=== PATIENT | male | born 1955 | race Caucasian/White ===

== ENCOUNTER 2018-11-19 12:19 | Outpatient (CLI) | payer MEDICARE, SELFPAY ==
--- NOTE | 2018-11-19 12:40 | PC.NURSE ---
pt sent to outpt infusion dept for therapeutic phlebotomy per lab. pt to have blood drawn to confirm results of h/h and iv start per nursing staff. lab staff at to obtain blood for labs.
[2018-11-19 13:20] VITALS: BP 125/68; PULSE 62; RESP 18; TEMP 36.6; O2SAT 97
[2018-11-19 13:46] LABS: Hematocrit 51.2 % (42.0-52.0); Hemoglobin 16.6 g/dL (14.1-18.0)
== END 2018-11-19 13:20 | disposition home or self-care (01) ==
PROVIDERS: PCP Family Medicine; Visit Provider Family Medicine
DX: D75.1 Secondary polycythemia (principal)
CPT/HCPCS: 85014; 85018; 99195

== ENCOUNTER 2020-12-21 09:55 | Outpatient (CLI) | payer MEDICARE, SELFPAY ==
--- NOTE | 2020-12-21 10:05 | PC.NURSE ---
1005: 20g Iv established to the right forearm. positive blood return, flushes with ease and no s/s of infiltration pt vitals assessed before therapeutic phlebotomy as 149/77 temp 98.1 pulse 65 O2 sat 97 RA phlebotomy performed by AMBROSE Dugan. 250ml removed during this session. pt tolerated well.
[2020-12-21 10:38] VITALS: BP 146/78; PULSE 65; RESP 17; TEMP 36.8; O2SAT 97
== END 2020-12-21 10:40 | disposition home or self-care (01) ==
LOC: LAB 09:57 → INF 10:01
PROVIDERS: Visit Provider Family Medicine
DX: D58.2 Other hemoglobinopathies (principal)
CPT/HCPCS: 99195

== ENCOUNTER 2022-11-27 09:31 | Outpatient (CLI) | payer MEDICARE, SELFPAY ==
[2022-11-27 09:46] VITALS: BMI 31.8
[2022-11-27 10:30] LABS: Hematocrit 56.7 % (42.0-52.0); Hemoglobin 18.4 g/dL (14.1-18.0)
[2022-11-27 10:45] VITALS: BP 141/89; PULSE 62; RESP 16; TEMP 36.8; O2SAT 99
[2022-11-27 11:05] VITALS: BP 134/79; PULSE 57; RESP 18; TEMP 36.8; O2SAT 99
== END 2022-11-27 11:10 | disposition home or self-care (01) ==
LOC: LAB 09:33 → INF 09:36
PROVIDERS: Visit Provider Family Medicine
DX: D45 Polycythemia vera (principal)
CPT/HCPCS: 36415; 85014; 85018; 99195

== ENCOUNTER → 2023-01-24 14:58 | Outpatient (CLI) | payer MEDICARE, SELFPAY ==
[2023-01-24 15:59] LABS: Basophils % 0.4 % (0.1-2.0); Eosinophils # 0.4 K/mm3 (0.0-0.4); Eosinophils % 7.4 % (0.1-12.0); Hematocrit 54.8 % (42.0-52.0); Hemoglobin 17.8 g/dL (14.1-18.0); Lymphocytes # 1.7 K/mm3 (0.7-4.5); Lymphocytes % 28.3 % (10-50); Mean Corpuscular HGB Conc 32.4 g/dL (31.8-35.4); Mean Corpuscular Hemoglobin 29.8 pg (27.0-31.2); Mean Corpuscular Volume 91.9 fl (80-94); Mean Platelet Volume 9.3 fl (7.4-10.4); Monocytes # 0.5 K/mm3 (0.1-1.0); Monocytes % 8.1 % (1.7-9.3); Neutrophils # 3.3 K/mm3 (1.8-7.8); Neutrophils % 55.7 % (37.0-80.0); Platelet Count 165 K/mm3 (142-424); Red Blood Count 5.96 M/mm3 (4.60-6.20); Red Cell Distribution Width 15.5 % (11.5-17.5); White Blood Count 5.8 K/mm3 (4.8-10.8)
[2023-01-24 16:18] LABS: Chloride 93 mmol/L (98-107); Potassium 4.8 mmoL/L (3.5-5.1); Sodium 134 mmol/L (136-145)
[2023-01-24 16:20] LABS: Alanine Aminotransferase 29 U/L (12-78); Albumin Level 4.4 g/dl (3.5-5.0); Albumin/Globulin Ratio 1.5 (1.1-1.8); Alkaline Phosphatase 60 U/L (38-126); Anion Gap 11.8 mEq/L (5-15); Aspartate Amino Transferase 31 U/L (17-59); Bilirubin,Total 0.7 mg/dl (0.2-1.3); Blood Urea Nitrogen 10 mg/dl (9-20); Carbon Dioxide 34 mmol/L (22.0-30.0); Estimated Glomerular Filt Rate 60 ml/min (>60); GFR (African American) 73 ML/MIN (>60); Total Protein,Serum 7.4 g/dl (6.3-8.2)
[2023-01-24 16:21] LABS: Calcium 8.8 mg/dl (8.4-10.2); Chol/HDL Ratio 6.9 (1-3.5); Cholesterol 180 mg/dl (140-200); Glucose 191 mg/dl (74-100); HDL Cholesterol 26 mg/dl (40-60); Triglycerides 190 mg/dl (30-150); VLDL Cholesterol 38 mg/dL (0-40)
[2023-01-24 16:37] LABS: Free T4 (Free Thyroxine) 1.15 ng/dl (0.78-2.19)
[2023-01-24 16:52] LABS: Thyroid Stimulating Hormone 2.23 uIU/mL (0.465-4.68)
[2023-01-30 08:18] LABS: Testosterone, Total, LC/MS 344 ng/dL (.)
== END ==
PROVIDERS: PCP Internal Medicine; Visit Provider Internal Medicine
DX: E10.9 Type 1 diabetes mellitus without complications (principal); Z13.220 Encounter for screening for lipoid disorders; Z00.00 Encounter for general adult medical examination without abnormal findings; E29.1 Testicular hypofunction; Z13.29 Encounter for screening for other suspected endocrine disorder; Z13.1 Encounter for screening for diabetes mellitus; Z79.4 Long term (current) use of insulin; Z79.899 Other long term (current) drug therapy
CPT/HCPCS: 80053; 80061; 83036; 84403; 84439; 84443; 85025

== ENCOUNTER → 2023-02-08 13:32 | Outpatient (CLI) | payer MEDICARE, SELFPAY ==
[2023-02-08 14:23] LABS: Microalbumin/Creatinine Ratio 19.3
[2023-02-08 14:58] LABS: Creatinine,Urine Random 230 mg/dL (Not Estab.)
== END ==
PROVIDERS: PCP Internal Medicine; Visit Provider Internal Medicine
DX: E11.9 Type 2 diabetes mellitus without complications (principal); Z79.4 Long term (current) use of insulin
CPT/HCPCS: 82043; 82570

== ENCOUNTER → 2023-02-12 08:17 | Outpatient (CLI) | payer MEDICARE, SELFPAY | PROVIDERS: PCP Student in an Organized Health Care Education/Training Program; Visit Provider Student in an Organized Health Care Education/Training Program | DX: R05.9 Cough, unspecified (principal) | CPT/HCPCS: 87635 ==

== ENCOUNTER 2023-04-20 08:55 | Outpatient (CLI) | payer MEDICARE, SELFPAY ==
--- NOTE | 2023-04-20 09:18 | CT_ITS ---
FINAL REPORT CLINICAL HISTORY: sinusitis FINDINGS: There is no acute fracture. There is a lobular mucoperiosteal thickening in both maxillary sinuses. There are no air-fluid levels. There is abnormal mucoperiosteal thickening in the right cell of the sphenoid sinuses. The right cell is nearly completely opacified. The ostiomeatal units are patent. IMPRESSION: Chronic maxillary and sphenoid sinusitis. Patent ostiomeatal units. Reviewed, Interpreted and Dictated by Jose Palma MD Transcribed by Kim De Leon Authenticated and [facility]
== END 2023-04-20 23:59 ==
LOC: RAD 08:56
PROVIDERS: PCP Internal Medicine; Visit Provider Nurse Practitioner
DX: J32.0 Chronic maxillary sinusitis (principal); J32.3 Chronic sphenoidal sinusitis; J34.89 Other specified disorders of nose and nasal sinuses
CPT/HCPCS: 70486

== ENCOUNTER 2023-07-11 14:44 | Outpatient (CLI) | payer MEDICARE, SELFPAY ==
[2023-07-11 15:18] LABS: Basophils # 0.1 K/mm3 (0-0.2); Basophils % 1.4 % (0.1-2.0); Eosinophils # 0.6 K/mm3 (0.0-0.4); Eosinophils % 8.6 % (0.1-12.0); Hematocrit 56.1 % (42.0-52.0); Hemoglobin 17.9 g/dL (14.1-18.0); Lymphocytes # 1.8 K/mm3 (0.7-4.5); Lymphocytes % 26.6 % (10-50); Mean Corpuscular HGB Conc 31.9 g/dL (31.8-35.4); Mean Corpuscular Hemoglobin 29.2 pg (27.0-31.2); Mean Corpuscular Volume 91.4 fl (80-94); Mean Platelet Volume 8.8 fl (7.4-10.4); Monocytes # 0.6 K/mm3 (0.1-1.0); Monocytes % 8.7 % (1.7-9.3); Neutrophils # 3.7 K/mm3 (1.8-7.8); Neutrophils % 54.8 % (37.0-80.0); Platelet Count 159 K/mm3 (142-424); Red Blood Count 6.14 M/mm3 (4.60-6.20); Red Cell Distribution Width 15.7 % (11.5-17.5); White Blood Count 6.8 K/mm3 (4.8-10.8)
[2023-07-11 15:40] LABS: Alanine Aminotransferase 23 U/L (12-78); Albumin Level 4.3 g/dl (3.5-5.0); Albumin/Globulin Ratio 1.3 (1.1-1.8); Alkaline Phosphatase 56 U/L (38-126); Anion Gap 14.9 mEq/L (5-15); Aspartate Amino Transferase 27 U/L (17-59); Bilirubin,Total 0.8 mg/dl (0.2-1.3); Blood Urea Nitrogen 13 mg/dl (9-20); Calcium 9.4 mg/dl (8.4-10.2); Carbon Dioxide 32 mmol/L (22.0-30.0); Chloride 94 mmol/L (98-107); Cholesterol 187 mg/dl (140-200); Estimated Glomerular Filt Rate 60 ml/min (>60); GFR (African American) 73 ML/MIN (>60); Globulin 3.2 g/dL (1.3-3.2); Glucose 161 mg/dl (74-100); HDL Cholesterol 31 mg/dl (40-60); Potassium 4.9 mmoL/L (3.5-5.1); Sodium 136 mmol/L (136-145); Total Protein,Serum 7.5 g/dl (6.3-8.2); Triglycerides 200 mg/dl (30-150); VLDL Cholesterol 40 mg/dL (0-40)
[2023-07-11 15:52] LABS: Direct LDL Cholesterol 102.29 mg/dL (100-129)
[2023-07-11 16:12] LABS: Prostate Specific Ag Screen 0.9 ng/ml (0.0-4.0); Thyroid Stimulating Hormone 2.02 uIU/mL (0.465-4.68)
[2023-07-11 17:30] LABS: Hemoglobin A1C 9.5 % (4.0-6.0)
[2023-07-13 13:04] LABS: DHEA-Sulfate 46.9 ug/dL (30.9-295.6); Testosterone,Total 909 ng/dL (264-916)
== END 2023-07-11 23:59 | disposition home or self-care (01) ==
LOC: LAB.DROPOF 14:44
PROVIDERS: PCP Nurse Practitioner Family; Visit Provider Nurse Practitioner Family
DX: E29.1 Testicular hypofunction (principal); E11.9 Type 2 diabetes mellitus without complications; Z79.4 Long term (current) use of insulin; Z12.5 Encounter for screening for malignant neoplasm of prostate; D49.7 Neoplasm of unspecified behavior of endocrine glands and other parts of nervous system; Z79.899 Other long term (current) drug therapy
CPT/HCPCS: 80053; 80061; 82626; 83036; 84403; 84443; 85025; G0103

== ENCOUNTER 2023-10-16 14:21 | Outpatient (CLI) | payer MEDICARE, SELFPAY ==
[2023-10-16 14:10] LABS: Basophils # 0.1 K/mm3 (0-0.2); Basophils % 0.7 % (0.1-2.0); Eosinophils # 0.9 K/mm3 (0.0-0.4); Eosinophils % 10.7 % (0.1-12.0); Lymphocytes # 2.6 K/mm3 (0.7-4.5); Lymphocytes % 31.6 % (10-50); Mean Corpuscular HGB Conc 30.5 g/dL (31.8-35.4); Mean Corpuscular Volume 91.9 fl (80-94); Mean Platelet Volume 8.8 fl (7.4-10.4); Monocytes # 0.6 K/mm3 (0.1-1.0); Monocytes % 7.1 % (1.7-9.3); Neutrophils # 4.1 K/mm3 (1.8-7.8); Neutrophils % 49.8 % (37.0-80.0); Platelet Count 177 K/mm3 (142-424); Red Blood Count 6.42 M/mm3 (4.60-6.20); Red Cell Distribution Width 14.8 % (11.5-17.5); White Blood Count 8.2 K/mm3 (4.8-10.8)
[2023-10-16 14:37] LABS: Alanine Aminotransferase 22 U/L (12-78); Albumin Level 4.1 g/dl (3.5-5.0); Albumin/Globulin Ratio 1.2 (1.1-1.8); Alkaline Phosphatase 60 U/L (38-126); Aspartate Amino Transferase 30 U/L (17-59); Bilirubin,Total 0.8 mg/dl (0.2-1.3); Blood Urea Nitrogen 10 mg/dl (9-20); Calcium 9.1 mg/dl (8.4-10.2); Carbon Dioxide 33 mmol/L (22.0-30.0); Chloride 97 mmol/L (98-107); Estimated Glomerular Filt Rate 60 ml/min (>60); GFR (African American) 73 ML/MIN (>60); Globulin 3.4 g/dL (1.3-3.2); Glucose 145 mg/dl (74-100); Sodium 136 mmol/L (136-145); Total Protein,Serum 7.5 g/dl (6.3-8.2)
[2023-10-16 16:07] LABS: Hemoglobin A1C 8.8 % (4.0-6.0)
[2023-10-18 14:14] LABS: DHEA-Sulfate 59.4 ug/dL (30.9-295.6)
[2023-10-24 15:12] LABS: Free Testosterone (Direct) 30.9 pg/mL (6.6-18.1); Testosterone, Total, LC/MS 2076.7 ng/dL (264.0-916.0)
== END 2023-10-16 23:59 | disposition home or self-care (01) ==
LOC: LAB.DROPOF 14:22
PROVIDERS: Internal Medicine; PCP Nurse Practitioner Family; Visit Provider Nurse Practitioner Family
DX: R79.89 Other specified abnormal findings of blood chemistry (principal); E11.9 Type 2 diabetes mellitus without complications; E23.2 Diabetes insipidus; E29.1 Testicular hypofunction; D49.7 Neoplasm of unspecified behavior of endocrine glands and other parts of nervous system; Z79.4 Long term (current) use of insulin; Z79.85 Long-term (current) use of injectable non-insulin antidiabetic drugs
CPT/HCPCS: 80053; 82626; 83036; 85025

== ENCOUNTER 2023-11-05 14:53 | Outpatient (CLI) | payer MEDICARE, SELFPAY ==
[2023-11-17 21:07] LABS: Testosterone, Total, LC/MS 60 ng/dL (.)
== END 2023-11-05 23:59 | disposition home or self-care (01) ==
LOC: LAB.DROPOF 14:54
PROVIDERS: PCP Nurse Practitioner Family; Visit Provider Nurse Practitioner Family
DX: R79.89 Other specified abnormal findings of blood chemistry (principal); E29.1 Testicular hypofunction; E11.9 Type 2 diabetes mellitus without complications; I10 Essential (primary) hypertension
CPT/HCPCS: 84403

== ENCOUNTER 2024-01-16 10:11 | Outpatient (CLI) | payer MEDICARE, SELFPAY ==
[2024-01-16 13:50] LABS: Microalbumin/Creatinine Ratio 18.3
[2024-01-16 13:54] LABS: Creatinine,Urine Random 181 mg/dL (Not Estab.)
[2024-01-16 14:01] LABS: Alanine Aminotransferase 21 U/L (12-78); Albumin Level 4.3 g/dl (3.5-5.0); Albumin/Globulin Ratio 1.5 (1.1-1.8); Alkaline Phosphatase 55 U/L (38-126); Anion Gap 14.4 mEq/L (5-15); Aspartate Amino Transferase 27 U/L (17-59); Bilirubin,Total 0.9 mg/dl (0.2-1.3); Blood Urea Nitrogen 9 mg/dl (9-20); Calcium 9.4 mg/dl (8.4-10.2); Carbon Dioxide 32 mmol/L (22.0-30.0); Chloride 95 mmol/L (98-107); Chol/HDL Ratio 5.6 (1-3.5); Cholesterol 169 mg/dl (140-200); Estimated Glomerular Filt Rate 74 ml/min (>60); GFR (African American) 90 ML/MIN (>60); Globulin 2.8 g/dL (1.3-3.2); Glucose 195 mg/dl (74-100); HDL Cholesterol 30 mg/dl (40-60); Magnesium 1.7 mg/dl (1.6-2.3); Potassium 4.4 mmoL/L (3.5-5.1); Sodium 137 mmol/L (136-145); Total Protein,Serum 7.1 g/dl (6.3-8.2); Triglycerides 172 mg/dl (30-150); VLDL Cholesterol 34 mg/dL (0-40)
[2024-01-16 14:13] LABS: Direct LDL Cholesterol 101.64 mg/dL (100-129)
[2024-01-16 14:33] LABS: Thyroid Stimulating Hormone 1.35 uIU/mL (0.465-4.68)
[2024-01-16 18:32] LABS: HIV (1&2) Antibody Rapid NONREACTIVE (NONREACTIVE)
[2024-01-17 07:33] LABS: HCV Ab Non Reactive (Non Reactive)
[2024-01-26 04:08] LABS: Free Testosterone (Direct) 10.2 pg/mL (6.6-18.1); Testosterone, Total, LC/MS 683.9 ng/dL (264.0-916.0)
== END 2024-01-16 23:59 | disposition home or self-care (01) ==
LOC: LAB.DROPOF 01-18 10:13
PROVIDERS: PCP Nurse Practitioner Family; Visit Provider Nurse Practitioner Family
DX: E11.9 Type 2 diabetes mellitus without complications (principal); R79.89 Other specified abnormal findings of blood chemistry; E78.5 Hyperlipidemia, unspecified; Z11.59 Encounter for screening for other viral diseases; Z79.4 Long term (current) use of insulin; Z11.4 Encounter for screening for human immunodeficiency virus [HIV]
CPT/HCPCS: 80053; 80061; 82043; 82570; 82626; 83735; 84443; 86803; 87389

== ENCOUNTER 2024-04-12 08:50 | Outpatient (CLI) | payer MEDICARE, SELFPAY ==
[2024-04-12 21:22] LABS: Coronavirus 19, PCR Not Detected (NotDetected); Human Rhinovirus Not Detected (NotDetected); Influenza B, PCR Not Detected (NotDetected); Respiratory Syncytial Virus Not Detected (NotDetected)
[2024-04-13 03:30] LABS: Influenza A, PCR Detected (NotDetected)
== END 2024-04-12 23:59 | disposition home or self-care (01) ==
LOC: LAB.DROPOF 04-13 03:57
PROVIDERS: PCP Nurse Practitioner; Visit Provider Nurse Practitioner
DX: R05.9 Cough, unspecified (principal); R50.9 Fever, unspecified
CPT/HCPCS: 87631

== ENCOUNTER 2024-05-06 15:58 | Outpatient (CLI) | payer MEDICARE, SELFPAY ==
[2024-05-06 13:46] LABS: Basophils % 0.6 % (0.1-2.0); Eosinophils # 0.5 K/mm3 (0.0-0.4); Eosinophils % 7.4 % (0.1-12.0); Hematocrit 55.7 % (42.0-52.0); Lymphocytes # 2.1 K/mm3 (0.7-4.5); Lymphocytes % 31.7 % (10-50); Mean Corpuscular HGB Conc 33.8 g/dL (31.8-35.4); Mean Corpuscular Hemoglobin 28.6 pg (27.0-31.2); Mean Corpuscular Volume 84.8 fl (80-94); Mean Platelet Volume 10.9 fl (7.4-10.4); Monocytes # 0.7 K/mm3 (0.1-1.0); Neutrophils # 3.2 K/mm3 (1.8-7.8); Neutrophils % 48.7 % (37.0-80.0); Platelet Count 186 K/mm3 (142-424); Red Blood Count 6.57 M/mm3 (4.60-6.20); Red Cell Distribution Width 13.7 % (11.5-17.5); White Blood Count 6.6 K/mm3 (4.8-10.8)
[2024-05-06 19:28] LABS: Albumin Level 4.7 g/dl (3.5-5.0); Chloride 97 mmol/L (98-107); Potassium 5.6 mmoL/L (3.5-5.1); Sodium 134 mmol/L (136-145)
[2024-05-06 19:30] LABS: Blood Urea Nitrogen 20 mg/dl (9-20); Estimated Glomerular Filt Rate 66 ml/min (>60); GFR (African American) 80 ML/MIN (>60)
[2024-05-06 19:31] LABS: Alanine Aminotransferase 25 U/L (12-78); Albumin/Globulin Ratio 1.6 (1.1-1.8); Alkaline Phosphatase 55 U/L (38-126); Anion Gap 13.6 mEq/L (5-15); Aspartate Amino Transferase 32 U/L (17-59); Bilirubin,Total 0.8 mg/dl (0.2-1.3); Calcium 9.4 mg/dl (8.4-10.2); Carbon Dioxide 29 mmol/L (22.0-30.0); Chol/HDL Ratio 6.6 (1-3.5); Cholesterol 178 mg/dl (140-200); Glucose 170 mg/dl (74-100); HDL Cholesterol 27 mg/dl (40-60); Total Protein,Serum 7.7 g/dl (6.3-8.2); Triglycerides 165 mg/dl (30-150); VLDL Cholesterol 33 mg/dL (0-40)
[2024-05-06 19:42] LABS: Direct LDL Cholesterol 107.92 mg/dL (100-129)
[2024-05-07 03:09] LABS: Hemoglobin A1C 10.3 % (4.0-6.0)
[2024-05-13 16:32] LABS: Testosterone, Total, LC/MS 793 ng/dL (.)
== END 2024-05-06 23:59 | disposition home or self-care (01) ==
LOC: LAB.DROPOF 15:58
PROVIDERS: PCP Internal Medicine; Visit Provider Internal Medicine
DX: Z13.220 Encounter for screening for lipoid disorders (principal); E11.9 Type 2 diabetes mellitus without complications; Z79.4 Long term (current) use of insulin; Z79.899 Other long term (current) drug therapy; E29.1 Testicular hypofunction
CPT/HCPCS: 80053; 80061; 83036; 84403; 85025

== ENCOUNTER 2024-07-17 09:00 | Day surgery (SDC) | payer MEDICARE, SELFPAY ==
[2024-07-15 11:32] VITALS: BMI 31.0
[2024-07-17] VITALS (7 sets, daily range): BP systolic 116–147; BP diastolic 72–86; PULSE 56–67; RESP 16–18; TEMP 36.2–36.4; O2SAT 2–99
[2024-07-17] MEDS: LACTATED RINGERS 1000ML 1,000 ML 50 ML IV (09:50)
--- NOTE | 2024-07-17 10:09 | EXP.ANES.CKL ---
[facility] Disclaimer: The information contained in this section may have been updated after the patient was seen, as this information can be updated by other users. Medical History Chronic maxillary sinusitis Deviated nasal septum Hypertension Hypertrophy of nasal turbinates Nasal septal spur Neoplasm of pituitary gland Pituitary cyst Skin cancer Sphenoid sinusitis Surgical History History of back surgery History of carpal tunnel release of both wrists once on the left, twice on the right Hx of rhinoplasty [place] teeth removed Family History Other No significant family history Social History Smoking Status: Former smoker alcohol intake: never substance use type: denies use current occupational status: unemployed Travel in the last 8 weeks?: None household members: spouse housing: house caffeine: No [facility] Anesthesia Checklist Patient Identification Patient Identification: Verbal (Name & ) Structural Data Admitted From: Home Planned Operative Procedure/s: colonoscopy Consent for Planned Operative Procedure(s) Verified: Yes NPO Status Verified Time NPO: 00:00 Additional verifications Anesthesia Reactions: No Hx Blood Transfusions: No Blood Transfusion Reaction: No Airway Assessment Mallampati Score:: Class II C-Spine Mobility Assessed: Yes TMJ Mobility Assessed: Yes Dentition: Good Dentition Neurological Assessment Level of Consciousness: Awake, Alert and Appropriate Anesthesia Plan Anesthesia Risk discussed: Yes Anesthesia Plan: Verified ASA Class: II Anesthesia Type: MAC
--- NOTE | 2024-07-17 10:29 | EXP.HP ---
History of Present Illness *Admission Date: 07/17/24 *Reason for visit:: Screening for colon cancer *History of present illness: Mr. Womack is a 69-year-old gentleman who is here for screening for colon cancer. His last colonoscopy was 10 years ago. He does have a strong family history of cancer and 5 of his siblings have had cancer (lung, breast, brain and gallbladder) but he has no family history of colon cancer. The examination is deemed medically necessary for screening colonoscopy. The patient has been seen, interviewed and examined prior to the procedure by both myself and the anesthesia provider. [facility] Disclaimer: The information contained in this section may have been updated after the patient was seen, as this information can be updated by other users. Medical History Chronic maxillary sinusitis Deviated nasal septum Hypertension Hypertrophy of nasal turbinates Nasal septal spur Neoplasm of pituitary gland Pituitary cyst Skin cancer Sphenoid sinusitis Surgical History History of back surgery History of carpal tunnel release of both wrists once on the left, twice on the right Hx of rhinoplasty [place] teeth removed Family History Other No significant family history Social History (Updated 07/17/24 @ 10:10 by Eugenio Oakes CRNA) Smoking Status: Former smoker alcohol intake: never substance use type: denies use current occupational status: unemployed Travel in the last 8 weeks?: None household members: spouse housing: house caffeine: No Have you lived/traveled outside US in past 30 days?: No Contact w/someone who lives/traveled outside US past 30 days?: No Exposure to someone with infectious disease in past 14 days?: No Do you have a fever (greater than 100.4 F or 38 C)?: No Have you tested positive for COVID-19?: No Exposed to someone with COVID-19 in past 14 days?: No Do you have a sore throat?: No Do you have a cough?: No Do you have any weakness?: No Do you have any diarrhea?: No Are you experiencing any unusual bleeding?: No Do you have any muscle aches/pain?: No Do you have any abdominal pain?: No Are you experiencing loss of taste or smell?: No Other Medical History Have you received the Pneumonia Vaccine: Yes Review of Systems Review of Systems Review of systems (narrative): Negative *Cardiovascular Comments: Negative *Gastrointestinal Comments: Negative *Genitourinary Comments: Negative *Musculoskeletal Comments: Negative *Neurologic Comments: Negative Meds Home Medications and Allergies Home Medications ?Medication ?Instructions ?Recorded ?Confirmed ?Type methadone 10 mg tablet 10 mg PO TID Pain 11/19/18 07/17/24 History desmopressin 0.1 mg tablet (DDAVP) 0.1 mg PO BID 90 days #180 tabs 07/11/23 07/17/24 Rx blood sugar diagnostic (Accu-Chek #100 ea 04/02/24 07/15/24 Rx Ailin Plus test strips) lisinopril 20 mg tablet See Rx Instructions .Route 05/02/24 07/17/24 Rx .COMPLEX #90 tabs insulin degludec 100 unit/mL (3 36 unit (0.36 mL) SQ DAILY #15 mL 05/20/24 07/17/24 Rx mL) subcutaneous pen (Tresiba FlexTouch U-100 insulin) New Prescriptions to Start Prescriptions: Allergies Allergy/AdvReac Type Severity Reaction Status Date / Time No Known Allergies Allergy Verified 07/17/24 09:35 Exam Data for Last 24 hours Vital signs and Labs for Last 24 Hours: Temp Pulse Resp BP Pulse Ox O2 Del Method 97.6 F 67 18 147/86 H 96 Room Air 07/17/24 09:51 07/17/24 09:51 07/17/24 09:51 07/17/24 09:51 07/17/24 09:51 07/17/24 09:51 I & O for Last 24 hours: Intake & Output 07/14/24 07/15/24 07/16/24 07/17/24 23:59 23:59 23:59 23:59 Weight 229 lb *Routine HEENT Exam Head: Present normocephalic Eye: Present EOMI and PERRL ENT: Present mucous membranes moist *Routine Neck Exam Neck: Present supple *Routine Respiratory Exam Respiratory: Present CTA bilaterally *Routine Cardiovascular Exam Cardiovascular: Present RRR *Routine Abdominal Exam Abdominal: Present soft and normoactive bowel sounds; Absent tenderness *Routine Rectal Exam Rectal:: deferred *Routine Genitalia Exam Genitalia:: deferred *Routine Extremities Exam Extremities: Absent cyanosis, clubbing or edema *Routine Skin Exam Skin: Present warm; Absent rash *Routine Neurological Exam Neurological: Present alert and oriented X3 Assessment and Plan *Assessment and plan (1) Screening for colorectal cancer: Status: Acute Category: Medical Code(s): Z12.11 - Encounter for screening for malignant neoplasm of colon; Z12.12 - Encounter for screening for malignant neoplasm of rectum Plan A/P: 1. Screening for colon cancer is the preprocedural diagnosis. The patient will be anesthetized/sedated using MAC sedation. The patient has been seen and examined. Cardiac and lung assessment prior to the examination is stable. Proceed with planned screening colonoscopy.
--- NOTE | 2024-07-17 11:11 | P.PCN_ITS ---
[facility] Procedure Note Date: 07/17/24 Time: 11:23 Procedure Note:: Colonoscopy Procedure Report: Colonoscopy Endoscopist: Mike Harrison II, MD Referring physician: Solo Lema DO Date of Procedure: July 17, 2024 Equipment: Olympus 190 variable stiffness pediatric colonoscope Sedation: MAC sedation Indication: Mr. Womack is a 69-year-old gentleman who is here for screening colonoscopy. His last colonoscopy was 10 years ago. He reports no family history of colon cancer but does have a strong family history of cancer. He has 5 siblings with cancer (breast, lung, brain and gallbladder). The patient himself has had several skin cancers removed. The patient reports no rectal bl eeding, abdominal pain, weight loss or change in bowel habits. He does have some opioid-induced constipation. Procedure: Prior to the procedure, a history and physical exam was performed, and patient's medications and allergies were reviewed. The risks, benefits and alternatives of the sedation and procedure were discussed with the patient. All questions were answered and informed consent was obtained. The patient was brought to the procedure room. Patient identification and proposed procedure were verified by the physician and the nurse. The patient was placed in a left lateral decubitus position and the scope was passed under direct vision. Throughout the procedure, the patient's blood pressure, pulse, and oxygen saturations were monitored continuously. The colonoscopy was accomplished without difficulty. The patient tolerated the procedure well. Findings: On digital rectal examination there was normal rectal tone. There were no external hemorrhoids. The prostate was 2+, smooth, soft, mildly asymmetric without nodules. The colonoscope was introduced through the anal canal to the rectum and advanced to the cecum. The ileocecal valve and appendiceal orifice were identified. The scope was advanced a short distance into the ileum which appeared grossly normal. The scope was then withdrawn into the colon. The cecum, ascending, transverse, descending, sigmoid and rectum were grossly normal. There were no mucosal abnormalities identified. Upon retroflexion within the rectum there were grade 1-2 internal hemorrhoids. The preparation was excellent throughout with [place] Preparation Score of 9. The cecal time was 10 minutes. Impression: 1. Normal colonoscopy with intubation of the terminal ileum Plan: The patient will not require surveillance colonoscopy again for 10 years by ACS guidelines. I would consider initiation of Relistor (methylnaltrexone). Relistor works differently from okwz-asa-euvsttc (OTC) laxatives and it is specifically designed to target the constipating effect opioids have in the gut by helping keep opioids from attaching to the mu-opioid receptors (in the colon), without impacting opioid pain relief in the central nervous system. These mu receptors in the colon when bound up by opioids cause significant constipation. In other words, Relistor works by precisely treating the source of the opioid-induced constipation without affecting the pain relief from the opioid treatment. The Relistor works fairly quickly and can work within 30 minutes but usually results within 4 hours.
[2024-07-17 13:39] LABS: POC Glucose,Bedside 164 (70-110)
== END 2024-07-17 12:07 | disposition home or self-care (01) ==
PROVIDERS: PCP Internal Medicine; Visit Provider Internal Medicine Gastroenterology
PROC: 0DJD8ZZ Inspection of Lower Intestinal Tract, Via Natural or Artificial Opening Endoscopic (ICD-10-PCS; CPT 45378; principal; 2024-07-17 10:00)
DX: Z12.11 Encounter for screening for malignant neoplasm of colon (principal); K59.03 Drug induced constipation; Z85.828 Personal history of other malignant neoplasm of skin; Z80.3 Family history of malignant neoplasm of breast; Z80.1 Family history of malignant neoplasm of trachea, bronchus and lung; Z80.0 Family history of malignant neoplasm of digestive organs; Z80.8 Family history of malignant neoplasm of other organs or systems; K64.8 Other hemorrhoids; E23.2 Diabetes insipidus; Z87.891 Personal history of nicotine dependence
CPT/HCPCS: G0121; 82962; J7120

== ENCOUNTER 2024-07-25 10:02 | Outpatient (CLI) | payer MEDICARE, SELFPAY ==
[2024-07-25 14:52] LABS: Basophils % 0.4 % (0.1-2.0); Eosinophils # 0.6 Kmm3 (0.0-0.4); Eosinophils % 11.2 % (0.1-12.0); Hematocrit 52.9 % (42.0-52.0); Hemoglobin 17.9 g/dL (14.1-18.0); Immature Granulocytes # 0.01 10^3uL; Immature Granulocytes % 0.2 %; Lymphocytes % 35.4 % (10-50); Mean Corpuscular HGB Conc 33.8 g/dL (31.8-35.4); Mean Corpuscular Hemoglobin 29.1 pg (27.0-31.2); Mean Corpuscular Volume 85.9 fl (80-94); Mean Platelet Volume 10.6 fl (7.4-10.4); Monocytes # 0.5 K/mm3 (0.1-1.0); Monocytes % 9.6 % (1.7-9.3); Neutrophils # 2.4 K/mm3 (1.8-7.8); Neutrophils % 43.2 % (37.0-80.0); Nucleated Red Blood Cells # 0 10^3/uL; Nucleated Red Blood Cells % 0 %; Platelet Count 175 K/mm3 (142-424); Red Blood Count 6.16 M/mm3 (4.60-6.20); Red Cell Distribution Width 13.8 % (11.5-17.5); Red Cell Distribution Width-SD 43.1 fL; White Blood Count 5.5 K/mm3 (4.8-10.8)
[2024-07-25 15:25] LABS: Hemoglobin A1C 10.3 % (4.0-6.0)
[2024-07-25 15:29] LABS: Alanine Aminotransferase 26 U/L (12-78); Albumin Level 4.5 g/dl (3.5-5.0); Albumin/Globulin Ratio 1.5 (1.1-1.8); Alkaline Phosphatase 62 U/L (38-126); Anion Gap 13.1 mEq/L (5-15); Aspartate Amino Transferase 29 U/L (17-59); Bilirubin,Total 0.8 mg/dl (0.2-1.3); Blood Urea Nitrogen 16 mg/dl (9-20); Calcium 9.8 mg/dl (8.4-10.2); Carbon Dioxide 32 mmol/L (22.0-30.0); Chloride 99 mmol/L (98-107); Estimated Glomerular Filt Rate 66 ml/min (>60); GFR (African American) 80 ML/MIN (>60); Glucose 224 mg/dl (74-100); Sodium 138 mmol/L (136-145); Total Protein,Serum 7.5 g/dl (6.3-8.2)
[2024-07-25 15:50] LABS: Potassium 6.1 mmoL/L (3.5-5.1)
[2024-07-31 22:16] LABS: Testosterone, Total, LC/MS 48 ng/dL (.)
== END 2024-07-25 23:59 | disposition home or self-care (01) ==
LOC: LAB.DROPOF 07-28 10:03
PROVIDERS: PCP Internal Medicine; Visit Provider Internal Medicine
DX: Z00.00 Encounter for general adult medical examination without abnormal findings (principal); E29.1 Testicular hypofunction; Z13.1 Encounter for screening for diabetes mellitus
CPT/HCPCS: 80053; 83036; 84403; 85025

== ENCOUNTER 2024-07-29 08:52 | Outpatient (CLI) | payer MEDICARE, SELFPAY ==
[2024-07-29 14:15] LABS: Alanine Aminotransferase 22 U/L (12-78); Albumin Level 4.4 g/dl (3.5-5.0); Albumin/Globulin Ratio 1.4 (1.1-1.8); Alkaline Phosphatase 60 U/L (38-126); Anion Gap 15.4 mEq/L (5-15); Aspartate Amino Transferase 27 U/L (17-59); Bilirubin,Total 0.8 mg/dl (0.2-1.3); Blood Urea Nitrogen 19 mg/dl (9-20); Calcium 9.3 mg/dl (8.4-10.2); Carbon Dioxide 28 mmol/L (22.0-30.0); Chloride 100 mmol/L (98-107); Estimated Glomerular Filt Rate 60 ml/min (>60); GFR (African American) 72 ML/MIN (>60); Globulin 3.1 g/dL (1.3-3.2); Glucose 154 mg/dl (74-100); Potassium 5.4 mmoL/L (3.5-5.1); Sodium 138 mmol/L (136-145); Total Protein,Serum 7.5 g/dl (6.3-8.2)
== END 2024-07-29 23:59 | disposition home or self-care (01) ==
LOC: LAB.DROPOF 07-30 11:10
PROVIDERS: PCP Internal Medicine; Visit Provider Internal Medicine
DX: E87.5 Hyperkalemia (principal)
CPT/HCPCS: 80053

== ENCOUNTER 2024-08-01 07:46 | Outpatient (CLI) | payer MEDICARE, SELFPAY ==
--- NOTE | 2024-08-01 08:15 | PC.NURSE ---
0815-PT D/C HOME AND DID NOT WANT TO DO THERAPEUTIC PHLEBOTOMY FOR HGB 17.2
== END 2024-08-01 08:15 | disposition home or self-care (01) ==
LOC: INF 07:48
PROVIDERS: PCP Internal Medicine; Visit Provider Family Medicine
DX: D45 Polycythemia vera (principal)

== ENCOUNTER 2024-09-26 07:26 | Emergency (ER) | payer MEDICARE, SELFPAY ==
--- OUTSIDE RECORDS SUMMARY | 2024-08-27 11:45 | XMS_ITS | Encounter Summary ---
Author Organization [facility] Address [address] [place] [address] Care Team Providers Care Signalman Name Role Phone ToreySolo zurita Ernie Primary Care Provider + Reason for Visit * Reason Comments Diabetes Type 2 diabetes amaury itus with hyperglycemia, with long-term current use of insulin Hypertension Hyperlipidemia Encounter Details Date Type Department Care Team (Late st Contact Info) Description 08/27/2024 11:45 AM EDT Office Visit [facility] ENDOCR[facility]OLOGY [address] [phone] Ellis Chang MD [address] [id number] Type 2 diabetes mellitus with hyperglycemia, with long-term current use of insulin (Primary Dx); Essential hypertension; Mixed hyperlipidemia Social History Tobacco Use Types Packs/Day Years Used Date Smoking Tobacco: Former Cigarettes 1 25 1 967 - 1981 Smokeless Tobacco: Never Tobacco Cessation:Counseling Given: Not Answered Alcohol Use Standard Drinks/Week Comments Not Currently 0 (1 standard drink = 0.6 oz pur e alcohol) PHQ-2 Answer Date Recorded Retired PHQ-9: Brief Depression Severity Measure Score 0 08/21/2022 PHQ-2 Answer Date Recorded Retired PHQ-9: Brief Depression Severity Measure Score 0 08/21/2022 Sex and Gender Information Value Date Recorded Sex Assigned at Not on file Legal Sex Male 1:27 PM EDT Gender Identity Not on file Sexual Orientation Not on file documented as of this encounter Last Filed Vital Signs Vital Sign Reading Time Taken Comments Blood Pressure 170/98 08/27/2024 11:37 AM EDT Pulse 65 08/27/2024 11:37 AM EDT Temperature - - Respiratory Rate - - Oxygen Saturation 99% 08/27/2024 11:37 AM EDT Inhaled Oxygen Concentration - - Weight 101 kg (222 lb) 08/27/2024 11:37 AM EDT Height 182.9 cm (6') 08/27/2024 11:37 AM EDT Body Mass Index 30.11 08/27/2024 11:37 AM EDT documented in this encounter Progress Notes * Ellis Chang MD - 08/27/2024 12:08 PM EDTAssociated Problem(s): Essential hypertension BP elevated today. He reports having some lower BP at home and stopped the lisinopril. We discussed taking 1/2 tablet of lisinopril. * Ellis Chang MD - 08/27/2024 12:07 PM EDTAssociated Problem(s): Mixed hyperlipidemia Trying to get recent labs from his PCP. * Ellis Chang MD - 08/27/2024 12:07 PM EDTAssociated Problem(s): Type 2 diabetes mellitus with hyperglycemia, with long-term current use of insulin Diabetes is improving with treatment. He has been getting ozempic samples and doing well - tolerating it okay, losing weight and better glucose levels. We discussed treatment options. He is doing okay on ozempic. Will see if we can get this through PAP. Diabetes will be reassessed in 6 months. [employer] G7 CGM was downloaded today. Data was reviewed from 08/14/24 to 08/27/24. This showed fairly good glucose control with mild postprandial spikes. Time in range was 79%. Encouraged him to continueozempic treatment. * Ellis Chang MD - 08/27/2024 11:45 AM EDT Images from the original note were not included. Office Note Date: 08/27/2024 Patient Name: Amandeep Womack : 1955 Chief Complaint Patient presents with Diabetes Type 2 diabetes mellitus with hyperglycemia, with long-term current use of insulin Hypertension Hyperlipidemia History of Present Illness: Amandeep Womack is a 69 y.o. male who presents for Diabetes type 2. Diagnosed in: 1999. Treated in past with oral agents. He has had tolerability issues with several DM meds. GI issues with metformin, ozempic and jardiance. He claimed dyspnea with glimepiride. Current treatments: ozempic samples. Number of insulin shots per day: none. Checks blood sugar 288 times a day - on DexCom G7. Has low blood sugar: no. Aspirin use: No. Statin use: No. ALPHONSE-I/ARB use: Yes. Change in health since last visit: none. Last eye exam: 11/2020. He reports h/o surgery for pituitary cyst. He developed DI. He has been treated with ddAVP which controls the DI. It has been 2 years since his last visit with us. Subjective Diabetic Complications: Eyes: No Kidneys: No Feet: Yes - numbness Heart: No Diet and Exercise: Meals per day: 4 Minutes of exercise per week: 0 mins. Review of Systems: Review of Systems Constitutional: Negative. Cardiovascular: Negative. Gastrointestinal: Negative. Endocrine: Negative. The following portions of the patient's history were reviewed and updated as appropriate: allergies, current medications, past family history, past medical history, past social history, past surgicalhistory, and problem list. Objective Visit Vitals BP 170/98 (BP Location: Right arm, Patient Position: Sitting, Cuff Size: Adult) Pulse 65 Ht 182.9 cm (72 ) Wt 101 kg (222 lb) SpO2 99% BMI 30.11 kg/m?? Physical Exam: Physical Exam Constitutional: Appearance: Normal appearance. Cardiovascular: Pulses: Dorsalis pedis pulses are 2+ on the right side and 2+ on the left side. Posterior tibial pulses are 2+ on the right side and 2+ on the left side. Musculoskeletal: Right foot: Deformity present. Feet: Right foot: Protective Sensation: 5 sites tested. 5 sites sensed. Skin integrity: Skin integrity normal. Toenail Condition: Right toenails are normal. Left foot: Protective Sensation: 5 sites tested. 5 sites sensed. Skin integrity: Skin integrity normal. Toenail Condition: Left toenails are normal. Comments: Right 2nd hammer toe Neurological: Mental Status: He is alert. Labs: HbA1c Lab Results Component Value Date HGBA1C 9.6 09/12/2022 CMP Lab Results Component Value Date GLUCOSE 278 (H) 06/07/2022 BUN 16 06/07/2022 CREATININE 1.09 06/07/2022 EGFRIFNONA 55 (L) 12/02/2020 EGFRIFAFRI 67 12/02/2020 BCR 15 06/07/2022 K 4.8 06/07/2022 CO2 25 06/07/2022 CALCIUM 9.9 06/07/2022 AST 17 06/07/2022 ALT 22 06/07/2022 Lipid Panel Lab Results Component Value Date HDL Cholesterol 34 (L) 02/21/2022 LDL Chol Calc (NIH) 108 (H) 02/21/2022 Triglycerides 197 (H) 02/21/2022 TSH Lab Results Component Value Date TSH 2.640 06/07/2022 FREET4 1.04 02/14/2018 Hemoglobin A1C No components found for: HGBA1C Microalbumin/Creatinine Lab Results Component Value Date MALBCRERATIO 13 06/07/2022 CREATINIURIN 79.2 06/07/2022 MICROALBUR 10.6 06/07/2022 Assessment / Plan Assessment & Plan: Diagnoses and all orders for this visit: 1. Type 2 diabetes mellitus with hyperglycemia, with long-term current use of insulin (Primary) Assessment & Plan: Diabetes is improving with treatment. He has been getting ozempic samples and doing well - tolerating it okay, losing weight and better glucose levels. We discussed treatment options. He is doing okay on ozempic. Will see if we can get this through PAP. Diabetes will be reassessed in 6 months. DexCom G7 CGM was downloaded today. Data was reviewed from 08/14/24 to 08/27/24. This showed fairly good glucose control with mild postprandial spikes. Time in range was 79%. Encouraged him to continue ozempic treatment. Orders: - POC Glucose, Blood - Cancel: POC Glycosylated Hemoglobin (Hb A1C) - Microalbumin / Creatinine Urine Ratio - Urine, Clean Catch; Future - Microalbumin / Creatinine Urine Ratio - Urine, Clean Catch 2. Essential hypertension Assessment & Plan: BP elevated today. He reports having some lower BP at home and stopped the lisinopril. We discussed taking 1/2 tablet of lisinopril. 3. Mixed hyperlipidemia Assessment & Plan: Trying to get recent labs from his PCP. Current Outpatient Medications Medication Instructions Blood Glucose Monitoring Suppl (TRUE METRIX METER) w/Device kit No dose, route, or frequency recorded. Continuous Glucose Sensor (Dexcom G7 Sensor) misc 1 each, Every 10 Days desmopressin (DDAVP) 0.1 MG tablet Oral, 2 Times Daily glucose blood test strip Check sugars daily and as needed. hydrocortisone 2.5 % ointment 1 Application, As Needed Insulin Pen Needle (Pen [place]) 32G X 4 MM misc 1 each, Not Applicable, Daily ketoconazole (NIZORAL) 2 % shampoo Weekly methadone (DOLOPHINE) 10 MG tablet 2 tablets, Every 8 Hours Testosterone Cypionate (DEPOTESTOTERONE CYPIONATE) 200 MG/ML injection INJECT 1 ML INTRAMUSCULARLY EVERY 10 DAYS DIRECTED *BRING VIAL TO OFFICE FOR ADMINISTRATION Return in about 6 months (around 02/27/2025) for Recheck with A1c. Electronically signed by: Ellis Chang MD 08/27/2024 documented in this encounter Plan of Treatment Upcoming Encounters Date Type Department Care Team (Late st Contact Info) Description 04/29/2025 9:30 AM EST Office Visit [facility] ENDOCR[facility]OLOG[facility] [address] [phone] Ellis Chang MD [address] [phone] documented as of this encounter Procedures Procedure Name Priority Date/Time Associated Diagnosis Comments MICROALBUMIN / CREATININE URINE RATIO Routine 08/27/2024 12:16 PM EDT Type 2 diabetes mellitus with hyperglycemia, with long-term current use of insulin POCT GLUCOSE, BLD (NON STRIP) Routine 08/27/2024 11:50 AM EDT Type 2 diabetes mellitus with hyperglycemia, with long-term current use of insulin documented in this encounter Results * Microalbumin / Creatinine Urine Ratio - Urine, Clean Catch (08/27/2024 12:16 PM EDT) Microalbumin/C reatinine Ratio 12.4 0.0 - 29.0 mg/g 08/28/2024 12:30 AM EDT [facility] Creatinine, Urine 137.3 mg/dL 08/28/2024 12:30 AM EDT [facility] Microalbumin, Urine 1.7 mg/dL 08/28/2024 12:30 AM EDT [facility] Urine Urine specimen obtained by clean catch procedure / Unknown Collection / Unknown 08/27/2024 12:16 PM EDT 08/27/2024 12:16 PM EDT Ellis Chang MD URINE ORDERABLES Final Re sult [facility]
[address] [place] [address], * (ABNORMAL) POC Glucose, Blood (08/27/2024 11:50 AM EDT) Glucose 150(A) 70 - 130 mg/dL Lot Number [id number] Expiration Date 02/08/25 Blood 08/27/2024 11:5 0 AM EDT Ellis Chang MD POINT OF CARE TEST ORDERA BLES Final Result documented in this encounter Visit Diagnoses Diagnosis Type 2 diabetes mellitus with hyperglycemia, with long-term current use of insulin- Primary Essential hypertension Unspecified essential hypertension Mixed hyperlipidemia documented in this encounter Care Teams Signalman Relationship Specialty Start Date End Date Solo Lema DO [address] [place] [address] [place] [id number] PCP - General Internal Medicine 08/27/24 documented as of this encounter
[2024-09-26 07:30] VITALS: BP 194/88; PULSE 83; RESP 12; O2SAT 98
--- NOTE | 2024-09-26 07:30 | PC.NURSE ---
XR AT BEDSIDE
[2024-09-26 07:36] VITALS: BP 190/85; BP 194/88; PULSE 84; RESP 19; TEMP 36.6; O2SAT 100; O2SAT 98; BMI 29.8
--- OUTSIDE RECORDS SUMMARY | 2024-09-26 07:39 | XMS_ITS | Encounter Summary ---
[facility] Organization [facility] Address [address] [place] [address] Care Team Providers Care Rotary Adjuster Name Role Phone Solo Lema Primary Care Provider + Encounter Details Date Type Department Care Team (Latest Contact Info) Description 08/27/2024 Travel Social History Tobacco Use Types Packs/Day Years Used Date Smoking Tobacco: Former Cigarettes 1 25 1 967 - 1982 Smokeless Tobacco: Never Alcohol Use Standard Drinks/Week Comments Not Currently [...] on file documented as of this encounter Plan of Treatment Upcoming Encounters Date Type Department Care Team (Late st Contact Info) Description 04/29/2025 9:30 AM EST Office Visit [facility] [address] [id number] Ellis Chang MD [address] [facility] [address] [place] [address] documented as of this encounter Visit Diagnoses Not on filedocumented in this encounter Care Teams Rotary Adjuster Relationship Specialty Start Date End Date Solo Lema DO [address] [place] [address] [place] [id number] PCP - General Internal Medicine 08/27/24 documented as of this encounter
--- OUTSIDE RECORDS SUMMARY | 2024-09-26 07:39 | XMS_ITS | Clinical Summary ---
Author Organization [employer] ([place], [place], [place], [place]) Address [address] [place] [address] Care Team Providers Care Satellite Communications Engineer Name Role Phone Elgin Logan MD Primary Care Provider [phone] Allergies No known active allergies Medications desmopressin (DDAVP) 0.1 MG tablet Take 1 tablet by mouth 2 (two) times daily. 12/10/19 22 Active glimepiride (AMARYL) 2 MG tablet Take 1 tablet by mouth every morning before breakfast. 02/25/20 22 Active lisinopriL (PRINIVIL,ZEST RIL) 20 MG tablet Take 10 mg by mouth. 11/15/19 22 Active methadone (DOLOPHINE) 10 MG tablet Take 10 mg by mouth every 6 (six) hours. 03/10/19 23 Active naloxone (NARCAN) 4 mg/actuation [place] SMARTSIG:Both Nares 01/11/20 22 Active semaglutide (Ozempic) 0.25 mg or 0.5 mg(2 mg/1.5 mL) PnIj Inject 0.5 mg subcutaneously. 11/18/19 22 Active testosterone cypionate (DEPOTESTOTERO NE CYPIONATE) 200 mg/mL injection INJECT 1 ML INTRAMUSCULARLY EVERY 10 DAYS DIRECTED *BRING VIAL TO OFFICE FOR ADIMINISTRATION 12/27/19 22 Active Active Problems Problem Noted Date Diagnosed Date Secondary polycythemia 03/16/2022 Family History Medical History Relation Name Comments Heart failure Father Heart failure Mother Relation Name Status Comments Father Mother Social History Tobacco Use Types Packs/Day Years Used Date Smoking Tobacco: Former Smokeless Tobacco: Never Alcohol Use Standard Drinks/Week Comments Yes 0 (1 standard drink = 0.6 oz pur e alcohol) Food Insecurity Answer Date Recorded Food run out past 12 months Not on file 02/26 Food did not last past 12 months Not on file 03/11/2023 Employment Answer Date Recorded Help finding and keeping a job Not on file 0 03/11/2023 Family and Community Support Answer Tom e Recorded Help with Day to Day Activities Not on file 03/11/2023 Feeling Lonely or Isolated Not on file 03/11 Educational Attainment Answer Date Vlad rded Speak language other than Yi at home Not on file 03/11/2023 Want help with school or training Not on file 03/11/2023 Substance Use Answer Date Recorded Used prescription meds for non-medical reasons N ot on file 03/11/2023 Used illegal drugs past 12 months Not on file 03/11/2023 Sex and Gender Information Value Date Recorded Sex Assigned at Not on file Legal Sex Male 3:24 PM CDT Gender Identity Not on file Sexual Orientation Not on file Last Filed Vital Signs Vital Sign Reading Time Taken Comments Blood Pressure 150/75 03/16/2022 11:23 AM EST Pulse 65 03/16/2022 11:23 AM EST Temperature 36.8 C (98.2 F) 03/16/2022 11:23 AM EST Respiratory Rate 18 03/16/2022 11:2 3 AM EST Oxygen Saturation 98% 03/16/2022 11: 23 AM EST Inhaled Oxygen Concentration - - Weight 101.6 kg (223 lb 15.8 oz) 2022 10:55 AM EST Height 180.3 cm (5' 11 ) 03/16/2022 10: 55 AM EST Body Mass Index 31.24 03/16/2022 10:55 AM EST Plan of Treatment Health Maintenance Due Date Last Done Comments Medicare Initial AWV [id number] CT Colonography 1955 Colonoscopy 1955 Colorectal Cancer Screening 1955 FOBT/FIT 1955 Fit-DNA (Cologuard) 1955 Sigmoidoscopy 1955 Depression Screening (12+) 1966 Hepatitis C Screening 1972 DTAP/TDAP/TD VACCINES (1 - Tdap) 1973 Shingles Vaccine (Zoster) (1 of 2) 2004 Pneumococcal 50+ years (2 of 2 - PCV) 01/19/2021 01/20/2020 Tobacco Cessation Counseling and Screening (12+) 03/16/2023 03/16/2022 COVID-19 VACCINE (6 - 2023-2 5 season) 2023 01/08/2022, 06/10/2021, 12/02/2020, Additional history exists Falls Risk Screening 02/27/2024 Influenza Vaccine (#1) 2024 Respiratory Syncytial Virus (RSV) Adult or (1 - 1-dose 75+ series) 2029 Insurance [facility] [employer] MEDICARE PPO Care Teams Satellite Communications Engineer Relationship Specialty Start Date End Date Elgin Logan MD [address] [facility] [address] PCP - General Family Medicine 03/16/22
--- OUTSIDE RECORDS SUMMARY | 2024-09-26 07:39 | XMS_ITS | Encounter Summary ---
Author Organization [employer] ([place], [place], [place], [place]) Address [address] [place] [address] Care Team Providers Care Oracle Fusion Middleware Developer Name Role Phone Elgin Logan MD Primary Care Provider Encounter Details Date Type Department Care Team (Late st Contact Info) Description 04/28/2019 Transcribed Document [facility] Family Medicine [facility] [place] [address] ProviderMarilynn MD [address] [place], [place] [id number] Social History Tobacco Use Types Packs/Day Years Used Date Smoking Tobacco: Never Assessed Sex and Gender Information Value Date Recorded Sex Assigned at Not on file Legal Sex Male 3:24 PM CDT Gender Identity Not on file Sexual Orientation Not on file documented as of this encounter Miscellaneous Notes * Cerner Conversion Note - Marilynn ProviderMD - 04/28/2019 1:30 PM MERCHANDISE FLOW MANAGER Patient: ISIDRO WOMACK Age: 63 Years Sex: Male : 1955 FOLLOWUP DATE OF SERVICE: 04/24/2019 CHIEF COMPLAINT: Low back pain. HISTORY OF PRESENT ILLNESS: The patient is a 62-year-old male who returns to the clinic for followup on his low back pain that radiates to his lower extremities, greater on the left. He states he needs to discuss [employer] about visits every two months instead of three months. He rates his pain as 5/10 on the pain scale. Quality is aching, burning, radiating, numbness/tingling, dull and sharp. He takes [id number] medications but did not specify. He has had his pain for 14 years. He has increased pain with activity. He gets 60% relief with his current medication. Fall risk information sheet provided. He got his back brace we ordered at his last visit and it is helping. HISTORY: Allergies: No known drug allergies. SOCIAL HISTORY: Marital status: . Current work status: Not answered. Current tobacco use: Denies. Illicit drug use: Denies. Alcohol use: Denies. Caffeine use: Not answered. Past Medical History: Arthritis. Diabetes. High blood pressure. Past Surgical History: Shoulder. Sinus. Spinal surgery of the back. Past Family History: Lung disease. Heart disease. REVIEW OF SYSTEMS: The patient's ten system Review of Systems was reviewed. General: Negative. Respiratory: Negative. Neurological: Numbness/tingling. Gastrointestinal: Negative. Musculoskeletal: Joint pain/stiffness, neck pain, back pain, muscle aches and pains. Cardiovascular: Leg swelling, leg pain with walking. Psychiatric: Negative. HEENT: Negative. Endocrine: Negative. Hematology: Negative. Skin: Negative. Genitourinary: Negative. VITAL SIGNS: Vital signs are reviewed. BP 168/90, heart rate 63, respiratory rate 16, O2 SATs 97%, height 6'0 , weight 250 lb. PHYSICAL EXAMINATION: Constitutional: Freely conversant and in no acute distress. Integumentary: Deferred. HEENT: Deferred. Neck: Deferred. Chest and Lung: Deferred. Cardiovascular: Deferred. Abdomen: Deferred. Peripheral Vascular: Deferred Neurologic: Deferred. Neuropsychiatric: Alert and oriented x3. Normal mood and affect. He scored a 0 on his depression questionnaire. Musculoskeletal: Negative. MEDICAL DECISION MAKING: TANA is reviewed and is appropriate. Patient???s medications are reviewed. See list in patient???s file. PROCEDURE/TEST ORDERED: Not present. ASSESSMENT: Stable. 1. Chronic pain syndrome. 2. 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 3. Lumbar radiculitis to the bilateral lower extremities, left greater than right. 4. Lumbar spondylosis. 5. Lumbar degenerative disc disease. CURRENT PLAN: I have received a letter from [employer] that they were no longer going to cover his Methadone. They wanted us to wean to off and they would only see him every three months, however, until we get his Methadone weaned off we have to see him every two months as it is not our clinic rule but it is a drug enforcement agency rule that we can only give two months of a controlled substance at a time so I am going to decrease his Methadone today to 10 mg one p.o. in the morning and two at night so that is down from 4 to 3 and at his next visit we will decrease him to 2 and then to 1 and then off. He stated [employer] was still covering his Methadone but the letter we got stated it was not so I have told him to journeyman tool [employer] die [employer]'s [employer] as it was their order. If he could provide documentation that they would still cover it we would change it. He has an understanding of the plan. I am going to have him see Dr. Gonsalves at his next visit because he wanted to discuss this further. Tania Veras M.D. YANICK/quin Electronically signed by Natty [facility] Conversion [place] Dispatch Supervisor Cerner at 06/13/2022 9:12 AM CDT documented in this encounter Plan of Treatment Not on file documented as of this encounter Visit Diagnoses Not on filedocumented in this encounter Care Teams Oracle Fusion Middleware Developer Relationship Specialty Start Date End Date Elgin Logan MD [address] [place] [id number] PCP - General Family Medicine 03/16/22 documented as of this encounter
--- OUTSIDE RECORDS SUMMARY | 2024-09-26 07:39 | XMS_ITS | Encounter Summary ---
Author Organization [employer] ([place], [place], [place], [place]) Address [address] [place] [address] Care Team Providers Care Plating Tank Operator Apprentice Name Role Phone Elgin Logan MD Primary Care Provider Encounter Details Date Type Department Care Team (Late st Contact Info) Description 03/04/2019 Transcribed Document [facility] Family Medicine [facility] [place] [address] ProviderMarilynn MD [address] [place], [place] [address] Social History Tobacco Use Types Packs/Day Years Used Date Smoking Tobacco: Never Assessed Sex and Gender Information Value Date Recorded Sex Assigned at Not on file Legal Sex Male 3:24 PM CDT Gender Identity Not on file Sexual Orientation Not on file documented as of this encounter Miscellaneous Notes * Cerner Conversion Note - Historical ProviderMD - 03/04/2019 2:48 PM CARE SUPPORT REPRESENTATIVE Patient: ISIDRO WOMACK Age: 63 Years Sex: Male : 1955 FOLLOWUP DATE OF SERVICE: 02/27/2019 CHIEF COMPLAINT: Low back pain. HISTORY OF PRESENT ILLNESS: The patient is a 63-year-old male who returns to the clinic for followup on his low back pain that radiates into the lower extremities, left side is worse. He states Work[employer] will only pay for four visits per year. Two weeks ago he picked up something he should not have and he strained his back but it is gradually improving. He rates his pain as 6/10 on the pain scale. Quality is aching, radiating, numbness/tingling, dull and sharp. His pain is constant. He has had his pain for 14 years. He has increased pain with activity. He gets numbness/tingling. He has decreased pain with rest. He gets 70% relief with his current medication. Fall risk information sheet provided. HISTORY: Allergies: No known drug allergies. SOCIAL HISTORY: Marital status: . Current work status: Not answered. Current tobacco use: Denies. Illicit drug use: Denies. Alcohol use: Denies. Caffeine use: Not answered. Past Medical History: Diabetes. High blood pressure. Past Surgical History: Shoulder. Sinus. Spinal surgery of the back. Past Family History: Lung disease. Heart disease. REVIEW OF SYSTEMS: The patient's ten system Review of Systems was reviewed. General: Negative. Respiratory: Negative. Neurological: Numbness/tingling. Gastrointestinal: Negative. Musculoskeletal: Joint pain/stiffness, back pain, muscle aches and pains. Cardiovascular: Leg pain with walking. Psychiatric: Negative. HEENT: Negative. Endocrine: Negative. Hematology: Negative. Skin: Negative. Genitourinary: Negative. VITAL SIGNS: Vital signs are reviewed. BP 165/101, heart rate 70, respiratory rate 20, O2 SATs 97%, height 6'0 , weight 250 lb. PHYSICAL EXAMINATION: Constitutional: Freely conversant and in no acute distress. Integumentary: Deferred. HEENT: Deferred. Neck: Deferred. Chest and Lung: Deferred. Cardiovascular: Deferred. Abdomen: Deferred. Peripheral Vascular: Deferred Neurologic: Deferred. Neuropsychiatric: Alert and oriented x3. Normal mood and affect. He scored a 0 on his depression questionnaire that was completed today. Musculoskeletal: Negative. MEDICAL DECISION MAKING: TANA is reviewed and is appropriate. Patient???s medications are reviewed. See list in patient???s file. PROCEDURE/TEST ORDERED: The patient received a urine tox screen today. ASSESSMENT: Stable. 1. Chronic pain syndrome. 2. 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 3. Lumbar radiculitis to the bilateral lower extremities, left greater than right. 4. Lumbar spondylosis. 5. Lumbar degenerative disc disease. CURRENT PLAN: I am going to continue Mr. Womack on his current medication of Methadone 10 mg one p.o. in the morning, one p.o. at noon and two p.o. q.h.s. He denies any side-effects. As far as [employer] only agreeing to let him be seen every three months, this will not work because we can only write pain medication for two months at a time. We are going to write a letter to them explaining this to them. I though a letter had been written in the past but it may have been another [employer] patient so we will make sure they understand we can only give him two months of a controlled substance at a time so he has to be seen every two months for this. He is also interested in a back brace. He had one at one time. I am going to refer him to [facility] for a lumbar brace for pain and instability. He knows he is only to wear it when he is doing strenuous activity, otherwise, his back muscles will weaken. He is in agreement with the above plan. We will see him back in followup in two months. Tania Veras M.D. YANICK/quin documented in this encounter Plan of Treatment Not on file documented as of this encounter Visit Diagnoses Not on filedocumented in this encounter Care Teams Plating Tank Operator Apprentice Relationship Specialty Start Date End Date Elgin Logan MD [address] [facility] [place] [address] PCP - General Family Medicine 03/16/22 documented as of this encounter
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
--- OUTSIDE RECORDS SUMMARY | 2024-09-26 07:40 | XMS_ITS | Encounter Summary ---
Author Organization [employer] ([place], [place], [place], [place]) Address [address] [place] [address] Care Team Providers Care Bankman Name Role Phone Elgin Logan MD Primary Care Provider [phone] Encounter Details Date Type Department Care Team (Late st Contact Info) Description 10/29/2019 Transcribed Document [facility] Family Medicine [facility] [place] [address] ProviderMarilynn MD [address] [place], [place] [id number] Social History Tobacco Use Types Packs/Day Years Used Date Smoking Tobacco: Never Assessed Sex and Gender Information Value Date Recorded Sex Assigned at Not on file Legal Sex Male 3:24 PM CDT Gender Identity Not on file Sexual Orientation Not on file documented as of this encounter Miscellaneous Notes * Cerner Conversion Note - Marilynn ProviderMD - 10/29/2019 2:30 PM CDT Patient: ISIDRO WOMACK Age: 64 Years Sex: Male : 1955 FOLLOW-UP DATE OF SERVICE: 10/17/2019. CHIEF COMPLAINT: Low back pain and leg pain. HISTORY OF PRESENT ILLNESS: The patient is a 64-year-old male who returns to the clinic today with a 15-year history significant for low back pain and bilateral leg pain being equal in severity. The patient states that his pain is a 5/10 on the numerical pain scale rating. He has been reporting that the pain is getting worse with standing and walking for long durations of time; also when he is working aggravates his pain. He does get some relief with resting as well as medication use from our facility. The patient describes getting 60% pain relief at this time with the use of Methadone 10 mg that the patient takes one pill four times daily dosing. Nursing intake was reviewed on today's visit. HISTORY: Allergies: No known drug allergies. Social History: Marital status: . Current work status: Not listed. Current tobacco use: Denies. Illicit drug use: Denies. Alcohol use: Denies. Caffeine use: Not reported. Past Medical History: Osteoarthritis. Type 2 diabetes. Hypertension. Past Surgical History: Arthroscopic shoulder surgery. Sinus surgery. Spinal surgery of the lumbar spine. Past Family History: Lung disease. Heart disease. REVIEW OF SYSTEMS: The patient's ten system Review of Systems was reviewed and at today's visit this individual has complaints of the following: General: Negative. Respiratory: Negative. Neurological: Numbness/tingling. Gastrointestinal: Constipation. Musculoskeletal: Joint pain/stiffness, back pain, muscle weakness, muscle aches and pains. Cardiovascular: Leg pain with walking. Psychiatric: Negative. HEENT: Negative. Endocrine: Increased urination. Hematology: Negative. Skin: Negative. Genitourinary: Negative. PHYSICAL EXAMINATION: Constitutional: Conversant and well-nourished. Vital signs reviewed today. Integumentary: Deferred. HEENT: Deferred. Neck: Deferred. Chest and Lung: Deferred. Cardiovascular: Deferred. Abdomen: Deferred. Peripheral Vascular: Deferred. Neurologic: Deferred. Psychiatric: The patient is alert and oriented to self, time, and place today. The patient has a normal mood and affect at today's visit and there is no evidence of depression on the depression questionnaire that was completed today. Musculoskeletal: Deferred. ASSESSMENT: 1. Chronic pain syndrome. 2. Lumbar degenerative disc disease. 3. Lumbar spondylosis. 4. Lumbar radiculitis involving the bilateral lower extremities with the left being worse than the right. CURRENT PLAN: I am going to continue this individual on his current medication regimen from our facility at this time. TANA report was appropriate upon review today. We did review the patient's EKG that was done on October 16, 2019. His QT corrected interval appears to be in an appropriate range. We will see the patient back in clinic in two months for a follow-up appointment. He is undergoing a urine tox screen today to confirm compliance with medication management from our facility. GRANT Ratliff/cristino Electronically signed by Natty [facility] Conversion Die Maker Cerner at 06/13/2022 8:50 AM CDT documented in this encounter Plan of Treatment Not on file documented as of this encounter Visit Diagnoses Not on filedocumented in this encounter Care Teams Bankman Relationship Specialty Start Date End Date Elgin Logan MD [address] [place] [id number] PCP - General Family Medicine 03/16/22 documented as of this encounter
--- OUTSIDE RECORDS SUMMARY | 2024-09-26 07:40 | XMS_ITS | Encounter Summary ---
Author Organization [employer] ([place], [place], [place], [place]) Address [address] [place] [address] Care Team Providers Care Director Sales Support Name Role Phone Elgin Logan MD Primary Care Provider Encounter Details Date Type Department Care Team (Late st Contact Info) Description 11/05/2018 Transcribed Document [facility] [place] Family Medicine [facility] [place] [address] ProviderMarilynn MD [address] [place], [place] [id number] Social History Tobacco Use Types Packs/Day Years Used Date Smoking Tobacco: Never Assessed Sex and Gender Information Value Date Recorded Sex Assigned at Not on file Legal Sex Male 3:24 PM CDT Gender Identity Not on file Sexual Orientation Not on file documented as of this encounter Miscellaneous Notes * Cerner Conversion Note - Marilynn ProviderMD - 11/05/2018 3:35 PM CDT Patient: ISIDRO WOMACK Age: 63 Years Sex: Male : 1955 FOLLOWUP DATE OF SERVICE: 11/01/2018 CHIEF COMPLAINT: Low back pain. HISTORY OF PRESENT ILLNESS: The patient is a 63-year-old male who returns to the clinic for followup on his low back pain. He rates his pain as 5/10 on the pain scale. Quality is aching, burning, numbness/tingling and dull. His pain is constant. He has had his pain since 2004. He has increased pain with any activity and bending and decreased pain with medication, lying down in his chair. He gets 70% relief with his current medication. Fall risk information sheet has been provided. HISTORY: Allergies: No known drug allergies. SOCIAL HISTORY: Marital status: . Current work status: Not answered. Current tobacco use: Denies. Illicit drug use: Denies. Alcohol use: Denies. Caffeine use: He drinks caffeine. Past Medical History: Arthritis. Diabetes. High blood pressure. Past Surgical History: Shoulder. Sinus. Spinal surgery of the back. Past Family History: Lung disease. Heart disease. REVIEW OF SYSTEMS: The patient's ten system Review of Systems was reviewed. General: Negative. Respiratory: Negative. Neurological: Numbness/tingling. Gastrointestinal: Negative. Musculoskeletal: Joint pain/stiffness, back pain, muscle weakness, muscle aches and pain. Cardiovascular: Leg pain with walking. Psychiatric: Negative. HEENT: Negative. Endocrine: Negative. Hematology: Negative. Skin: Negative. Genitourinary: Negative. VITAL SIGNS: Vital signs are reviewed. BP 183/100, heart rate 56, respiratory rate 20, O2 SATs 99%, height 6'0 , weight 235 lb. PHYSICAL EXAMINATION: Constitutional: Freely conversant and in no acute distress. Integumentary: Deferred. HEENT: Deferred. Neck: Deferred. Chest and Lung: Deferred. Cardiovascular: Deferred. Abdomen: Deferred. Peripheral Vascular: Deferred Neurologic: Deferred. Neuropsychiatric: Alert and oriented x3. Normal mood and affect. Musculoskeletal: Negative. DIAGNOSTIC STUDIES: Not present. MEDICAL DECISION MAKING: TANA is reviewed and is appropriate. Patient???s medications are reviewed. See list in patient???s file. ASSESSMENT: Stable. 1. Chronic pain secondary to lumbar spondylosis. 2. Lumbar radiculitis, L5-S1 distribution, bilateral lower extremities, right greater than left. 3. Postlaminectomy pain syndrome of lumbar spine. 4. Lumbar degenerative disc disease. PROCEDURE/TEST ORDERED: Not present. CURRENT PLAN: We will continue Mr. Womack on his current medication of Methadone 10 mg one p.o. in the morning, one p.o. at noon, two p.o. q.h.s. He is in agreement with the above plan. We will see him back in followup in two months. Tania Veras M.D. YANICK/quin Electronically signed by Natty, [facility] Conversion Glove Turner Cerner at 06/13/2022 8:50 AM CDT documented in this encounter Plan of Treatment Not on file documented as of this encounter Visit Diagnoses Not on filedocumented in this encounter Care Teams Director Sales Support Relationship Specialty Start Date End Date Elgin Logan MD [address] [address] PCP - General Family Medicine 03/16/22 documented as of this encounter
--- OUTSIDE RECORDS SUMMARY | 2024-09-26 07:40 | XMS_ITS | Encounter Summary ---
Author Organization [employer] ([place], [place], [place], [place]) Address [address] [place] [address] Care Team Providers Care Rolls Baker Name Role Phone Elgin Logan MD Primary Care Provider Encounter Details Date Type Department Care Team (Late st Contact Info) Description 03/05/2020 Transcribed Document [facility] [place] Family Medicine [facility] [place] [address] ProviderMarilynn MD [address] [place], [place] [id number] Social History Tobacco Use Types Packs/Day Years Used Date Smoking Tobacco: Never Assessed Sex and Gender Information Value Date Recorded Sex Assigned at Not on file Legal Sex Male 3:24 PM CDT Gender Identity Not on file Sexual Orientation Not on file documented as of this encounter Miscellaneous Notes * Cerner Conversion Note - Historical ProviderMD - 03/05/2020 3:30 PM ABALONE DIVER Patient: ISIDRO WOMACK Age: 64 Years Sex: Male : 1955 FOLLOWUP DATE OF SERVICE: 02/12/2020 CHIEF COMPLAINT: Low back pain, bilateral leg pain. HISTORY OF PRESENT ILLNESS: The patient is a 64-year-old male who returns to the clinic today with a history significant for back pain as well as bilateral leg pain, the left leg being worse than the right leg. He reports having this pain since 2004, secondary to a work-related injury. He continues to be under the umbrella of Workers Compensation. He had recently seen an administrative low environmental department manager who had decided to discontinue his Voltaren Gel as well as having the patient return to the clinic every three months. He tried to explain to the environmental department manager about our current requirements to come back to the clinic every two months for medication refills and reevaluation. He is now having to pay out of pocket for the other visits. He describes his pain level today as 4/10 on the numerical pain scale rating. His pain is worse in the left leg than the right leg. Bending at the waist, walking long distances, lifting and twisting at the waist aggravate his pain. He does get relief with recumbency as well as medication use from our facility. He is reporting 75% pain relief at this time with the use of Methadone 10 mg four times daily dosing. Nursing intake is reviewed and noted on today's visit this individual has a BP 190/92 (repeat was 184/92), heart rate 66, respiratory rate 16, O2 SATs 97% on room air, height 6'0 , weight 235 lb. HISTORY: Allergies: None reported. Social History: Marital status: . Current work status: He does not have an occupation listed at this time. Current tobacco use: Denies. Illicit drug use: Denies. Alcohol use: Denies. Caffeine use: Not reported. Past Medical History: Osteoarthritis. Type 2 diabetes. Hypertension. Past Surgical History: Arthroscopic shoulder surgery. Sinus surgery. Spinal surgery of the lumbar spine. Past Family History: Lung disease. Heart disease. REVIEW OF SYSTEMS: The patient's ten system Review of Systems was reviewed and on today's visit this individual has complaints of the following: General: Negative. Respiratory: Negative. Neurological: Negative. Gastrointestinal: Negative. Musculoskeletal: Joint pain/stiffness, back pain, muscle aches and pains. Cardiovascular: Leg pain with walking. Psychiatric: Negative. HEENT: Negative. Endocrine: Negative. Hematology: Negative. Skin: Negative. Genitourinary: Negative. PHYSICAL EXAMINATION: Constitutional: Conversant and well-nourished. Vital signs were reviewed today. Integumentary: Deferred. HEENT: Deferred. Neck: Deferred. Chest and Lung: Deferred. Cardiovascular: Deferred. Abdomen: Deferred. Peripheral Vascular: Deferred. Neurologic: Deferred. Psychiatric: The patient is alert and oriented to self, time and place today. The patient has a normal mood and affect at today's visit and there is no evidence of depression on the depression questionnaire that was completed today. Musculoskeletal: Deferred. ASSESSMENT: 1. Chronic pain syndrome. 2. Lumbar degenerative disc disease. 3. Lumbar spondylosis. 4. Lumbar radiculitis involving the bilateral lower extremities, the left worse than the right. CURRENT PLAN: I am going to continue Mr. Womack on his current medication regimen from our facility at this time. His TANA report was appropriate upon review today. The patient's Morphine Sulfate equivalency remains at 120 mg per day. We will see the patient back in the clinic in two months for a followup appointment. GRANT Ratliff/quin Electronically signed by Manuel Luz Conversion Food [employer] Drug Research Scientist Cerner at 06/13/2022 9:09 AM CDT documented in this encounter Plan of Treatment Not on file documented as of this encounter Visit Diagnoses Not on filedocumented in this encounter Care Teams Rolls Baker Relationship Specialty Start Date End Date Elgin Logan MD [address] [place] [id number] PCP - General Family Medicine 03/16/22 documented as of this encounter
--- OUTSIDE RECORDS SUMMARY | 2024-09-26 07:40 | XMS_ITS | Encounter Summary ---
[facility] Address [address] [place] [address] Care Team Providers Care Case Technician Name Role Phone Wyatt Lemaew Ernie BENTLEY Primary Care Provider + Encounter Details Date Type Department Care Team (Late st Contact Info) Description 09/01/2024 Telephone [facility] ENDOCR[facility]OLOGY [address] [phone] Ellis Chang MD [address] [address] Social History Tobacco Use Types Packs/Day Years Used Date Smoking Tobacco: Former Cigarettes 1 25 1 967 - 1981 Smokeless Tobacco: Never Alcohol Use Standard Drinks/Week [...] as of this encounter Miscellaneous Notes * Telephone Encounter - Lyndsay Sinclair RegSched Rep - 09/01/2024 12:54 PM EDT The [facility] received a fax that requires your attention. The document has been indexed to the patient???s chart for your review. Reason for sending: MEDICAL RECORDS REQUESTED Documents Description: LABS 07-25-2024 AND 07-29-2024 Name of Sender: ROVERTO HUTCHINSON [facility] [address] [facility] [place] [address] PHONE [phone] FAX [phone] Date Indexed: 09-01-2024 Notes (if needed): INDEXED UNDER LABS. documented in this encounter Plan of Treatment Upcoming Encounters Date Type Department Care Team (Late st Contact Info) Description 04/29/2025 9:30 AM EST Office Visit [facility] ENDOCR[facility]OLOGY [address] [phone] Ellis Chang MD [address] [id number] documented as of this encounter Visit Diagnoses Not on filedocumented in this encounter Care Teams Case Technician Relationship Specialty Start Date End Date Solo Lema DO [address] [place] [address] [facility] [id number] PCP - General Internal Medicine 08/27/24 documented as of this encounter
--- OUTSIDE RECORDS SUMMARY | 2024-09-26 07:40 | XMS_ITS | Referral Summary ---
Author Organization [employer] ([place], [place], [place], [place]) Address [address] [place] [address] Care Team Providers Care Machining Manager Name Role Phone Elgin Logan MD Primary Care Provider [phone] Allergies No known active allergies Medications desmopressin [...] 03/10/19 23 Active naloxone (NARCAN) 4 mg/actuation [place]ona SMARTSIG:Both Nares 01/11/20 22 Active semaglutide (Ozempic) 0.25 mg or 0.5 mg(2 mg/1.5 mL) PnIj Inject 0.5 mg subcutaneously. 11/18/19 22 Active testosterone cypionate (DEPOTESTOTERO NE CYPIONATE) 200 mg/mL injection INJECT 1 ML INTRAMUSCULARLY EVERY 10 DAYS DIRECTED *BRING VIAL TO OFFICE FOR ADIMINISTRATION 12/27/19 22 Active Active Problems Problem Noted Date Diagnosed Date Secondary polycythemia 03/16/2022 Social History Tobacco Use Types Packs/Day Years [...] Date Vlad rded Speak language other than Moldovan at home Not on file 03/11/2023 Want [...] 03/16/2022 10:55 AM EST Plan of Treatment Not on file Insurance [employer] P[employer] Care Teams Machining Manager Relationship Specialty Start Date End Date Elgin Logan MD [address] [place] [id number] PCP - General Family Medicine 03/16/22
--- OUTSIDE RECORDS SUMMARY | 2024-09-26 07:40 | XMS_ITS | Encounter Summary ---
Author Organization [employer] ([place], [place], [place], [place]) Address [address] [place] [address] Care Team Providers Care Drum Plater Name Role Phone Elgin Logan MD Primary Care Provider Encounter Details Date Type Department Care Team (Late st Contact Info) Description 09/03/2019 Transcribed Document [facility] [place] Family Medicine [facility] [place] [address] ProviderMarilynn MD [address] [place], [place] [address] Social History Tobacco Use Types Packs/Day Years Used Date Smoking Tobacco: Never Assessed Sex and Gender Information Value Date Recorded Sex Assigned at Not on file Legal Sex Male 3:24 PM CDT Gender Identity Not on file Sexual Orientation Not on file documented as of this encounter Miscellaneous Notes * [employer]ner Conversion Note - Marilynn ProviderMD - 09/03/2019 9:40 AM CDT Patient: ISIDRO WOMACK Age: 64 Years Sex: Male : 1955 FOLLOW-UP DATE OF SERVICE: 08/15/2019. CHIEF COMPLAINT: Low back pain, bilateral leg pain, left leg worse than the right leg. HISTORY OF PRESENT ILLNESS: The patient is a 64-year-old male who returns to the clinic today with a 14-year history significant for both low back pain and bilateral leg pain. Patient states that the pain is worse with bending at the waist and lifting. The patient does get relief with relaxation, sitting for long durations of time, or even laying for short duration of time will improve this individual's overall pain. He describes having some mild opioid-induced constipation. At this time he has been utilizing primarily dietary changes to improve his constipation. He describes his pain level today as 5/10 on the numerical pain scale rating. He is reporting 70% reduction of the pain with the use of Methadone 10 mg four times daily dosing. Nursing intake was reviewed and on today's visit this individual has a blood pressure 160/81, heart rate 58, respiratory rate 16, O2 SATs 98% on room air, height 6'1 , weight 235 lbs. HISTORY: Allergies: Penicillin. Social History: Marital status: . Current work status: Disabled. Current tobacco use: Denies. Illicit drug use: Denies. Alcohol use: Denies. Caffeine use: Daily. Past Medical History: Osteoarthritis. Type 2 diabetes. Hypertension. Past Surgical History: Arthroscopic shoulder surgery. Sinus surgery. Spinal surgery of the lumbar spine. Past Family History: Lung disease. Heart disease. REVIEW OF SYSTEMS: The patient's ten system Review of Systems was reviewed and at today's visit this individual has complaints of the following: General: Negative. Respiratory: Negative. Neurological: Numbness/tingling. Gastrointestinal: Negative. Musculoskeletal: Back pain, muscle aches and pains. Cardiovascular: Leg [...] affect at today's visit and there is mild depression on the depression questionnaire that was completed today. Musculoskeletal: Deferred. ASSESSMENT: 1. Chronic pain syndrome. 2. Lumbar degenerative disc disease. 3. Lumbar spondylosis. 4. Lumbar radiculitis involving the bilateral lower extremities with the left worse than the right. CURRENT PLAN: I am going to maintain Mr. Womack on his current medication regiment from our facility at this time. He is still contemplating the spinal cord stimulator that was discussed at his last visit with Dr. Gonsalves. He is also going to receive orders for an EKG to monitor QT prolongation with chronic methadone use. We are going to see the patient back in clinic in two months for a follow-up appointment. GRANT Ratliff/cristino Electronically signed by [facility] Conversion Legal Project Manager Cerner at 06/13/2022 9:02 AM CDT documented in this encounter Plan of Treatment Not on file documented as of this encounter Visit Diagnoses Not on filedocumented in this encounter Care Teams Drum Plater Relationship Specialty Start Date End Date Elgin Logan MD [address] [place] [address] PCP - General Family Medicine 03/16/22 documented as of this encounter
--- OUTSIDE RECORDS SUMMARY | 2024-09-26 07:40 | XMS_ITS | Encounter Summary ---
Author Organization [employer] ([place], [place], [place], [place]) Address [address] [place] [address] Care Team Providers Care Category Development Analyst Name Role Phone Elgin Logan MD Primary Care Provider Encounter Details Date Type Department Care Team (Late st Contact Info) Description 12/26/2018 Transcribed Document [facility] [place] Family Medicine [facility] [place] [address] ProviderMarilynn MD [address] [place], [place] [address] Social History Tobacco Use Types Packs/Day Years Used Date Smoking Tobacco: Never Assessed Sex and Gender Information Value Date Recorded Sex Assigned at Not on file Legal Sex Male 3:24 PM CDT Gender Identity Not on file Sexual Orientation Not on file documented as of this encounter Miscellaneous Notes * Cerner Conversion Note - Marilynn Tapia MD - 12/26/2018 10:09 AM CDT Patient: ISIDRO WOMACK Age: 63 Years Sex: Male : 1955 FOLLOWUP DATE OF SERVICE: 12/25/2018 CHIEF COMPLAINT: Left-sided low back pain. HISTORY OF PRESENT ILLNESS: The patient is a 63-year-old male who returns to the clinic today with a 14-year history significant for a work-related injury under Worker's Compensation. He has had low back pain with radiation into the left lower extremity. He is also complaining of pain in the anterior thigh involving the left leg. His pain is worse with activities around the home. He does get some relief with medication use and recumbency. His worse pain provoker at this time is lifting his leg to get in and out of the car. He describes his pain level today as 6/10 on the numerical pain scale rating. He is reporting 60% pain relief with Methadone 10 mg twice daily dosing and two at bedtime. Nursing intake is reviewed and on today's visit this individual has a BP 139/81, heart rate 61, respiratory rate 16, O2 SATs 97% on room air, height 6'0 , weight 275 lb. HISTORY: Allergies: Penicillin. SOCIAL HISTORY: Marital status: . Current work status: The patient does not list occupation at this time. Current tobacco use: Denies. [...] Deferred. Peripheral Vascular: Deferred Neurologic: Deferred. Neuropsychiatric: The patient is alert and oriented to self, time and place today. The patient has a normal mood and affect at today's visit and there is no evidence of depression on the depression questionnaire that was completed today. Musculoskeletal: Deferred. DIAGNOSTIC STUDIES: Not present. ASSESSMENT: 1. Chronic pain syndrome. 2. 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 3. Lumbar radiculitis involving the bilateral lower extremities with the left being worse than the right side. 4. Lumbar spondylosis. 5. Lumbar degenerative disc disease. PROCEDURE/TEST ORDERED: Not present. CURRENT PLAN: I am going to continue Mr. Womack on his current medication regiment from our facility at this time. His TANA report was appropriate upon review today. I did review the EKG done 08/26/2018 which indicated his QTc interval was at 344 microseconds. We will see him back in the clinic in two months for a followup appointment. GRANT Ratliff/quin Electronically signed by [facility] Conversion Commission Broker Cerner at 06/13/2022 8:54 AM CDT documented in this encounter Plan of Treatment Not on file documented as of this encounter Visit Diagnoses Not on filedocumented in this encounter Care Teams Category Development Analyst Relationship Specialty Start Date End Date Elgin Logan MD [address] [place] [id number] PCP - General Family Medicine 03/16/22 documented as of this encounter
--- OUTSIDE RECORDS SUMMARY | 2024-09-26 07:40 | XMS_ITS | Encounter Summary ---
Author Organization [employer] ([place], [place], [place], [place]) Address [address] [place] [address] Care Team Providers Care Oil Rig Driller Name Role Phone Elgin Logan MD Primary Care Provider Encounter Details Date Type Department Care Team (Late st Contact Info) Description 01/04/2020 Transcribed Document [facility] [place] [facility] [place] [address] ProviderMarilynn MD [address] [place], [place] [address] Social History Tobacco Use Types Packs/Day Years Used Date Smoking Tobacco: Never Assessed Sex and Gender Information Value Date Recorded Sex Assigned at Not on file Legal Sex Male 3:24 PM CDT Gender Identity Not on file Sexual Orientation Not on file documented as of this encounter Miscellaneous Notes * [employer]ner Conversion Note - Marilynn ProviderMD - 01/04/2020 11:27 AM HEART SPECIALIST Patient: ISIDRO WOMACK Age: 64 Years Sex: Male : 1955 FOLLOW-UP DATE OF SERVICE: 12/17/2019. CHIEF COMPLAINT: Low back pain. HISTORY OF PRESENT ILLNESS: The patient is a 64-year-old male who returns to the clinic for follow-up on his low back pain that goes to his bilateral hips and bilateral lower extremities with numbness and tingling that he has had since 2004. He rates his pain as 5/10 on the pain scale. Quality is aching, burning, radiating, numbness, tingling, dull, and sharp. The pain is occasional. He gets 60-70% relief with his current medication. Pain is increased with all activity; decreased with rest. Fall risk information sheet provided. HISTORY: Allergies: No known drug allergies. Social History: Marital status: . Current work status: Not answered. Current tobacco use: Denies. Illicit drug use: Denies. Alcohol use: Denies. Caffeine use: Not answered. Past Medical History: Arthritis. Diabetes. High blood pressure. Past Surgical History: Shoulder. Sinus. Spinal surgery of the back. Past Family History: Lung disease. Diabetes. Heart disease. REVIEW OF SYSTEMS: The patient's ten system Review of Systems was performed. General: Negative. Respiratory: Negative. Neurological: Negative. Gastrointestinal: Negative. Musculoskeletal: Joint pain/stiffness, back pain, muscle aches and pain. Cardiovascular: Leg swelling, leg pain with walking. Psychiatric: Negative. HEENT: Negative. Endocrine: Negative. Hematology: Negative. Skin: Negative. Genitourinary: Negative. VITAL SIGNS: Vital signs are reviewed. Blood pressure 155/88, heart rate 62, respiratory rate 16, O2 SATs 97%, height 6'0 , weight 235 lbs. PHYSICAL EXAMINATION: Constitutional: Freely conversant and in no acute distress. Integumentary: Deferred. HEENT: Deferred. Neck: Deferred. Chest and Lung: Deferred. Cardiovascular: Deferred. Abdomen: Deferred. Peripheral Vascular: Deferred Neurologic: Deferred. Neuropsychiatric: Alert and oriented x 3. Normal mood and affect. The patient scored a 0 on the depression questionnaire. Musculoskeletal: Negative. Established patient exam is deferred. MEDICAL DECISION MAKING: Patient's TANA is reviewed and patient's tox screen from 10/16 is reviewed and both are appropriate. Patient???s medications are reviewed, see list in patient???s file. ASSESSMENT: Stable. 1. Chronic pain syndrome. 2. Lumbar degenerative disc disease. 3. Lumbar spondylosis. 4. Lumbar radiculitis bilateral lower extremity, left greater than right. CURRENT PLAN: We will continue Mr. Womack on his current medication of Methadone 10 mg every 6 hours. He denies any side effects. He is in agreement with the above plan. We will see him back in follow-up in two months. Tania Veras M.D. YANICK/ac Electronically signed by [facility], [facility] Conversion Vehicle Upholsterer Cerner at 06/13/2022 8:46 AM CDT documented in this encounter Plan of Treatment Not on file documented as of this encounter Visit Diagnoses Not on filedocumented in this encounter Care Teams Oil Rig Driller Relationship Specialty Start Date End Date Elgin Logan MD [address] [address] PCP - General Family Medicine 03/16/22 documented as of this encounter
--- OUTSIDE RECORDS SUMMARY | 2024-09-26 07:40 | XMS_ITS | Encounter Summary ---
Author Organization [employer] ([place], [place], [place], [place]) Address [address] [place] [address] Care Team Providers Care Soil Conservation Aide Name Role Phone Elgin Logan MD Primary Care Provider Encounter Details Date Type Department Care Team (Late st Contact Info) Description 05/17/2020 Transcribed Document [facility] [place] Family Medicine [facility] [place] [address] ProviderMarilynn MD [address] [place], [place] [address] Social History Tobacco Use Types Packs/Day Years Used Date Smoking Tobacco: Never Assessed Sex and Gender Information Value Date Recorded Sex Assigned at Not on file Legal Sex Male 3:24 PM CDT Gender Identity Not on file Sexual Orientation Not on file documented as of this encounter Miscellaneous Notes * Cerner Conversion Note - Historical ProviderMD - 05/17/2020 1:38 PM CDT Patient: ISIDRO WOMACK Age: 64 Years Sex: Male : 1955 FOLLOW-UP DATE OF SERVICE: 04/26/2020 CHIEF COMPLAINT: Low back pain and leg pain. HISTORY OF PRESENT ILLNESS: The patient is a 64 y/o male who returns to the clinic for follow-up on his back pain which radiates to his bilateral hips and down his legs to his knees that he has had since 2004. He rates the pain as 5/10 on the pain scale. Quality is aching, radiating, numbness, tingling, dull, sharp and constant. He has increased pain with any activity and decreased pain with medication, sitting or lying. He gets 60-70% relief with his current medication of Methadone 10 mg q 6 h. He denies any side effects. Fall risk info sheet has been provided. SOCIAL HISTORY: Allergies: No known drug allergies. Marital status: The patient is Current work status: Not answered. Illicit drug use: Denies. Alcohol use: Denies. Current tobacco use: Denies Caffeine use: Not answered. Past Medical History: Arthritis Diabetes Past Surgical History: Sinus Spinal surgery of back Past Family History: Lung disease Diabetes Heart disease REVIEW OF SYSTEMS: Complete ten system review was performed and noted to be positive for the following: General: Negative Respiratory: Negative Neurological: Numbness and tingling Gastrointestinal: Negative Musculoskeletal: Joint pain, stiffness, back pain, muscle weakness, muscle aches and pains. Cardiovascular: Negative Psychiatric: Negative HEENT: Negative Endocrine: Negative Hematology: Negative VITAL SIGNS: Vital signs are reviewed. BP 164/77, heart rate 74, respiratory rate 16, O2 SATs 98%, height 6???0?? , weight 235 lbs PHYSICAL EXAMINATION: Constitutional: The patient is freely conversant, no acute distress. Integumentary: Deferred. HEENT: Deferred. Neck: Deferred. Chest and Lung: Deferred. Cardiovascular: Deferred. Abdomen: Deferred. Peripheral Vascular: Deferred Neurologic: Deferred. Psychiatric: Alert and oriented x 3 with normal mood and affect. He scored a 0 on the depression questionnaire. Musculoskeletal: Deferred. Established patient exam is deferred. DIAGNOSTIC STUDIES: Not present MEDICAL DECISION MAKING: The patient's TANA has been reviewed and is appropriate. Patient's medications are reviewed and are listed in the patient's file. The patient received a urine tox screen today. ASSESSMENT: Stable. 1. Chronic pain syndrome. 2. Lumbar degenerative disc disease. 3. Lumbar spondylosis. 4. Lumbar radiculitis bilateral lower extremities left greater than right. PROCEDURE/TEST ORDERED: Not present. CURRENT PLAN: I am going to continue Mr. Womack in his current medications. He is in agreement with the above plan. We will see him back in follow-up in two months. Tania Veras M.D. EDI/merari documented in this encounter Plan of Treatment Not on file documented as of this encounter Visit Diagnoses Not on filedocumented in this encounter Care Teams Soil Conservation Aide Relationship Specialty Start Date End Date Elgin Logan MD [address] [place] [address] PCP - General Family Medicine 03/16/22 documented as of this encounter
--- OUTSIDE RECORDS SUMMARY | 2024-09-26 07:40 | XMS_ITS | Clinical Summary ---
Author Organization [facility] Address [address] [place] [address] Care Team Providers Care Four Roll Calender Operator Name Role Phone Solo Lema Ernie Primary Care Provider + Allergies Active Allergy Reactions Criticality Noted Date Comments Azithromycin Rash Low 05/24/2015 02/02/2014 Glimepiride Shortness Of Breath High 05/23/2022 Empagliflozin GI Intolerance 08/20/2017 Metformin GI Intolerance 05/23/2022 Semaglutide(0.25 Or 0.5mg-Dos) GI Intolerance 0 05/23/2022 Penicillins 05/24/2015 Sitagliptin Shortness Of Breath High 05/24/2015 Medications methadone (DOLOPHINE) 10 MG tablet Take 2 tablets by mouth Every 8 (Eight) Hours, 07/19/19 13 Active glucose blood test strip Check sugars daily and as needed. 50 each 5 11/17/19 17 Active Blood Glucose Monitoring Suppl (TRUE METRIX METER) w/Device kit 11/23/19 17 Active Testosterone Cypionate (DEPOTESTOTERO NE CYPIONATE) 200 MG/ML injectionIndic ations:Hypogon adism in male INJECT 1 ML INTRAMUSCULARLY EVERY 10 DAYS DIRECTED *BRING VIAL TO OFFICE FOR ADMINISTRATION 3 mL 2 09/12/19 23 Active Insulin Pen Needle (Pen [place]) 32G X 4 MM misc 1 each Daily. 100 each 3 09/13/19 23 Active desmopressin (DDAVP) 0.1 MG tabletIndicati ons:Diabetes insipidus TAKE 1 TABLET BY MOUTH TWICE A DAY 180 tablet 1 08/24/19 24 Active Continuous Glucose Sensor (Dexcom G7 Sensor) [facility] Use 1 each Every 10 (Ten) Days. Dexcom G7 shares with clinic Active ketoconazole (NIZORAL) 2 % shampoo Apply topically to the appropriate area as directed 1 (One) Time Per Week. 08/14/19 25 Active hydrocortisone 2.5 % ointment Apply 1 Application topically to the appropriate area as directed As Needed. 08/14/19 25 Active Active Problems Problem Noted Date Diagnosed Date BPH with urinary obstruction 06/24/2021 Tubular adenoma of colon 02/24/2016 Overview (02/24/2016): Colonoscopy 02/07/2016. Repeat 2020. Arthralgia of multiple joints 10/07/2015 Diabetes insipidus 10/07/2015 Assessment & Plan (09/12/2022 12:17 PM EDT): Continue ddAVP. Plan to check CMP next visit. Assessment & Plan (01/09/2017 9:23 AM EST): Stable. Continue desmopressin. Check labs. Assessment & Plan (03/27/2016 9:13 AM EST): Continue does not present. Definite can tell the difference with this medication. Check labs today including sodium and glucose. Impotence of organic origin 10/07/2015 Mixed hyperlipidemia 10/07/2015 Assessment & Plan (08/27/2024 12:07 PM EDT): Trying to get recent labs from his PCP. Assessment & Plan (09/12/2022 12:19 PM EDT): Last lipids were not too bad. Assessment & Plan (06/07/2022 8:28 AM EDT): Recent LDL and trigs above goal. This should improve with better DM control, Assessment & Plan (01/09/2017 9:23 AM EST): Continue diet changes. Check labs. Further plan after labs reviewed. Assessment & Plan (03/27/2016 9:13 AM EST): Last triglyceride level was good. We will recheck lipid panel today. Essential hypertension 10/07/2015 Assessment & Plan (08/27/2024 12:08 PM EDT): BP elevated today. He reports having some lower BP at home and stopped the lisinopril. We discussed taking 1/2 tablet of lisinopril. Assessment & Plan (09/12/2022 12:15 PM EDT): Hypertension is improving with treatment. Continue current treatment regimen. Blood pressure will be reassessed at the next regular appointment. Assessment & Plan (06/07/2022 8:29 AM EDT): Hypertension is fluctuating.. Continue current treatment regimen. Monitor BP at home. Blood pressure will be reassessed at the next regular appointment. Assessment & Plan (01/09/2017 9:24 AM EST): Hypertension is improving with treatment. Continue current treatment regimen. Continue current medications. Blood pressure will be reassessed at the next regular appointment. Assessment & Plan (03/27/2016 9:14 AM EST): Hypertension is improving with treatment. Continue current treatment regimen. Continue current medications. Blood pressure will be reassessed at the next regular appointment. Hypogonadism in male 10/07/2015 Assessment & Plan (09/12/2022 12:19 PM EDT): He reports his PCP has been monitoring the testo and monitoring his levels. Assessment & Plan (06/07/2022 8:41 AM EDT): He is getting IM T injections at home. Taking 200mg q 10 days. Last injection was 2 days ago. Has had issues with polycythemia though. Assessment & Plan (01/09/2017 9:24 AM EST): Continue injections. Recheck level today. Assessment & Plan (03/27/2016 9:13 AM EST): Recheck level today. Last PSA 5 months ago was good. Tolerating well. Feels better with the injection although not completely well. Difficult because of history of increased red blood cell count and difficult to increase dose of testosterone because of that. Continue to follow. Type 2 diabetes mellitus wit h hyperglycemia, with long-term current use of insulin 10/07/2015 Assessment & Plan (08/27/2024 12:12 PM EDT): Diabetes is improving with treatment. He has been getting ozempic samples and doing well - tolerating it okay, losing weight and better glucose levels. We discussed treatment options. He is doing okay on ozempic. Will see if we can get this through PAP. Diabetes will be reassessed in 6 months. DexBrand [place] G7 CGM was downloaded today. Data was reviewed from 08/14/24 to 08/27/24. This showed fairly good glucose control with mild postprandial spikes. Time in range was 79%. Encouraged him to continue ozempic treatment. Assessment & Plan (09/12/2022 12:21 PM EDT): Diabetes is improving with lifestyle modifications. He hasn't tolerated DM meds. He is trying to work on low carb diet more. Continue current treatment regimen. Diabetes will be reassessed in 3 months. Assessment & Plan (06/07/2022 8:34 AM EDT): Diabetes is worsening. He wasn't well controlled on basal insulin. He just got ozempic filled last night and took one dose already. We discussed treatment options. Continue low dose ozempic. Trial of low dose farxiga also. Diabetes will be reassessed in 3 months. Assessment & Plan (01/09/2017 9:25 AM EST): Unable to tolerate metformin. Restart Amaryl. Check labs. Further plan once labs back. Assessment & Plan (03/27/2016 9:12 AM EST): Check A1c. Continue medication. Recommend eye exam. He is due this year. He agrees to do so. Chronic pain syndrome 10/07/2015 Overview (10/07/2015): Sees Dr Major Sosa. On methadone. Has failed injection. Rhizotomy no help. Lumbar Disc Disease. bds First degree AV block Encounters Date Type Department Care Team Description 09/01/2024 Telephone [facility] [address] [place] [address] Ellis Chang MD 08/28/2024 Results Follow-Up [facility] [address] [place] [address] Ellis Chang MD 08/27/2024 11:45 AM EDT Office Visit [facility] [address] [place] [address] Ellis Chang MD Type 2 diabetes mellitus with hyperglycemia, with long-term current use of insulin (Primary Dx); Essential hypertension; Mixed hyperlipidemia 08/27/2024 Travel 07/07/2024 Refill [facility] [address] [place] [address] Elgin Logan MD Diabetes insipidus from Last 3 Months Immunizations Immunization Administration Dates Next Due COVID-19 (MODERNA) 1st,2nd,3rd Dose Monovalent 0 06/10/2021 COVID-19 (MODERNA) BIVALENT 12+YRS 01/08/2022 COVID-19 (PFIZER) Purple Cap Monovalent 06/03/19 21,05/07/2020 Pneumococcal Polysaccharide (PPSV23) 01/20/2020 Family History Medical History Relation Name Comments Cancer Brother x2 COPD Father Heart attack Father Heart disease Mother Cancer Other 1 Sibling gallbladder Lung cancer Other 1 Sibling 3 siblings with lung cancer Heart attack Other 2 Family Breast cancer Sister x3 Cancer Sister x3 Brain Relation Name Status Comments Brother x2 Father Mother Other 1 Sibling Other 2 Family Sister x3 Social History Tobacco Use Types Packs/Day Years [...] Pulse 65 08/27/2024 11:37 AM EDT Temperature 36.2 C (97.1 F) 08/21/2022 8:09 AM EDT Respiratory Rate 18 08/21/2022 8:09 AM EDT Oxygen Saturation 99% 08/27/2024 11:37 AM EDT Inhaled Oxygen Concentration - - Weight 101 kg (222 lb) 08/27/2024 11:37 AM EDT Height 182.9 cm (6') 08/27/2024 11:37 AM EDT Body Mass Index 30.11 08/27/2024 11:37 AM EDT Plan of Treatment Upcoming Encounters Date Type Department Care Team (Late st Contact Info) Description 04/29/2025 9:30 AM EST Office Visit [facility] [address] [facility] [address] [place] [address] Ellis Chang MD [address] [facility] [address] [place] [address] Health Maintenance Due Date Last Done Comments TDAP/TD VACCINES (1 - Tdap) 1973 COLOGUARD 06/30/1999 COLON CANCER SCREENING 5 YEA R SIGMOIDOSCOPY 06/30/1999 CT COLONOGRAPHY 06/30/1999 FECAL OCCULT BLOOD TEST 06/30/1999 FIT Testing (1 year) 06/30/1999 ZOSTER VACCINE (1 of 2) 2004 DIABETIC EYE EXAM 02/27/2016 02/26/2015 ANNUAL WELLNESS VISIT 01/19/2021 01/20/2020, 016 Pneumococcal Vaccine 50+ (2 of 2 - PCV) 01/19/2021 01/20/2020 COLONOSCOPY 02/21/2021 02/22/2016, 02/07/2016 COLORECTAL CANCER SCREENING 02/21/2021 DIABETIC FOOT EXAM 11/14/2022 11/14/2021, 0 11/14/2021, 06/28/2017, Additional history exists HEMOGLOBIN A1C 05/16/2023 11/15/2022, 08/26, 06/07/2022, Additional history exists COVID-19 Vaccine (2023-2 5 season) 2023 01/08/2022, 06/10/2021, 12/02/2020, Additional history exists LIPID PANEL 11/16/2023 11/15/2022, 01/27, 11/14/2021, Additional history exists INFLUENZA VACCINE 11/26/2024 12/14/2017 (Declined) URINE MICROALBUMIN-CREATININ E RATIO (uACR) 08/27/2025 08/27/2024, 06/07/2022 HEPATITIS C SCREENING Completed 12/14/2017 AAA SCREEN ONCE Completed 02/06/2020 Procedures Procedure Name Priority Date/Time Associated Diagnosis Comments MICROALBUMIN / CREATININE URINE RATIO Routine 08/27/2024 12:16 PM EDT Type 2 diabetes mellitus with hyperglycemia, with long-term current use of insulin POCT GLUCOSE, BLD (NON STRIP) Routine 08/27/2024 11:50 AM EDT Type 2 diabetes mellitus with hyperglycemia, with long-term current use of insulin SCANNED - LABS 07/25/2024 POCT GLYCOSYLATED HEMOGLOBIN (HGB A1C) Routine 09/12/2022 12:16 PM EDT Type 2 diabetes mellitus with hyperglycemia, with long-term current use of insulin LIPID PANEL W/ CHOL/HDL RATIO Routine 02/21/2022 9:07 AM EST Type 2 diabetes mellitus with hyperglycemia, without long-term current use of insulin Essential hypertension HEPATITIS C ANTIBODY Routine 12/14/2017 10:15 AM EDT Need for hepatitis C screening test SCANNED - COLONOSCOPY 02/22/2016 from Last 3 Months or Most Recently Relevant to Health Maintenance Results * Microalbumin / Creatinine Urine Ratio - Urine, Clean Catch (08/27/2024 12:16 PM EDT) [facility] Microalbumin/C reatinine Ratio 12.4 0.0 - 29.0 mg/g 08/28/2024 12:30 AM EDT [facility] Creatinine, Urine 137.3 mg/dL 08/28/2024 12:30 AM EDT [facility] Microalbumin, Urine 1.7 mg/dL 08/28/2024 12:30 AM EDT [facility] Urine Urine specimen obtained by clean catch procedure / Unknown Collection / Unknown 08/27/2024 12:16 PM EDT 08/27/2024 12:16 PM EDT Ellis Chang MD URINE ORDERABLES Final Re sult [facility]
[address] [place] [address], * (ABNORMAL) POC Glucose, Blood (08/27/2024 11:50 AM EDT) [facility] Glucose 150(A) 70 - 130 mg/dL Lot Number [id number] Expiration Date 02/08/25 Blood 08/27/2024 11:5 0 AM EDT Ellis Chang MD POINT OF CARE TEST ORDERA BLES Final Result * LABS SCANNED (07/25/2024) [facility] LAB BLOOD ORDERABLES Final Re sult * POC Glycosylated Hemoglobin (Hb A1C) (09/12/2022 12:16 PM EDT) [facility] Hemoglobin A1C 9.6 % [facility] Lot Number [id number] [facility] Expiration Date 05/07/24 [facility] Blood 09/12/2022 12:1 6 PM EDT Ellis Chang MD POINT OF CARE TEST ORDERA BLES Final Result [facility]
[address] [place] [address], * (ABNORMAL) Lipid Panel With / Chol / HDL Ratio (02/21/2022 9:07 AM EST) [facility] Total Cholesterol 176 0 - 200 mg/dL [facility] Comment: Cholesterol Reference Ranges (U.S. Department of Health and Human Services ATP III Classifications) Desirable <200 mg/dL Borderline High 200-239 mg/dL High Risk >240 mg/dL Triglyceride Reference Ranges (U.S. Department of Health and Human Services ATP III Classifications) Normal <150 mg/dL Borderline High 150-199 mg/dL High 200-499 mg/dL Very High >500 mg/dL HDL Reference Ranges (U.S. Department of Health and Human Services ATP III Classifications) Low <40 mg/dl (major risk factor for CHD) High >60 mg/dl ('negative' risk factor for CHD) LDL Reference Ranges (U.S. Department of Health and Human Services ATP III Classifications) Optimal <100 mg/dL Near Optimal 100-129 mg/dL Borderline High 130-159 mg/dL High 160-189 mg/dL Very High >189 mg/dL Triglycerides 197(H) 0 - 150 mg/dL [facility] HDL Cholesterol 34(L) 40 - 60 mg/dL [facility] VLDL Cholesterol Kailash 34 5 - 40 mg/dL [facility] LDL Chol Calc (NIH) 108(H) 0 - 100 mg/dL [facility] Chol/HDL Ratio 5.18 [facility] Blood 02/21/2022 9:07 AM EST 02/21/2022 Narrative [facility] ([facility]) - 02/23/2022 3:07 AM EST Performed at: [address] [id number] Powder Blender: Stew Greenberg MD, Phone: [phone] Patient Fasting: Y us Elgin Logan MD LAB BLOOD ORDERABLES Final Resu lt Performing Organization Address City/[facility]/ZIP Co de Phone Number [facility] (AMBULATORY) [address] [place] [address], [facility] [address] [place] [address], * Hepatitis C Antibody (12/14/2017 10:15 AM EDT) [facility] Hep C Virus Ab <0.1 0.0 - 0.9 s/co ratio [facility] Comment: Negative: < 0.8 Indeterminate: 0.8 - 0.9 Positive: > 0.9 The CDC recommends that a positive HCV antibody result be followed up with a HCV Nucleic Acid Amplification test (551053). Blood 12/14/2017 10:1 5 AM EDT 12/14/2017 Narrative [facility] (AMBULATORY) - 12/15/2017 7:11 AM EDT Performed at: 02 - [facility] [address] [place] [id number] Powder Blender: Scooby Cevallos PhD, Phone: [phone] Patient Fasting: Y us Elgin Logan MD LAB BLOOD ORDERABLES Final Resu lt Performing Organization Address [facility] Co de Phone Number [facility] [address] [place] [address], [facility] [address] [place] [address], * SCANNED - COLONOSCOPY (02/22/2016) us Elgin Logan MD CHART REVIEW TABS Final Resu lt from Last 3 Months or Most Recently Relevant to Health Maintenance Insurance [employer] MED[employer]ARE [employer]VANTAGE PPO Care Teams Four Roll Calender Operator Relationship Specialty Start Date End Date Solo Lema DO [address] [place] [address] PCP - General Internal Medicine 08/27/24
--- OUTSIDE RECORDS SUMMARY | 2024-09-26 07:40 | XMS_ITS | Encounter Summary ---
Author Organization [employer] ([place], [place], [place], [place]) Address [address] [place] [address] Care Team Providers Care Mass Spectroscopist Name Role Phone Elgin Logan MD Primary Care Provider Encounter Details Date Type Department Care Team (Late st Contact Info) Description 07/10/2019 Transcribed Document [facility] [place] [facility] [place] [address] ProviderMarilynn MD [address] [place], [place] [address] Social History Tobacco Use Types Packs/Day Years Used Date Smoking Tobacco: Never Assessed Sex and Gender Information Value Date Recorded Sex Assigned at Not on file Legal Sex Male 3:24 PM CDT Gender Identity Not on file Sexual Orientation Not on file documented as of this encounter Miscellaneous Notes * Cerner Conversion Note - Marilynn ProviderMD - 07/10/2019 9:25 AM CDT Patient: ISIDRO WOMACK Age: 64 Years Sex: Male : 1955 FOLLOW-UP Date of Service: 06/19/2019 CHIEF COMPLAINT: Low back pain. HISTORY OF PRESENT ILLNESS: Mr. Womack is a 63 y/o gentleman who has been with us since 2013. A brief recap of his history in reviewing all of our notes, this is a gentleman with a work-related injury from 2004. He underwent a lumbar discectomy at L3-[address] Giovanni Gay. The patient continued to have pain though through the lower extremities. He was under the care of Dr. Nieto and then Dr. Swenson and they had him on Methadone 60 mg a day with supplemental Hydrocodone. At the time we took over his care the patient was on Methadone 60 mg a day in divided dosages. Over the last 6 years we have involved a multimodal approach of injective therapy and medication management and have actually been able to wean the patient down lower on the Methadone to a daily dose of 40 mg per day. Again we have involved injective therapy and otherwise medication management and the patient has tolerated this weaning of his medications. He has been on Methadone 40 mg per day, but was still reporting about 70-80% relief with this treatment regimen, again involving injective therapy if an when indicated. The patient was utilizing PRN anti-inflammatories from time to time. In 2018 there was a decision from [employer] to not pay for his medications any more. This went before a [employer]s Supervisor and the ruling was in favor of what we were offering Mr. Womack as his treating physician. I had noted that we were involving a multimodal approach, I had noted that we had actually been able to reduce his medications from what he had been on previously and reported that he was reporting 70-80% relief, was functional and I had also reported that him being cognisant that [employer] was footing the bill for this individual we had not looked to involve advanced treatment options. The [employer]ber [employer]s Supervisor ruled in our favor and as such we have continued to take care of Mr. Womack in that regard. However, recently another issue arose with [employer] where they again stated they would not pay for his medications. It was my position that the previous ruling from 2018 still stood as nothing really had changed since that time. Unfortunately it has come to pass that [employer] is now wanting us to wean him off his medication. At his last visit Dr. Veras saw this individual and started to reduce his medication. Dr. Veras reduced his Methadone down to 30 mg per day. The patient has reported an increasing amount of pain and reported decreased functionality. He is here today to discuss this whole mess with me yet again. 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 HISTORY: Allergies: None recorded. Past Medical History: Past medical history and Nurses intake have been reviewed with the patient and is consistent with what has been previously noted. In reviewing the Nurses intake it is noted that the patient reports no side effects to the medication. I have also reviewed our notes on this individual and he has been compliant in everything we have asked. Previous drug screens have been appropriate. KASPERs have also been appropriate and have been reviewed at every visit. VITAL SIGNS: Vital signs are reviewed. BP 137/85, heart rate 76. PHYSICAL EXAMINATION: Constitutional: The patient is conversant and in no acute distress. Integumentary: Deferred. HEENT: Normocephalic. Neck: Deferred. Chest and Lung: Deferred. Cardiovascular: Deferred. Abdomen: Deferred. Peripheral Vascular: Deferred Neurologic: Deferred. Psychiatric: He is alert and oriented. Normal mood and affect are noted. Musculoskeletal: The remainder of the examination at this time is mostly nonfocal. The patient does not manifest any changes in his motor examination on today's visit. He does have moderate axial back tenderness. DIAGNOSTIC STUDIES: Not present MEDICAL DECISION MAKING: Stable. IMPRESSION: 1. Lumbar degenerative disc disease 2. Lumbar spondylosis. 3. Lumbar radiculitis of the bilateral lower extremities, left greater than right. DISCUSSION: Yet again I am not sure what [employer] is up to on this. There was a ruling previously in 2018 where it was noted that as the treating physician we had been able to reduce this patient's medications to a reasonable level. I had noted at that time that I had chosen to involve a multimodal approach of injective therapy and medication management but was not looking to increase medical expenditures by involving advanced treatment options. I am of the opinion that Methadone is a good treatment option for this patient as it is a unique and atypical opioid in the sense that it has activity at the NMDA receptor which makes it effective frequently not only for pain but also for the neuropathic component of the pain with its activity at the NMDA receptor. We have previously talked about adding Gabapentin and we had previously talked about involving advanced treatment options and I think this patient does have a neuropathic component to his pain that would be beneficial to involve a dorsal column stimulator. Again, however, being mindful of the patient's pain, his treatment and the fact that the patient was reporting 70-80% relief with the current treatment option we did not explore further treatment modalities at the added expenditure to [facility] , however, I am certain that any pain management physician in this area would deem given Mr. Womack's history that he would be an excellent candidate, at the very least a dorsal column stimulator trial, and if [facility] continues to play games with [facility]. [facility] care then I would recommend we get an appointment and second opinion from a reputable Board Certified pain Physician and ask them specifically to render an opinion as to whether Mr. Womack is a good candidate to undergo a spinal cord stimulator trial and subsequent implantation. I also would ask them to review my notes and to comment on the fact that we have reduced this patient's medications with good effect and have involved injective therapy if and when necessary, also with good effect. If [facility]ona cannot see fit to take care of Mr. Womack then I recommend that he seek treatment through another Physician as I cannot in good conscience take care of Mr. Womack under the restrictions that [facility] is trying to implement. For now I am going to increase his Methadone to 10 mg q 6. He will continue with PRN anti-inflammatories. I am giving him information about a spinal cord stimulator and an intrathecal drug delivery system. We will see the patient back in an 8 week follow-up. At this time I want to comment on the fact that [facility] said that they only wanted to pay for four of his visits a year and right now controlled substance prescriptions are honored for 60 days. As a matter of routine and per the standard of care, we write the patient two prescriptions that he is responsible for; one for the first month and one for the second month. Again this is a common practice in pain management facilities in this region. In that way we are able to put him out for 8 weeks at a time. Of course in the calendar year that would involve six visits. Again the limiting aspect is that the opioid prescriptions are not valid after 60 days, therefore it is necessary for us to see this patient if we are going to write him a controlled substance every 60 days which comes out to six times per year. Again [facility] would have it that they only pay for four of those visits which makes no sense and the fact that any [employer] Supervisor who would not understand this indicates he needs help with basic math. Ian Gonsalves II, M.D. GUNNER/merari Electronically signed by Nat[facility] Conversion Configuration Management Architect Cerner at 06/13/2022 9:07 AM CDT documented in this encounter Plan of Treatment Not on file documented as of this encounter Visit Diagnoses Not on filedocumented in this encounter Care Teams Mass Spectroscopist Relationship Specialty Start Date End Date Elgin Logan MD [address] [place] [id number] PCP - General Family Medicine 03/16/22 documented as of this encounter
--- OUTSIDE RECORDS SUMMARY | 2024-09-26 07:40 | XMS_ITS | Encounter Summary ---
Author Organization [facility] Address [address] [place] [address] Care Team Providers Care Vault Cashier Name Role Phone Solo Lema Primary Care Provider + Encounter Details Date Type Department Care Team (Late st Contact Info) Description 08/28/2024 Results Follow-Up [facility] [address] [id number] Ellis Chang MD [address] [address] Social History Tobacco Use Types Packs/Day Years [...] Description 04/29/2025 9:30 AM EST Office Visit [facility] [address] [phone] Ellis Chang MD [address] [id number] documented as of this encounter Visit Diagnoses Not on filedocumented in this encounter Care Teams Vault Cashier Relationship Specialty Start Date End Date Solo Lema DO [address] [facility] [address] [place] [address] PCP - General Internal Medicine 08/27/24 documented as of this encounter
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
--- NOTE | 2024-09-26 07:44 | PC.NURSE ---
PT TO CT
[2024-09-26 07:48] LABS: Hematocrit 50.8 % (42.0-52.0); Hemoglobin 16.9 g/dL (14.1-18.0); Immature Granulocytes % 0.4 %; Mean Corpuscular HGB Conc 33.3 g/dL (31.8-35.4); Mean Corpuscular Hemoglobin 28.7 pg (27.0-31.2); Mean Corpuscular Volume 86.4 fl (80-94); Nucleated Red Blood Cells % 0 %; Platelet Count 185 K/mm3 (142-424); Red Blood Count 5.88 M/mm3 (4.60-6.20); Red Cell Distribution Width-SD 43.0 fL; White Blood Count 8.3 K/mm3 (4.8-10.8)
[2024-09-26 07:53] LABS: Albumin Level 3.9 g/dl (3.5-5.0); Chloride 96 mmol/L (98-107); Potassium 4.0 mmoL/L (3.5-5.1); Sodium 133 mmol/L (136-145)
[2024-09-26 07:56] LABS: Activated Partial Thrombo Time 24.8 seconds (22.8-30.6); Alanine Aminotransferase 27 U/L (12-78); Albumin/Globulin Ratio 1.0 (1.1-1.8); Alkaline Phosphatase 71 U/L (38-126); Anion Gap 13.0 mEq/L (5-15); Aspartate Amino Transferase 40 U/L (17-59); Bilirubin,Total 0.8 mg/dl (0.2-1.3); Blood Urea Nitrogen 13 mg/dl (9-20); Calcium 9.3 mg/dl (8.4-10.2); Carbon Dioxide 28 mmol/L (22.0-30.0); Creatinine,Serum 0.90 mg/dl (0.66-1.25); Estimated Glomerular Filt Rate 83 ml/min (>60); GFR (African American) 101 ML/MIN (>60); Globulin 4.1 g/dL (1.3-3.2); Glucose 277 mg/dl (74-100); INR 1.06 (0.9-1.1); Lipase 75 U/L (23-300); Prothrombin Time 11.7 seconds (10.1-12.5); Total Protein,Serum 8.0 g/dl (6.3-8.2)
[2024-09-26] MEDS: 0.9 % SODIUM CHLORIDE 50 ML VIAL IV (08:02)
[2024-09-26] MEDS: IOPAMIDOL-370 (76%);100ML BOTTLE 80 ML IV ×2 (08:02)
[2024-09-26] MEDS: SODIUM CHLORIDE 0.9% 10ML SYR (RAD ONLY) 10 ML IV ×2 (08:02)
--- NOTE | 2024-09-26 08:20 | PC.NURSE ---
PT ON PHONE, URINAL PROVIDED. CALL LIGHT WITHIN REACH
[2024-09-26 08:31] VITALS: BP 164/87; PULSE 82; RESP 13; O2SAT 98
[2024-09-26 08:31] LABS: Microscopic, Urine URINE MICROSCOPIC (MICROSCOPIC)
[2024-09-26 08:36] LABS: Bilirubin,Urine Negative (Negative); Color,Urine YELLOW (Yellow); Glucose,Urine (UA) 3+ (Negative); Ketones,Urine Negative (Negative); Leukocyte Esterase,Urine Negative (Negative); PH,Urine 7.0 (5.0-8.5); Protein,Urine Negative (Negative); Specific Gravity, Urine 1.010 (1.005-1.030); Urobilinogen,Urine 0.2 EU/dl (0.2)
--- NOTE | 2024-09-26 08:36 | PC.NURSE ---
C-Spine clear by Dr. Hobbs, C-Collar removed. Pt updated on POC.
[2024-09-26] MEDS: ACETAMINOPHEN 1,000MG/100ML VIAL 1000 MG IV (08:39)
--- NOTE | 2024-09-26 08:39 | PC.NURSE ---
PT MEDICATED PER JOE HEREDIA PROVIDED. FAMILY AT BEDSIDE. CALL LIGHT WITHIN REACH
[2024-09-26 09:00] VITALS: BP 174/94; PULSE 80; RESP 10; O2SAT 97
[2024-09-26 09:16] LABS: Bacteria,Urine Trace /lpf; Squamous Epithelial Cell,Urine Occasional #/hpf (0-5)
--- NOTE | 2024-09-26 09:23 | PC.NURSE ---
DR MULU BROOKS
[2024-09-26 09:30] VITALS: BP 148/84; PULSE 79; RESP 13; O2SAT 96
--- NOTE | 2024-09-26 09:53 | PC.NURSE ---
Called [facility] for an Ortho consult about a scapula fx. images were power shared and [facility] would call us back
--- NOTE | 2024-09-26 10:16 | PC.NURSE ---
PT UPDATED ON POC, FAMILY AT BEDSIDE. CALL LIGHT WITHIN REACH
[2024-09-26 10:48] VITALS: BP 174/83; PULSE 79; RESP 16; TEMP 36.6; O2SAT 100
== END 2024-09-26 10:50 | disposition home or self-care (01) ==
PROVIDERS: Emergency Provider Student in an Organized Health Care Education/Training Program
DX: S42.101A Fracture of unspecified part of scapula, right shoulder, initial encounter for closed fracture (principal); M25.511 Pain in right shoulder; V20.49XA Other motorcycle driver injured in collision with pedestrian or animal in traffic accident, initial encounter
CPT/HCPCS: 70450; 70496; 70498; 71045; 71275; 72125; 72128; 72131; 72170; 74174; 80053; 81001; 83605; 83690; 85025; 85610; 85730; 96374; 99285; 99291; G0390; J0131; Q9967

== ENCOUNTER 2024-09-30 14:14 | Outpatient (CLI) | payer MEDICARE, SELFPAY ==
--- OUTSIDE RECORDS SUMMARY | 2024-08-27 11:45 | XMS_ITS | Encounter Summary ---
Author Organization [facility] Address [address] [place] [address] Care Team Providers Care Tow Truck Dispatcher Name Role Phone ToreySolo zurita Ernie Primary Care Provider + Reason for Visit * Reason Comments Diabetes Type 2 diabetes amaury itus with hyperglycemia, with long-term current use of insulin Hypertension Hyperlipidemia Encounter Details Date Type Department Care Team (Late st Contact Info) Description 08/27/2024 11:45 AM EDT Office Visit [facility] [address] [phone] Ellis Chang MD [address] [phone] Type 2 diabetes mellitus with hyperglycemia, with [...] Diabetes will be reassessed in 6 months. [employer] G7 CGM was downloaded today. Data was [...] Application, As Needed Insulin Pen Needle (Pen [place]) 32G X 4 MM misc 1 each, [...] Description 04/29/2025 9:30 AM EST Office Visit [facility] END[facility]CR[facility] [address] [phone] Ellis Chang MD [address] [phone] documented as of this encounter Procedures Procedure [...] - 29.0 mg/g 08/28/2024 12:30 AM EDT [facility] Creatinine, Urine 137.3 mg/dL 08/28/2024 12:30 AM EDT [facility] Microalbumin, Urine 1.7 mg/dL 08/28/2024 12:30 AM EDT [facility] Urine Urine specimen obtained by clean catch procedure / Unknown Collection / Unknown 08/27/2024 12:16 PM EDT 08/27/2024 12:16 PM EDT Ellis Chang MD URINE ORDERABLES Final Re sult [facility]
[address] [place] [address], * (ABNORMAL) POC Glucose, Blood (08/27/2024 11:50 [...] hyperlipidemia documented in this encounter Care Teams Tow Truck Dispatcher Relationship Specialty Start Date End Date Solo Lema DO [address] [place] [address] [place] [address] PCP - General Internal Medicine 08/27/24 documented as of this encounter
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
--- OUTSIDE RECORDS SUMMARY | 2024-09-30 14:18 | XMS_ITS | Encounter Summary ---
Author Organization [employer] ([place], [place], [place], [place]) Address [address] [place] [address] Care Team Providers Care Medical Billing Associate Name Role Phone Elgin Logan MD Primary Care Provider Encounter Details Date Type Department Care Team (Late st Contact Info) Description 09/03/2019 Transcribed Document [facility] [place] [facility] [place] [address] ProviderMarilynn MD [address] [place], [place] [id number] Social History Tobacco Use Types Packs/Day Years [...] follow-up appointment. GRANT Ratliff/cristino Electronically signed by [facility], [facility] Conversion Physics Technician Cerner at 06/13/2022 9:02 AM CDT documented in this encounter Plan of Treatment Not on file documented as of this encounter Visit Diagnoses Not on filedocumented in this encounter Care Teams Medical Billing Associate Relationship Specialty Start Date End Date Elgin oLgan MD [address] [place] [address] PCP - General Family Medicine 03/16/22 documented as of this encounter
--- OUTSIDE RECORDS SUMMARY | 2024-09-30 14:18 | XMS_ITS | Encounter Summary ---
Author Organization [employer] ([place], [place], [place], [place]) Address [address] [place] [address] Care Team Providers Care Paving Block Cutter Name Role Phone Elgin Logan MD Primary Care Provider Encounter Details Date Type Department Care Team (Late st Contact Info) Description 01/04/2020 Transcribed Document [facility] [place] [address] ProviderMarilynn MD [address] [place], [place] [id number] Social History Tobacco Use Types Packs/Day Years Used Date Smoking Tobacco: Never Assessed Sex and Gender Information Value Date Recorded Sex Assigned at Not on file Legal Sex Male 3:24 PM CDT Gender Identity Not on file Sexual Orientation Not on file documented as of this encounter Miscellaneous Notes * [employer]ner Conversion Note - Marilynn ProviderMD - 01/04/2020 11:27 AM DATA REVIEWER Patient: ISIDRO WOMACK Age: 64 Years Sex: [...] Tania Veras M.D. YANICK/ac Electronically signed by Natty, [facility] Conversion School Bus Driver Cerner at 06/13/2022 8:46 AM CDT documented in this encounter Plan of Treatment Not on file documented as of this encounter Visit Diagnoses Not on filedocumented in this encounter Care Teams Paving Block Cutter Relationship Specialty Start Date End Date Elgin Logan MD [address] [place] [address] PCP - General Family Medicine 03/16/22 documented as of this encounter
--- OUTSIDE RECORDS SUMMARY | 2024-09-30 14:18 | XMS_ITS | Encounter Summary ---
Author Organization Healthcare Address [address] [place] [address] Care Team Providers Care Chip Mucker Name Role Phone Harvey Milan MD Primary Care Provider [phone] Encounter Details Date Type Department Care Team (Late st Contact Info) Description 09/26/2024 Orders Only External Location [address] [place] [address] Provider, External Social History Tobacco Use Types Packs/Day Years Used Date Smoking Tobacco: Never Assessed Sex and Gender Information Value Date Recorded Sex Assigned at Not on file Legal Sex Male 8:14 PM EDT Gender Identity Not on file Sexual Orientation Not on file documented as of this encounter Plan of Treatment Not on file documented as of this encounter Procedures Procedure Name Priority Date/Time Associated Diagnosis Comments CT OUTSIDE IMAGES 09/26/2024 7:59 AM EDT documented in this encounter Results * CT OUTSIDE IMAGES (09/26/2024 7:59 AM EDT) Anatomical Region Laterality Modality Computed Tomogra phy 09/26/2024 7:59 AM EDT us External Provider IMG CT PROCEDURES Final Result documented in this encounter Visit Diagnoses Not on filedocumented in this encounter Care Teams Chip Mucker Relationship Specialty Start Date End Date Harvey Milan MD [address] [place] [address] [address] [place] [address] PCP - General 07/09/20 documented as of this encounter
--- OUTSIDE RECORDS SUMMARY | 2024-09-30 14:18 | XMS_ITS | Encounter Summary ---
Author Organization Healthcare Address [address] [place] [address] Care Team Providers Care Fiber Optics Engineer Name Role Phone Harvey Milan MD Primary Care Provider [phone] Encounter Details Date Type Department Care Team (Late st Contact Info) Description 09/26/2024 Orders Only External Location [address] [place] [address] Provider, External Social History Tobacco Use Types [...] Associated Diagnosis Comments CT OUTSIDE IMAGES 09/26/2024 8:03 AM EDT documented in this encounter Results * CT OUTSIDE IMAGES (09/26/2024 8:03 AM EDT) Anatomical Region Laterality Modality Computed Tomogra phy 09/26/2024 8:03 AM EDT us External Provider IMG CT PROCEDURES Final Result documented in this encounter Visit Diagnoses Not on filedocumented in this encounter Care Teams Fiber Optics Engineer Relationship Specialty Start Date End Date Harvey Milan MD [address] [place] [address] [address] [place] [address] PCP - General 07/09/20 documented as of this encounter
--- OUTSIDE RECORDS SUMMARY | 2024-09-30 14:18 | XMS_ITS | Encounter Summary ---
[facility] Address [address] [place] [address] Care Team Providers Care Bench Machine Operator Name Role Phone Solo Lema Primary Care [...] Description 04/29/2025 9:30 AM EST Office Visit [facility] [address] [address] Ellis Chang MD [address] [facility] [address] [place] [address] documented as of this encounter Visit Diagnoses Not on filedocumented in this encounter Care Teams Bench Machine Operator Relationship Specialty Start Date End Date Solo Lema DO [address] [place] [address] PCP - General Internal Medicine 08/27/24 documented as of this encounter
--- OUTSIDE RECORDS SUMMARY | 2024-09-30 14:18 | XMS_ITS | Clinical Summary ---
Author Organization [facility] Address [address] [place] [address] Care Team Providers Care Electrical & Instrumentation Supervisor Name Role Phone Harvey Milan MD Primary Care Provider Encounters Date Type Department Care Team Description 09/26/2024 Orders Only External Location [address] [place] [address] Provider, External 09/26/2024 Orders Only External Location [address] [place] [address] Provider, External 09/26/2024 Orders Only External Location [address] [place] [address] Provider, External 09/26/2024 Orders Only External Location [address] [place] [address] Provider, External 09/26/2024 Orders Only External Location [address] [place] [address] Provider, External 09/26/2024 Orders Only External Location [address] [place] [address] Provider, External 09/26/2024 Orders Only External Location [address] [place] [address] Provider, External 09/26/2024 Orders Only External Location [address] [place] [address] Provider, External 09/26/2024 Orders Only External Location [address] [place] [address] Provider, External 09/26/2024 Orders Only External Location [address] [place] [address] Provider, External from Last 3 Months Social History Tobacco Use Types Packs/Day Years Used Date Smoking Tobacco: Never Assessed Sex and Gender Information Value Date Recorded Sex Assigned at Not on file Legal Sex Male 8:14 PM EDT Gender Identity Not on file Sexual Orientation Not on file Plan of Treatment Not on file Procedures Procedure Name Priority Date/Time Associated Diagnosis Comments CT OUTSIDE IMAGES 09/26/2024 8:[address] OUTSIDE IMAGES 09/26/2024 8:[address] OUTSIDE IMAGES 09/26/2024 7:[address] OUTSIDE IMAGES 09/26/2024 7:[address] OUTSIDE IMAGES 09/26/2024 7:[address] OUTSIDE IMAGES 09/26/2024 7:[address] OUTSIDE IMAGES 09/26/2024 7:[address] OUTSIDE IMAGES 09/26/2024 7:49 AM EDT XR OUTSIDE IMAGES 09/26/2024 7:36 AM EDT XR OUTSIDE IMAGES 09/26/2024 7:24 AM EDT from Last 3 Months Results * CT OUTSIDE IMAGES (09/26/2024 8:03 AM EDT) Only the most recent of8 resultswithin the time period is included. Anatomical Region Laterality Modality Computed Tomogra phy 09/26/2024 8:03 AM EDT us External Provider IMG CT PROCEDURES Final Result * XR OUTSIDE IMAGES (09/26/2024 7:36 AM EDT) Only the most recent of2 resultswithin the time period is included. Anatomical Region Laterality Modality Radiographic Peggy ging 09/26/2024 7:36 AM EDT us External Provider IMG XR PROCEDURES Final Result from Last 3 Months Care Teams Electrical & Instrumentation Supervisor Relationship Specialty Start Date End Date Harvey Milan MD [address] [place] [address] [address] [place] [address] PCP - General 07/09/20
--- OUTSIDE RECORDS SUMMARY | 2024-09-30 14:18 | XMS_ITS | Encounter Summary ---
Author Organization [employer] ([place], [place], [place], [place]) Address [address] [place] [address] Care Team Providers Care Automatic Beading Lathe Operator Name Role Phone Elgin Logan MD Primary Care Provider [phone] Encounter Details Date Type Department Care Team (Late st Contact Info) Description 03/05/2020 Transcribed Document [facility] Family Medicine [facility] [place] [address] ProviderMarilynn MD [address] [place], [place] [address] Social History Tobacco Use Types Packs/Day Years Used Date Smoking Tobacco: Never Assessed Sex and Gender Information Value Date Recorded Sex Assigned at Not on file Legal Sex Male 3:24 PM CDT Gender Identity Not on file Sexual Orientation Not on file documented as of this encounter Miscellaneous Notes * Cerner Conversion Note - Historical ProviderMD - 03/05/2020 3:30 PM DOLLY OPERATOR Patient: ISIDRO WOMACK Age: 64 Years Sex: [...] He had recently seen an administrative low brokerage clerk who had decided to discontinue his Voltaren Gel as well as having the patient return to the clinic every three months. He tried to explain to the brokerage clerk about our current requirements to come back [...] months for a followup appointment. GRANT Ratliff/quin documented in this encounter Plan of Treatment Not on file documented as of this encounter Visit Diagnoses Not on filedocumented in this encounter Care Teams Automatic Beading Lathe Operator Relationship Specialty Start Date End Date Elgin Logan MD [address] [place] [address] PCP - General Family Medicine 03/16/22 documented as of this encounter
--- OUTSIDE RECORDS SUMMARY | 2024-09-30 14:18 | XMS_ITS | Clinical Summary ---
Author Organization [employer] ([place], [place], [place], [place]) Address [address] [place] [address] Care Team Providers Care Food Selector Name Role Phone Elgin Logan MD Primary Care Provider [phone] Allergies No known active allergies Medications desmopressin [...] 03/10/19 23 Active naloxone (NARCAN) 4 mg/actuation [place] SMARTSIG:Both Nares 01/11/20 22 Active semaglutide (Ozempic) [...] Date Vlad rded Speak language other than Italian at home Not on file 03/11/2023 Want [...] (1 - 1-dose 75+ series) 2029 Insurance [facility] COMM[employer]CIAL [facility] MEDICARE PPO Care Teams Food Selector Relationship Specialty Start Date End Date Elgin Logan MD [address] [facility] [place] [place] [address] PCP - General Family Medicine 03/16/22
--- OUTSIDE RECORDS SUMMARY | 2024-09-30 14:18 | XMS_ITS | Encounter Summary ---
Author Organization [employer] [facility] ([place], [place], [place], [place]) Address [address] [place] [address] Care Team Providers Care Analytical Chemistry Teacher Name Role Phone Elgin Logan MD Primary Care Provider Encounter Details Date Type Department Care Team (Late st Contact Info) Description 07/10/2019 Transcribed Document [facility] Family Medicine [facility] [place] [address] ProviderMarilynn MD [address] [place], [place] [address] Social History Tobacco Use Types Packs/Day Years [...] In 2018 there was a decision from [employer] to not pay for his medications any more. This went before a Cook [employer] and the ruling was in favor of [...] also reported that him being cognisant that [employer] was footing the bill for this individual we had not looked to involve advanced treatment options. The [employer] ruled in our favor and as such we have continued to take care of Mr. Womack in that regard. However, recently another issue arose with [employer] where they again stated they would not pay for his medications. It was my position that the previous ruling from 2018 still stood as nothing really had changed since that time. Unfortunately it has come to pass that [employer] is now wanting us to wean him [...] continues to play games with Mr. Womack's [facility] care then I would recommend we get [...] no sense and the fact that any Cook Helper Fruit who would not understand this indicates he needs help with basic math. Ian Gonsalves II, M.D. GUNNER/merari Electronically signed by Natty [facility] Conversion Wheat Washer Cerner at 06/13/2022 9:07 AM CDT documented in this encounter Plan of Treatment Not on file documented as of this encounter Visit Diagnoses Not on filedocumented in this encounter Care Teams Analytical Chemistry Teacher Relationship Specialty Start Date End Date Elgin Logan MD [address] [place] [address] PCP - General Family Medicine 03/16/22 documented as of this encounter
--- OUTSIDE RECORDS SUMMARY | 2024-09-30 14:18 | XMS_ITS | Encounter Summary ---
Author Organization Healthcare Address [address] [place] [address] Care Team Providers Care Water Fitness Instructor Name Role Phone Harvey Milan MD Primary Care Provider [phone] Encounter Details Date Type Department Care Team (Late st Contact Info) Description 09/26/2024 Orders Only External Location [address] [place] [address] Provider, External Social History Tobacco Use Types [...] Associated Diagnosis Comments CT OUTSIDE IMAGES 09/26/2024 7:52 AM EDT documented in this encounter Results * CT OUTSIDE IMAGES (09/26/2024 7:52 AM EDT) Anatomical Region Laterality Modality Computed Tomogra phy 09/26/2024 7:52 AM EDT us External Provider IMG CT PROCEDURES Final Result documented in this encounter Visit Diagnoses Not on filedocumented in this encounter Care Teams Water Fitness Instructor Relationship Specialty Start Date End Date Harvey Milan MD [address] [place] [address] [address] [place] [address] PCP - General 07/09/20 documented as of this encounter
--- OUTSIDE RECORDS SUMMARY | 2024-09-30 14:18 | XMS_ITS | Encounter Summary ---
Author Organization Healthcare Address [address] [place] [address] Care Team Providers Care Lead Generator Name Role Phone Harvey Milan MD Primary Care Provider [phone] Encounter Details Date Type Department Care Team (Late st Contact Info) Description 09/26/2024 Orders Only External Location [address] [place] [address] Provider, External Social History Tobacco Use Types [...] Associated Diagnosis Comments CT OUTSIDE IMAGES 09/26/2024 7:54 AM EDT documented in this encounter Results * CT OUTSIDE IMAGES (09/26/2024 7:54 AM EDT) Anatomical Region Laterality Modality Computed Tomogra phy 09/26/2024 7:54 AM EDT us External Provider IMG CT PROCEDURES Final Result documented in this encounter Visit Diagnoses Not on filedocumented in this encounter Care Teams Lead Generator Relationship Specialty Start Date End Date Harvey Milan MD [address] [place] [address] [address] [place] [address] PCP - General 07/09/20 documented as of this encounter
--- OUTSIDE RECORDS SUMMARY | 2024-09-30 14:18 | XMS_ITS | Encounter Summary ---
Author Organization Healthcare Address [address] [place] [address] Care Team Providers Care Water Reclamation Systems Operator Name Role Phone Harvey Milan MD Primary Care Provider [phone] Encounter Details Date Type Department Care Team (Late st Contact Info) Description 09/26/2024 Orders Only External Location [address] [place] [address] Provider, External Social History Tobacco Use Types [...] Associated Diagnosis Comments CT OUTSIDE IMAGES 09/26/2024 7:49 AM EDT documented in this encounter Results * CT OUTSIDE IMAGES (09/26/2024 7:49 AM EDT) Anatomical Region Laterality Modality Computed Tomogra phy 09/26/2024 7:49 AM EDT us External Provider IMG CT PROCEDURES Final Result documented in this encounter Visit Diagnoses Not on filedocumented in this encounter Care Teams Water Reclamation Systems Operator Relationship Specialty Start Date End Date Harvey Milan MD [address] [place] [address] [address] [place] [address] PCP - General 07/09/20 documented as of this encounter
--- OUTSIDE RECORDS SUMMARY | 2024-09-30 14:18 | XMS_ITS | Encounter Summary ---
Author Organization [employer] ([place], [place], [place], [place]) Address [address] [place] [address] Care Team Providers Care Escrow Manager Name Role Phone Elgin Logan MD Primary Care Provider Encounter Details Date Type Department Care Team (Late st Contact Info) Description 04/28/2019 Transcribed Document [facility] [place] [facility] [place] [address] ProviderMarilynn MD [address] [place], [place] [address] Social History Tobacco Use Types Packs/Day Years Used Date Smoking Tobacco: Never Assessed Sex and Gender Information Value Date Recorded Sex Assigned at Not on file Legal Sex Male 3:24 PM CDT Gender Identity Not on file Sexual Orientation Not on file documented as of this encounter Miscellaneous Notes * Cerner Conversion Note - Marilynn ProviderMD - 04/28/2019 1:30 PM SHOE SHANKER Patient: ISIDRO WOMACK Age: 63 Years Sex: [...] radiating, numbness/tingling, dull and sharp. He takes [id number] medications but did not specify. He has [...] PLAN: I have received a letter from [employer] that they were no longer going [...] not so I have told him to on call pharmacy [employer]'s [employer] as it was their order. If he could provide documentation that they would still cover it we would change it. He has an understanding of the plan. I am going to have him see Dr. Gonsalves at his next visit because he wanted to discuss this further. Tania Veras M.D. YANICK/quin Electronically signed by Natty [facility] Conversion Instructional Technology Coach Cerner at 06/13/2022 9:12 AM CDT documented in this encounter Plan of Treatment Not on file documented as of this encounter Visit Diagnoses Not on filedocumented in this encounter Care Teams Escrow Manager Relationship Specialty Start Date End Date Elgin Logan MD [address] [place] [address] PCP - General Family Medicine 03/16/22 documented as of this encounter
--- OUTSIDE RECORDS SUMMARY | 2024-09-30 14:18 | XMS_ITS | Encounter Summary ---
Author Organization Healthcare Address [address] [place] [address] Care Team Providers Care Solar Sales Ambassador Name Role Phone Harvey Milan MD Primary Care Provider [phone] Encounter Details Date Type Department Care Team (Late st Contact Info) Description 09/26/2024 Orders Only External Location [address] [place] [address] Provider, External Social History Tobacco Use Types [...] on filedocumented in this encounter Care Teams Solar Sales Ambassador Relationship Specialty Start Date End Date Harvey Milan MD [address] [place] [address] [address] [place] [address] PCP - General 07/09/20 documented as of this encounter
--- OUTSIDE RECORDS SUMMARY | 2024-09-30 14:18 | XMS_ITS | Encounter Summary ---
[facility] [address] [place] [address] Care Team Providers Care Plasterer Foreman Name Role Phone Solo Lema Primary Care Provider + Encounter Details Date Type Department Care Team (Late st Contact Info) Description 08/28/2024 Results Follow-Up [facility] [address] [address] Ellis Chang MD [address] [address] Social History Tobacco Use Types Packs/Day Years [...] Description 04/29/2025 9:30 AM EST Office Visit [facility] [address] [address] Ellis Chang MD [address] [id number] documented as of this encounter Visit Diagnoses Not on filedocumented in this encounter Care Teams Plasterer Foreman Relationship Specialty Start Date End Date Solo Lema DO [address] [facility] [address] [place] [address] PCP - General Internal Medicine 08/27/24 documented as of this encounter
--- OUTSIDE RECORDS SUMMARY | 2024-09-30 14:18 | XMS_ITS | Encounter Summary ---
Author Organization [employer] ([place], [place], [place], [place]) Address [address] [place] [address] Care Team Providers Care Scientist Engineer Name Role Phone Elgin Logan MD Primary Care Provider Encounter Details Date Type Department Care Team (Late st Contact Info) Description 05/17/2020 Transcribed Document [facility] [place] [facility] [place] [address] ProviderMarilynn MD [address] [place], [place] [address] Social History Tobacco Use Types Packs/Day Years [...] on filedocumented in this encounter Care Teams Scientist Engineer Relationship Specialty Start Date End Date Elgin Logan MD [address] [place] [address] PCP - General Family Medicine 03/16/22 documented as of this encounter
--- OUTSIDE RECORDS SUMMARY | 2024-09-30 14:18 | XMS_ITS | Encounter Summary ---
[facility] [address] [place] [address] Care Team Providers Care Supermarket Manager Name Role Phone Torey Solo Ernie BENTLEY Primary Care Provider + Encounter Details Date Type Department Care Team (Late st Contact Info) Description 09/01/2024 Telephone [facility] [address] [address] Ellis Chang MD [address] [address] Social History Tobacco Use Types [...] Rep - 09/01/2024 12:54 PM EDT The [facility] received a fax that requires your attention. The document has been indexed to the patient???s chart for your review. Reason for sending: MEDICAL RECORDS REQUESTED Documents Description: LABS 07-25-2024 AND 07-29-2024 Name of Sender: ROVERTO HUTCHINSON [facility] [address] [place] [address] PHONE [phone] FAX [phone] Date Indexed: 09-01-2024 Notes (if needed): INDEXED UNDER LABS. documented in this encounter Plan of Treatment Upcoming Encounters Date Type Department Care Team (Late st Contact Info) Description 04/29/2025 9:30 AM EST Office Visit [facility] [address] [address] Ellis Chang MD [address] [address] documented as of this encounter Visit Diagnoses Not on filedocumented in this encounter Care Teams Supermarket Manager Relationship Specialty Start Date End Date Solo eLma DO [address] [facility] [id number] PCP - General Internal Medicine 08/27/24 documented as of this encounter
--- OUTSIDE RECORDS SUMMARY | 2024-09-30 14:18 | XMS_ITS | Encounter Summary ---
Author Organization Healthcare Address [address] [place] [address] Care Team Providers Care Production Manufacturing Worker Name Role Phone Harvey Milan MD Primary Care Provider [phone] Encounter Details Date Type Department Care Team (Late st Contact Info) Description 09/26/2024 Orders Only External Location [address] [place] [address] Provider, External Social History Tobacco Use Types [...] on filedocumented in this encounter Care Teams Production Manufacturing Worker Relationship Specialty Start Date End Date Harevy Milan MD [address] [place] [address] [address] [place] [address] PCP - General 07/09/20 documented as of this encounter
--- OUTSIDE RECORDS SUMMARY | 2024-09-30 14:18 | XMS_ITS | Encounter Summary ---
Author Organization [employer] ([place], [place], [place], [place]) Address [address] [place] [address] Care Team Providers Care Switchboard Operator Receptionist Name Role Phone Elgin Logan MD Primary Care Provider Encounter Details Date Type Department Care Team (Late st Contact Info) Description 03/04/2019 Transcribed Document [facility] [place] [address] ProviderMarilynn MD [address] [place], [place] [address] Social History Tobacco Use Types Packs/Day Years Used Date Smoking Tobacco: Never Assessed Sex and Gender Information Value Date Recorded Sex Assigned at Not on file Legal Sex Male 3:24 PM CDT Gender Identity Not on file Sexual Orientation Not on file documented as of this encounter Miscellaneous Notes * [employer] Conversion Note - Historical ProviderMD - 03/04/2019 2:48 PM SECURITY SYSTEM ENGINEER Patient: ISIDRO WOMACK Age: 63 Years Sex: [...] I am going to refer him [facility] for [facility] lumbar brace for pain [...] on filedocumented in this encounter Care Teams Switchboard Operator Receptionist Relationship Specialty Start Date End Date Elgin Logan MD [address] [facility] [place] [address] PCP - General Family Medicine 03/16/22 documented as of this encounter
--- OUTSIDE RECORDS SUMMARY | 2024-09-30 14:18 | XMS_ITS | Clinical Summary ---
Author Organization [facility] Address [address] [place] [address] Care Team Providers Care Leather Goods I Assembler Name Role Phone Solo Lema Ernie Primary [...] 09/12/19 23 Active Insulin Pen Needle (Pen [place]) 32G X 4 MM misc 1 each Daily. 100 each 3 09/13/19 23 Active desmopressin (DDAVP) 0.1 MG tabletIndicati ons:Diabetes insipidus TAKE 1 TABLET BY MOUTH TWICE A DAY 180 tablet 1 08/24/19 24 Active Continuous Glucose Sensor (Dexcom G7 Sensor) [facility] [place] Use 1 each Every 10 (Ten) Days. [...] Diabetes will be reassessed in 6 months. DexLoaded Pocket G7 CGM was downloaded today. Data was [...] Type Department Care Team Description 09/01/2024 Telephone [facility] ENDOCRINOLOGY [address] [place] [address] Ellis Chang MD 08/28/2024 Results Follow-Up [facility] ENDOCR[facility]Y [address] [place] [address] Ellis Chang MD 08/27/2024 11:45 AM EDT Office Visit [facility] ENDOCR[facility]Y [address] [place] [address] Ellis Chang MD Type 2 diabetes mellitus with hyperglycemia, with long-term current use of insulin (Primary Dx); Essential hypertension; Mixed hyperlipidemia 08/27/2024 Travel 07/07/2024 Refill [facility] FAMILY MEDICINE [address] [place] [address] Elgin Logan MD Diabetes insipidus [...] Description 04/29/2025 9:30 AM EST Office Visit [facility] ENDOCRINOLOGY [address] [facility] [address] [facility] [address] [place] [address] Ellis Chang MD [address] [facility] [address] [place] [address] Health Maintenance Due Date Last Done Comments [...] Urine, Clean Catch (08/27/2024 12:16 PM EDT) [facility] Microalbumin/C reatinine Ratio 12.4 0.0 - 29.0 mg/g 08/28/2024 12:30 AM EDT [facility] Creatinine, Urine 137.3 mg/dL 08/28/2024 12:30 AM EDT [facility] Microalbumin, Urine 1.7 mg/dL 08/28/2024 12:30 AM EDT [facility] Urine Urine specimen obtained by clean catch procedure / Unknown Collection / Unknown 08/27/2024 12:16 PM EDT 08/27/2024 12:16 PM EDT Ellis Chang MD URINE ORDERABLES Final Re sult [facility]
[address] [place] [address], * (ABNORMAL) POC Glucose, Blood (08/27/2024 11:50 AM EDT) [facility] Glucose 150(A) 70 - 130 mg/dL Lot Number [id number] Expiration Date 02/08/25 Blood 08/27/2024 11:5 0 AM EDT Ellis Chang MD POINT OF CARE TEST ORDERA BLES Final Result * LABS SCANNED (07/25/2024) [facility] BLOOD ORDERABLES Final Re sult * POC Glycosylated Hemoglobin (Hb A1C) (09/12/2022 12:16 PM EDT) [facility] Hemoglobin A1C 9.6 % [facility] Lot Number [id number] [facility] Expiration Date 05/07/24 [facility] Blood 09/12/2022 12:1 6 PM EDT Ellis Chang MD POINT OF CARE TEST ORDERA BLES Final Result [facility]
[address] [place] [address], * (ABNORMAL) Lipid Panel With / Chol / HDL Ratio (02/21/2022 9:07 AM EST) [facility] Total Cholesterol 176 0 - 200 [...] 02/23/2022 3:07 AM EST Performed at: [address] [id number] Branch Service Specialist: Stew Greenberg MD, Phone: [phone] Patient Fasting: Y us Elgin Logan MD LAB BLOOD ORDERABLES Final Resu lt Performing Organization Address City/[facility]/ZIP Co de Phone Number [facility] ([facility]) [address] [place] [address], [facility] [address] [place] [address], * Hepatitis C Antibody (12/14/2017 10:15 AM EDT) [facility] Hep C Virus Ab <0.1 0.0 - 0.9 s/co ratio [facility] Comment: Negative: < 0.8 Indeterminate: 0.8 - 0.9 Positive: > 0.9 The CDC recommends that a positive HCV antibody result be followed up with a HCV Nucleic Acid Amplification test (124607). Blood 12/14/2017 10:1 5 AM EDT 12/14/2017 Narrative [facility] ([facility]) - 12/15/2017 7:11 AM EDT Performed at: 02 - [facility] [address] [place] [id number] Branch Service Specialist: Scooby Cevallos PhD, Phone: [phone] Patient Fasting: Y us Elgin Logan MD LAB BLOOD ORDERABLES Final Resu lt Performing Organization Address [facility] Co de Phone Number [facility] [address] [place] [address], [facility] [address] [place] [address], * SCANNED - COLONOSCOPY (02/22/2016) us Elgin Logan MD CHART REVIEW TABS Final Resu lt from Last 3 Months or Most Recently Relevant to Health Maintenance Insurance [employer] MEDICARE ADVANTAGE PPO Care Teams Leather Goods I Assembler Relationship Specialty Start Date End Date Solo Lema DO [address] [place] [address] [place] [address] PCP - General Internal Medicine 08/27/24
--- OUTSIDE RECORDS SUMMARY | 2024-09-30 14:18 | XMS_ITS | Encounter Summary ---
Author Organization Healthcare Address [address] [place] [address] Care Team Providers Care Content Coordinator Name Role Phone Harvey Milan MD Primary Care Provider [phone] Encounter Details Date Type Department Care Team (Late st Contact Info) Description 09/26/2024 Orders Only External Location [address] [place] [address] Provider, External Social History Tobacco Use Types [...] on filedocumented in this encounter Care Teams Content Coordinator Relationship Specialty Start Date End Date Harvey Milan MD [address] [place] [address] [address] [place] [address] PCP - General 07/09/20 documented as of this encounter
--- OUTSIDE RECORDS SUMMARY | 2024-09-30 14:18 | XMS_ITS | Encounter Summary ---
Author Organization [employer] ([place], [place], [place], [place]) Address [address] [place] [address] Care Team Providers Care Customs Patrol Officer Name Role Phone Elgin Logan MD Primary Care Provider Encounter Details Date Type Department Care Team (Late st Contact Info) Description 10/29/2019 Transcribed Document [facility] [facility] [place] [address] ProviderMarilynn MD [address] [place], [place] [address] Social History Tobacco Use Types Packs/Day Years [...] facility. GRANT Ratliff/cristino Electronically signed by Natty [facility] Conversion Resource Manager Forester Cerner at 06/13/2022 8:50 AM CDT documented in this encounter Plan of Treatment Not on file documented as of this encounter Visit Diagnoses Not on filedocumented in this encounter Care Teams Customs Patrol Officer Relationship Specialty Start Date End Date Elgin Logan MD [address] [place] [address] PCP - General Family Medicine 03/16/22 documented as of this encounter
--- OUTSIDE RECORDS SUMMARY | 2024-09-30 14:19 | XMS_ITS | Encounter Summary ---
Author Organization Healthcare Address [address] [place] [address] Care Team Providers Care Medical Insurance Claims Processor Name Role Phone Harvey Milan MD Primary Care Provider [phone] Encounter Details Date Type Department Care Team (Late st Contact Info) Description 09/26/2024 Orders Only External Location [address] [place] [address] Provider, External Social History Tobacco Use Types [...] Procedure Name Priority Date/Time Associated Diagnosis Comments XR OUTSIDE IMAGES 09/26/2024 7:36 AM EDT documented in this encounter Results * XR OUTSIDE IMAGES (09/26/2024 7:36 AM EDT) Anatomical Region Laterality Modality Radiographic Peggy ging 09/26/2024 7:36 AM EDT us External Provider IMG XR PROCEDURES Final Result documented in this encounter Visit Diagnoses Not on filedocumented in this encounter Care Teams Medical Insurance Claims Processor Relationship Specialty Start Date End Date Harvey Milan MD [address] [place] [address] [address] [place] [address] PCP - General 07/09/20 documented as of this encounter
--- OUTSIDE RECORDS SUMMARY | 2024-09-30 14:19 | XMS_ITS | Encounter Summary ---
Author Organization Healthcare Address [address] [place] [address] Care Team Providers Care Cabinet Installer Name Role Phone Harvey Milan MD Primary Care Provider [phone] Encounter Details Date Type Department Care Team (Late st Contact Info) Description 09/26/2024 Orders Only External Location [address] [place] [address] Provider, External Social History Tobacco Use Types [...] Associated Diagnosis Comments XR OUTSIDE IMAGES 09/26/2024 7:24 AM EDT documented in this encounter Results * XR OUTSIDE IMAGES (09/26/2024 7:24 AM EDT) Anatomical Region Laterality Modality Radiographic Peggy ging 09/26/2024 7:24 AM EDT us External Provider IMG XR PROCEDURES Final Result documented in this encounter Visit Diagnoses Not on filedocumented in this encounter Care Teams Cabinet Installer Relationship Specialty Start Date End Date Harvey Milan MD [address] [place] [address] [address] [place] [address] PCP - General 07/09/20 documented as of this encounter
--- OUTSIDE RECORDS SUMMARY | 2024-09-30 14:19 | XMS_ITS | Encounter Summary ---
Author Organization [employer] ([place], [place], [place], [place]) Address [address] [place] [address] Care Team Providers Care Manager Supply Name Role Phone Elgin Logan MD Primary Care Provider Encounter Details Date Type Department Care Team (Late st Contact Info) Description 11/05/2018 Transcribed Document [facility] [place] Family [facility] [address] ProviderMarilynn MD [address] [place], [place] [address] Social History Tobacco Use Types Packs/Day Years [...] Veras M.D. YANICK/quin Electronically signed by Natty, [facility] Conversion Pattern Changer And Repairer Cerner at 06/13/2022 8:50 AM CDT documented in this encounter Plan of Treatment Not on file documented as of this encounter Visit Diagnoses Not on filedocumented in this encounter Care Teams Manager Supply Relationship Specialty Start Date End Date Elgin Logan MD [address] [place] [address] PCP - General Family Medicine 03/16/22 documented as of this encounter
--- OUTSIDE RECORDS SUMMARY | 2024-09-30 14:19 | XMS_ITS | Referral Summary ---
Author Organization [employer] ([place], [place], [place], [place]) Address [address] [place] [address] Care Team Providers Care Tunnel Elastic Operator Zigzag Name Role Phone Elgin Logan MD Primary Care Provider [phone] Allergies No known active allergies Medications desmopressin [...] 03/10/19 23 Active naloxone (NARCAN) 4 mg/actuation [place] SMARTSIG:Both Nares 01/11/20 22 Active semaglutide (Ozempic) [...] Date Vlad rded Speak language other than Indian at home Not on file 03/11/2023 Want [...] [employer] MEDICARE PPO Care Teams Tunnel Elastic Operator Zigzag Relationship Specialty Start Date End Date Elgin Logan MD [address] [place] [address] PCP - General Family Medicine 03/16/22
--- OUTSIDE RECORDS SUMMARY | 2024-09-30 14:19 | XMS_ITS | Encounter Summary ---
Author Organization [employer] ([place], [place], [place], [place]) Address [address] [place] [address] Care Team Providers Care Second Officer Name Role Phone Elgin Logan MD Primary Care Provider Encounter Details Date Type Department Care Team (Late st Contact Info) Description 12/26/[address] [facility] [place] Family [place] [facility] [place] [address] ProviderMarilynn MD [address] [place], [place] [address] Social History Tobacco Use Types Packs/Day Years [...] followup appointment. GRANT Ratliff/quin Electronically signed by [facility] Conversion Masking Machine Feeder Cerner at 06/13/2022 8:54 AM CDT documented in this encounter Plan of Treatment Not on file documented as of this encounter Visit Diagnoses Not on filedocumented in this encounter Care Teams Second Officer Relationship Specialty Start Date End Date Elgin Logan MD [address] [place] [address] PCP - General Family Medicine 03/16/22 documented as of this encounter
== END 2024-09-30 23:59 | disposition home or self-care (01) ==
LOC: RAD 14:15
PROVIDERS: PCP Internal Medicine; Visit Provider Physician Assistant
DX: R93.7 Abnormal findings on diagnostic imaging of other parts of musculoskeletal system (principal)
CPT/HCPCS: 73030

== ENCOUNTER 2024-10-28 14:16 | Outpatient (CLI) | payer MEDICARE, SELFPAY ==
--- NOTE | 2024-10-28 14:17 | XR_ITS ---
FINAL REPORT CLINICAL HISTORY: right shoulder pain COMPARISON: None FINDINGS: RIGHT SHOULDER 2 views demonstrate no acute fracture or dislocation. There is sclerotic change of the greater tuberosity of the proximal humerus. A tendon anchor is noted in the humeral head. There has been either partial resection or shaving of the undersurface of the acromion process. The glenohumeral and acromioclavicular joints are intact. The soft tissues are unremarkable. IMPRESSION: Postoperative changes are present in the greater tuberosity of the proximal humerus and involving the undersurface of the acromion process as described. The glenohumeral and acromioclavicular joint spaces are preserved. Reviewed, Interpreted and Dictated by Jose Palma MD Transcribed by Aliza Rowe Authenticated and [facility]
--- OUTSIDE RECORDS SUMMARY | 2024-10-28 14:19 | XMS_ITS | Encounter Summary ---
Author Organization [employer] ([place], [place], [place], [place]) Address [address] [place] [address] Care Team Providers Care Email Producer Name Role Phone Elgin Logan MD Primary Care Provider Encounter Details Date Type Department Care Team (Late st Contact Info) Description 07/10/2019 Transcribed Document [facility] [place] [facility] [place] [address] ProviderMarilynn MD [address] [place], [place] [address] Social History Tobacco Use Types Packs/Day Years [...] In 2018 there was a decision from [employer] to not pay for his medications any more. This went before a Outsole Flexer and the ruling was in favor of [...] also reported that him being cognisant that [employer] was footing the bill for this individual we had not looked to involve advanced treatment options. The Outsole Flexer ruled in our favor and as such we have continued to take care of Mr. Womack in that regard. However, recently another issue arose with [employer] where they again stated they would not pay for his medications. It was my position that the previous ruling from 2018 still stood as nothing really had changed since that time. Unfortunately it has come to pass that [employer] is now wanting us to wean him [...] Corona continues to play games with Mr. Womcak's [facility] care then I would recommend we [...] no sense and the fact that any Outsole Flexer who would not understand this indicates he needs help with basic math. Ian Gonsalves II, M.D. GUNNER/merari Electronically signed by Natty [facility] Conversion Odd Ticket Clerk Cerner at 06/13/2022 9:07 AM CDT documented in this encounter Plan of Treatment Not on file documented as of this encounter Visit Diagnoses Not on filedocumented in this encounter Care Teams Email Producer Relationship Specialty Start Date End Date Elgin Logan MD [address] [place] [address] PCP - General Family Medicine 03/16/22 documented as of this encounter
--- OUTSIDE RECORDS SUMMARY | 2024-10-28 14:19 | XMS_ITS | Clinical Summary ---
Author Organization [employer] ([place], [place], [place], [place]) Address [address] [place] [address] Care Team Providers Care Logistics Director Name Role Phone Elgin Logan MD Primary Care Provider [phone] Allergies No known active allergies Medications desmopressin [...] 03/10/19 23 Active naloxone (NARCAN) 4 mg/actuation [place] SMARTSIG:Both Nares 01/11/20 22 Active semaglutide (Ozempic) [...] Date Vlad rded Speak language other than Czech at home Not on file 03/11/2023 Want [...] (1 - 1-dose 75+ series) 2029 Insurance [facility] COMMERCIAL [facility] MEDICARE PPO Care Teams Logistics Director Relationship Specialty Start Date End Date Elgin Logan MD [address] [facility] [place] [address] PCP - General Family Medicine 03/16/22
--- OUTSIDE RECORDS SUMMARY | 2024-10-28 14:19 | XMS_ITS | Encounter Summary ---
[facility] Organization [facility] Address [address] [place] [address] Care Team Providers Care Sap Business Objects Developer Name Role Phone Wyatt Lemaew Ernie BENTLEY Primary Care Provider + Encounter Details Date Type Department Care Team (Late st Contact Info) Description 09/01/2024 Telephone [facility] END[facility]CR[facility] [address] [address] Ellis Chang MD [address] [address] Social History Tobacco Use Types [...] Rep - 09/01/2024 12:54 PM EDT [facility] received a fax that requires your attention. The document has been indexed to the patient???s chart for your review. Reason for sending: MEDICAL RECORDS REQUESTED Documents Description: LABS 07-25-2024 AND 07-29-2024 Name of Sender: [facility] [address] [place] [address] PHONE [phone] FAX [phone] Date Indexed: 09-01-2024 Notes (if needed): INDEXED UNDER LABS. documented in this encounter Plan of Treatment Upcoming Encounters Date Type Department Care Team (Late st Contact Info) Description 04/29/2025 9:30 AM EST Office Visit [facility] END[facility] [address] [address] Ellis Chang MD [address] [address] documented as of this encounter Visit Diagnoses Not on filedocumented in this encounter Care Teams Sap Business Objects Developer Relationship Specialty Start Date End Date Solo Lema DO [address] [place] [facility] [id number] PCP - General Internal Medicine 08/27/24 documented as of this encounter
--- OUTSIDE RECORDS SUMMARY | 2024-10-28 14:19 | XMS_ITS | Encounter Summary ---
Author Organization Healthcare Address [address] [place] [address] Care Team Providers Care On Call Name Role Phone Harvey Milan MD Primary Care Provider Encounter Details Date Type Department Care Team (Late st Contact Info) Description 09/26/2024 Orders Only External Location [address] [place] [address] Provider, External Social History Tobacco Use Types [...] on filedocumented in this encounter Care Teams On Call Relationship Specialty Start Date End Date Harvey Milan MD [address] [place] [address] [address] [place] [address] PCP - General 07/09/20 documented as of this encounter
--- OUTSIDE RECORDS SUMMARY | 2024-10-28 14:19 | XMS_ITS | Encounter Summary ---
Author Organization [employer] ([place], [place], [place], [place]) Address [address] [place] [address] Care Team Providers Care Chemistry Associate Name Role Phone Elgin Logan MD Primary Care Provider Encounter Details Date Type Department Care Team (Late st Contact Info) Description 04/28/2019 Transcribed Document [facility] [place] Family [facility] [place] [address] ProviderMarilynn MD [address] [place], [place] [address] Social History Tobacco Use Types Packs/Day Years Used Date Smoking Tobacco: Never Assessed Sex and Gender Information Value Date Recorded Sex Assigned at Not on file Legal Sex Male 3:24 PM CDT Gender Identity Not on file Sexual Orientation Not on file documented as of this encounter Miscellaneous Notes * Cerner Conversion Note - Marilynn ProviderMD - 04/28/2019 1:30 PM HOUSE DESIGNER Patient: ISIDRO WOMACK Age: 63 Years Sex: [...] radiating, numbness/tingling, dull and sharp. He takes ycqi-[id number]-[id number] medications but did not specify. He has [...] PLAN: I have received a letter from [employer] that they were no longer going [...] not so I have told him to call or contact [employer] as it was their order. If he could provide documentation that they would still cover it we would change it. He has an understanding of the plan. I am going to have him see Dr. Gonsalves at his next visit because he wanted to discuss this further. Tania Veras M.D. YANICK/quin Electronically signed by Natty [facility] Conversion Air Gun Operator Cerner at 06/13/2022 9:12 AM CDT documented in this encounter Plan of Treatment Not on file documented as of this encounter Visit Diagnoses Not on filedocumented in this encounter Care Teams Chemistry Associate Relationship Specialty Start Date End Date Elgin Logan MD [address] [place] [address] PCP - General Family Medicine 03/16/22 documented as of this encounter
--- OUTSIDE RECORDS SUMMARY | 2024-10-28 14:19 | XMS_ITS | Encounter Summary ---
Author Organization [employer] ([place], [place], [place], [place]) Address [address] [place] [address] Care Team Providers Care Computer Assistant Name Role Phone Elgin Logan MD Primary Care Provider Encounter Details Date Type Department Care Team (Late st Contact Info) Description 05/17/2020 Transcribed Document [facility] [place] [facility] [place] [address] ProviderMarilynn MD [address] [place], [place] [address] Social History Tobacco Use Types Packs/Day Years Used Date Smoking Tobacco: Never Assessed Sex and Gender Information Value Date Recorded Sex Assigned at Not on file Legal Sex Male 3:24 PM CDT Gender Identity Not on file Sexual Orientation Not on file documented as of this encounter Miscellaneous Notes * Cerner Conversion Note - Marilynn ProviderMD - 05/17/2020 1:38 PM CDT Patient: [...] on filedocumented in this encounter Care Teams Computer Assistant Relationship Specialty Start Date End Date Elgin Logan MD [address] [place] [address] PCP - General Family Medicine 03/16/22 documented as of this encounter
--- OUTSIDE RECORDS SUMMARY | 2024-10-28 14:19 | XMS_ITS | Encounter Summary ---
Author Organization Healthcare Address [address] [place] [address] Care Team Providers Care Industrial Cleaning Technician Name Role Phone Harvey Milan MD Primary Care Provider [phone] Encounter Details Date Type Department Care Team (Late st Contact Info) Description 09/26/2024 Orders Only External Location [address] [place] [address] Provider, External Social History Tobacco Use Types [...] on filedocumented in this encounter Care Teams Industrial Cleaning Technician Relationship Specialty Start Date End Date Harvey Milan MD [address] [place] [address] [address] [place] [address] PCP - General 07/09/20 documented as of this encounter
--- OUTSIDE RECORDS SUMMARY | 2024-10-28 14:19 | XMS_ITS | Encounter Summary ---
Author Organization Healthcare Address [address] [place] [address] Care Team Providers Care Unarmed Security Guard Name Role Phone Harvey Milan MD Primary Care Provider [phone] Encounter Details Date Type Department Care Team (Late st Contact Info) Description 09/26/2024 Orders Only External Location [address] [place] [address] Provider, External Social History Tobacco Use Types [...] on filedocumented in this encounter Care Teams Unarmed Security Guard Relationship Specialty Start Date End Date Harvey Milan MD [address] [place] [address] [address] [place] [address] PCP - General 07/09/20 documented as of this encounter
--- OUTSIDE RECORDS SUMMARY | 2024-10-28 14:19 | XMS_ITS | Encounter Summary ---
Author Organization [employer] ([place], [place], [place], [place]) Address [address] [place] [address] Care Team Providers Care Corporate Concierge Name Role Phone Elgin Logan MD Primary Care Provider Encounter Details Date Type Department Care Team (Late st Contact Info) Description 01/04/2020 Transcribed Document [facility] [place] [address] ProviderMarilynn MD [address] [place], [place] [address] Social History Tobacco Use Types Packs/Day Years Used Date Smoking Tobacco: Never Assessed Sex and Gender Information Value Date Recorded Sex Assigned at Not on file Legal Sex Male 3:24 PM CDT Gender Identity Not on file Sexual Orientation Not on file documented as of this encounter Miscellaneous Notes * Cerner Conversion Note - Marilynn ProviderMD - 01/04/2020 11:27 AM RETIREMENT MANAGER Patient: ISIDRO WOMACK Age: 64 Years Sex: [...] Veras M.D. YANICK/ac Electronically signed by Natty, [facility] Conversion Chaser Apprentice Cerner at 06/13/2022 8:46 AM CDT documented in this encounter Plan of Treatment Not on file documented as of this encounter Visit Diagnoses Not on filedocumented in this encounter Care Teams Corporate Concierge Relationship Specialty Start Date End Date Elgin Logan MD [address] [place] [address] PCP - General Family Medicine 03/16/22 documented as of this encounter
--- OUTSIDE RECORDS SUMMARY | 2024-10-28 14:19 | XMS_ITS | Encounter Summary ---
Author Organization [employer] ([place], [place], [place], [place]) Address [address] [place] [address] Care Team Providers Care Microcomputer Technician Name Role Phone Elgin Logan MD Primary Care Provider [phone] Encounter Details Date Type Department Care Team (Late st Contact Info) Description 10/29/2019 Transcribed Document [facility] [place] [facility] [place] [address] ProviderMarilynn MD [address] [place], [place] [address] Social History Tobacco Use Types Packs/Day Years [...] facility. GRANT Ratliff/cristino Electronically signed by Natty [facility] Conversion Psychiatric Nursing Assistant Cerner at 06/13/2022 8:50 AM CDT documented in this encounter Plan of Treatment Not on file documented as of this encounter Visit Diagnoses Not on filedocumented in this encounter Care Teams Microcomputer Technician Relationship Specialty Start Date End Date Elgin Logan MD [address] [place] [address] PCP - General Family Medicine 03/16/22 documented as of this encounter
--- OUTSIDE RECORDS SUMMARY | 2024-10-28 14:19 | XMS_ITS | Encounter Summary ---
Author Organization [employer] ([place], [place], [place], [place]) Address [address] [place] [address] Care Team Providers Care Car Wiper Name Role Phone Elgin Logan MD Primary Care Provider Encounter Details Date Type Department Care Team (Late st Contact Info) Description 09/03/2019 Transcribed Document [facility] [place] [facility] [place] [address] ProviderMarilynn MD [address] [place], [place] [address] Social History Tobacco Use Types Packs/Day Years [...] follow-up appointment. GRANT Ratliff/cristino Electronically signed by [facility], [facility] Conversion Refrigeration Tech Cerner at 06/13/2022 9:02 AM CDT documented in this encounter Plan of Treatment Not on file documented as of this encounter Visit Diagnoses Not on filedocumented in this encounter Care Teams Car Wiper Relationship Specialty Start Date End Date Elgin Logan MD [address] [place] [address] PCP - General Family Medicine 03/16/22 documented as of this encounter
--- OUTSIDE RECORDS SUMMARY | 2024-10-28 14:19 | XMS_ITS | Encounter Summary ---
Author Organization [employer] ([place], [place], [place], [place]) Address [address] [place] [address] Care Team Providers Care Vice President Regulatory Name Role Phone Elgin Logan MD Primary Care Provider Encounter Details Date Type Department Care Team (Late st Contact Info) Description 03/05/2020 Transcribed Document [facility] [place] [facility] [place] [address] ProviderMarilynn MD [address] [place], [place] [address]391 Social History Tobacco Use Types Packs/Day Years Used Date Smoking Tobacco: Never Assessed Sex and Gender Information Value Date Recorded Sex Assigned at Not on file Legal Sex Male 3:24 PM CDT Gender Identity Not on file Sexual Orientation Not on file documented as of this encounter Miscellaneous Notes * Cerner Conversion Note - Historical ProviderMD - 03/05/2020 3:30 PM GENERAL ENGINEER Patient: ISIDRO WOMACK Age: 64 Years Sex: [...] He had recently seen an administrative low mailing machine assistant who had decided to discontinue his Voltaren Gel as well as having the patient return to the clinic every three months. He tried to explain to the mailing machine assistant about our current requirements to come back [...] on filedocumented in this encounter Care Teams Vice President Regulatory Relationship Specialty Start Date End Date Elgin Logan MD [address] [place] [address] PCP - General Family Medicine 03/16/22 documented as of this encounter
--- OUTSIDE RECORDS SUMMARY | 2024-10-28 14:19 | XMS_ITS | Encounter Summary ---
Author Organization [employer] ([place], [place], [place], [place]) Address [address] [place] [address] Care Team Providers Care Hands Parter Name Role Phone Elgin Logan MD Primary Care Provider Encounter Details Date Type Department Care Team (Late st Contact Info) Description 03/04/2019 Transcribed Document [facility] [place] [address] ProviderMarilynn MD [address] [place], [place] [address] Social History Tobacco Use Types Packs/Day Years Used Date Smoking Tobacco: Never Assessed Sex and Gender Information Value Date Recorded Sex Assigned at Not on file Legal Sex Male 3:24 PM CDT Gender Identity Not on file Sexual Orientation Not on file documented as of this encounter Miscellaneous Notes * Cerner Conversion Note - Historical ProviderMD - 03/04/2019 2:48 PM RN MDS COORDINATOR Patient: ISIDRO WOMACK Age: 63 Years Sex: [...] I am going to [facility] for pain and [...] on filedocumented in this encounter Care Teams Hands Parter Relationship Specialty Start Date End Date Elgin Logan MD [address] [place] [address] PCP - General Family Medicine 03/16/22 documented as of this encounter
--- OUTSIDE RECORDS SUMMARY | 2024-10-28 14:19 | XMS_ITS | Clinical Summary ---
Author Organization [facility] Address [address] [place] [address] Care Team Providers Care Motor Brakeman Name Role Phone Harvey Milan MD Primary Care Provider [phone] Encounters Date Type Department Care Team Description 09/26/2024 Orders Only External Location [address] [place] [address] Provider, External 09/26/2024 Orders Only External Location [address] [place] [address] Provider, External 09/26/2024 Orders Only External Location [address] [place] [address] Provider, External 09/26/2024 Orders Only External Location [address] [place] [address] Provider, External 09/26/2024 Orders Only External Location [address] [place] [address] Provider, External 09/26/2024 Orders Only External Location [address] [place] [address] Provider, External 09/26/2024 Orders Only External Location [address] [place] [address] Provider, External 09/26/2024 Orders Only External Location [address] [place] [address] Provider, External 09/26/2024 Orders Only External Location [address] [place] [address] Provider, External 09/26/2024 Orders Only External Location [address] [place] [address] Provider, External from Last 3 Months Social [...] Result from Last 3 Months Care Teams Motor Brakeman Relationship Specialty Start Date End Date Harvey Milan MD [address] [place] [address] [address] [place] [address] PCP - General 07/09/20
--- OUTSIDE RECORDS SUMMARY | 2024-10-28 14:19 | XMS_ITS | Encounter Summary ---
[facility] Organization [facility] Address [address] [place] [address] Care Team Providers Care Psych Arnp Name Role Phone Solo Lema DO Primary Care Provider + Encounter Details Date Type Department Care Team (Late st Contact Info) Description 10/06/2024 Telephone [facility] END[facility]CR[facility] [address] [address] Ellis Chang MD [address] [address] Social History Tobacco Use Types [...] encounter Miscellaneous Notes * Telephone Encounter - Torie Hdz MA - 10/06/2024 11:24 AM EDT I called the pt no answer. I left a voicemail to return my call. documented in this encounter Plan of Treatment Upcoming Encounters Date Type Department Care Team (Late st Contact Info) Description 04/29/2025 9:30 AM EST Office Visit [facility] ENDOCR[facility]OLOG[facility] [address] [address] Ellis Chang MD [address] [address] documented as of this encounter Visit Diagnoses Not on filedocumented in this encounter Care Teams Psych Arnp Relationship Specialty Start Date End Date Solo Lema DO [address] [facility] [address] [place] [place] [address] PCP - General Internal Medicine 08/27/24 documented as of this encounter
--- OUTSIDE RECORDS SUMMARY | 2024-10-28 14:19 | XMS_ITS | Encounter Summary ---
Author Organization Healthcare Address [address] [place] [address] Care Team Providers Care Activity Specialist Name Role Phone Harvey Milan MD Primary Care Provider Encounter Details Date Type Department Care Team (Late st Contact Info) Description 09/26/2024 Orders Only External Location [address] [place] [address] Provider, External Social History Tobacco Use Types [...] on filedocumented in this encounter Care Teams Activity Specialist Relationship Specialty Start Date End Date Harvey Milan MD [address] [place] [address] [address] [place] [address] PCP - General 07/09/20 documented as of this encounter
--- OUTSIDE RECORDS SUMMARY | 2024-10-28 14:19 | XMS_ITS | Clinical Summary ---
Author Organization [facility] Address [address] [place] [address] Care Team Providers Care Network/Telecom Engineer Name Role Phone Solo Lema Ernie Primary [...] 09/12/19 23 Active Insulin Pen Needle (Pen Devers) 32G X 4 MM misc 1 each Daily. 100 each 3 09/13/19 23 Active desmopressin (DDAVP) 0.1 MG tabletIndicati ons:Diabetes insipidus TAKE 1 TABLET BY MOUTH TWICE A DAY 180 tablet 1 08/24/19 24 Active Continuous Glucose Sensor (Dexcom G7 Sensor) [facility] Use 1 each Every 10 (Ten) Days. [...] Diabetes will be reassessed in 6 months. [employer] G7 CGM was downloaded today. Data was [...] Encounters Date Type Department Care Team Description 10/06/2024 Telephone [facility] ENDOCRINOLOGY [address] [place] [address] Ellis Chang MD 09/01/2024 Telephone [facility] ENDOCRINOLOGY [address] [place] [address] Ellis Chang MD 08/28/2024 Results Follow-Up [facility] END[facility]CR[facility] [address] [place] [address] Ellis Chang MD 08/27/2024 11:45 AM EDT Office Visit [facility] ENDOCRINOLOGY [address] [place] [address] Ellis Chang MD Type 2 diabetes mellitus with hyperglycemia, with long-term current use of insulin (Primary Dx); Essential hypertension; Mixed hyperlipidemia 08/27/2024 Travel from Last 3 Months Immunizations Immunization Administration [...] Visit [facility] END[facility]CR[facility] [address] [address] Ellis Chang MD [address] [address] Health Maintenance Due Date Last Done Comments [...] with long-term current use of insulin POCT GLYCOSYLATED HEMOGLOBIN (HGB A1C) Routine 09/12/2022 [...] Urine, Clean Catch (08/27/2024 12:16 PM EDT) Pathologist [facility] Microalbumin/C reatinine Ratio 12.4 0.0 - 29.0 mg/g 08/28/2024 12:30 AM EDT [facility] Creatinine, Urine 137.3 mg/dL 08/28/2024 12:30 AM EDT [facility] Microalbumin, Urine 1.7 mg/dL 08/28/2024 12:30 AM EDT [facility] Urine Urine specimen obtained by clean catch procedure / Unknown Collection / Unknown 08/27/2024 12:16 PM EDT 08/27/2024 12:16 PM EDT Ellis Chang MD URINE ORDERABLES Final Re sult [facility]
[address] [place] [address], * (ABNORMAL) POC Glucose, Blood (08/27/2024 11:50 AM EDT) [facility] Glucose 150(A) 70 - 130 mg/dL Lot Number [id number] Expiration Date 02/08/25 Blood 08/27/2024 11:5 0 AM EDT Ellis Chang MD POINT OF CARE TEST ORDERA BLES Final Result * POC Glycosylated Hemoglobin (Hb A1C) (09/12/2022 12:16 PM EDT) Pathologist [facility] Hemoglobin A1C 9.6 % [facility] Lot Number [id number] [facility] Expiration Date 05/07/24 [facility] Blood 09/12/2022 12:1 6 PM EDT Ellis Chang MD POINT OF CARE TEST ORDERA BLES Final Result [facility]
[address] [place] [address], * (ABNORMAL) Lipid Panel With / Chol / HDL Ratio (02/21/2022 9:07 AM EST) Pathologist [facility] Total Cholesterol 176 0 - 200 mg/dL [...] 02/23/2022 3:07 AM EST Performed at: 01 - [address] [id number] Claims Vice President: Stew Greenberg MD, Phone: [phone] Patient Fasting: Y Elgin Logan MD LAB BLOOD ORDERABLES Final Resu lt Performing Organization Address City/[facility]/ZIP Co de Phone Number [facility] [address] [place] [address], [facility] [address] [place] [address], * Hepatitis C Antibody (12/14/2017 10:15 AM EDT) Hep C Virus Ab <0.1 0.0 - 0.9 s/co ratio [facility] Comment: Negative: < 0.8 Indeterminate: 0.8 - 0.9 Positive: > 0.9 The CDC recommends that a positive HCV antibody result be followed up with a HCV Nucleic Acid Amplification test ([id number]). Blood 12/14/2017 10:1 5 AM EDT 12/14/2017 N[facility]ative [facility] - 12/15/2017 7:11 AM EDT Performed at: 02 - [facility] [address] [place] [id number] Claims Vice President: Scooby Cevallos PhD, Phone: [phone] Patient Fasting: Y Elgin Logan MD LAB BLOOD ORDERABLES Final Resu lt Performing Organization Address [facility] Co de Phone Number [facility] ([facility]) [address] [place] [address], [facility] [address] [place] [address], * SCANNED - COLONOSCOPY (02/22/2016) Elgin Logan MD CHART REVIEW TABS Final Resu lt from Last 3 Months or Most Recently Relevant to Health Maintenance Insurance [employer] MEDICARE ADVANTAGE PPO Care Teams Network/Telecom Engineer Relationship Specialty Start Date End Date Solo Lema DO [address] [place] [address] PCP - General Internal Medicine 08/27/24
--- OUTSIDE RECORDS SUMMARY | 2024-10-28 14:19 | XMS_ITS | Encounter Summary ---
Author Organization Healthcare Address [address] [place] [address] Care Team Providers Care Moshgiach Name Role Phone Harvey Milan MD Primary Care Provider [phone] Encounter Details Date Type Department Care Team (Late st Contact Info) Description 09/26/2024 Orders Only External Location [address] [place] [address] Provider, External Social History Tobacco Use Types [...] on filedocumented in this encounter Care Teams Moshgiach Relationship Specialty Start Date End Date Harvey Milan MD [address] [place] [address] [address] [place] [address] PCP - General 07/09/20 documented as of this encounter
--- OUTSIDE RECORDS SUMMARY | 2024-10-28 14:19 | XMS_ITS ---
Author Organization Unknown Vital Signs BpStanding BpSitting BpSupine Date Temperature HeartRate Weight Hei ght Spo2 Respiration Bmi HeadCircumference FieldCount TimeRecorded NeckCircumferen ce WaistCircumference Pulse 124/80 08/19 00:00 :00 97.8 6,0 3 09/21/2024 10:45:00 130/82 07/30 00:00 :00 98.4 222,0 6,0 95 30.1 1 6 09/21/2024 11:30:00
--- OUTSIDE RECORDS SUMMARY | 2024-10-28 14:19 | XMS_ITS | Encounter Summary ---
Author Organization Healthcare Address [address] [place] [address] Care Team Providers Care Loan Processing Supervisor Name Role Phone Harvey Milan MD Primary Care Provider [phone] Encounter Details Date Type Department Care Team (Late st Contact Info) Description 09/26/2024 Orders Only External Location [address] [place] [address] Provider, External Social History Tobacco Use Types [...] on filedocumented in this encounter Care Teams Loan Processing Supervisor Relationship Specialty Start Date End Date Harvey Milan MD [address] [place] [address] [address] [place] [address] PCP - General 07/09/20 documented as of this encounter
--- OUTSIDE RECORDS SUMMARY | 2024-10-28 14:20 | XMS_ITS | Referral Summary ---
Author Organization [employer] ([place], [place], [place], [place]) Address [address] [place] [address] Care Team Providers Care Collision Mechanic Name Role Phone Elgin Logan MD Primary Care Provider [phone] Allergies No known active allergies Medications desmopressin [...] 03/10/19 23 Active naloxone (NARCAN) 4 mg/actuation Fitzpatrick SMARTSIG:Both Nares 01/11/20 22 Active semaglutide (Ozempic) [...] Date Vlad rded Speak language other than Emirati at home Not on file 03/11/2023 Want [...] [employer] MEDICARE PPO Care Teams Collision Mechanic Relationship Specialty Start Date End Date Elgin Logan MD [address] [place] [address] PCP - General Family Medicine 03/16/22
--- OUTSIDE RECORDS SUMMARY | 2024-10-28 14:20 | XMS_ITS | Encounter Summary ---
Author Organization Healthcare Address [address] [place] [address] Care Team Providers Care Manager Code Name Role Phone Harvey Milan MD Primary Care Provider [phone] Encounter Details Date Type Department Care Team (Late st Contact Info) Description 09/26/2024 Orders Only External Location [address] [place] [address] Provider, External Social History Tobacco Use Types [...] filedocumented in this encounter Care Teams Manager Code Relationship Specialty Start Date End Date Harvey Milan MD [address] [place] [address] [address] [place] [address] PCP - General 07/09/20 documented as of this encounter
--- OUTSIDE RECORDS SUMMARY | 2024-10-28 14:20 | XMS_ITS | Encounter Summary ---
Author Organization Healthcare Address [address] [place] [address] Care Team Providers Care Pediatric Np Name Role Phone Harvey Milan MD Primary Care Provider [phone] Encounter Details Date Type Department Care Team (Late st Contact Info) Description 09/26/2024 Orders Only External Location [address] [place] [address] Provider, External Social History Tobacco Use Types [...] on filedocumented in this encounter Care Teams Pediatric Np Relationship Specialty Start Date End Date Harvey Milan MD [address] [place] [address] [address] [place] [address] PCP - General 07/09/20 documented as of this encounter
--- OUTSIDE RECORDS SUMMARY | 2024-10-28 14:20 | XMS_ITS | Encounter Summary ---
Author Organization [employer] ([place], [place], [place], [place]) Address [address] [place] [address] Care Team Providers Care Fire Prevention Captain Name Role Phone Elgin Logan MD Primary Care Provider Encounter Details Date Type Department Care Team (Late st Contact Info) Description 11/05/2018 Transcribed Document [facility] [place] [facility] [place] [address] ProviderMarilynn MD [address] [place], [place] [address] Social History Tobacco Use Types Packs/Day Years [...] Veras M.D. YANICK/quin Electronically signed by Natty, [facility] Conversion Video Machines Mechanic Cerner at 06/13/2022 8:50 AM CDT documented in this encounter Plan of Treatment Not on file documented as of this encounter Visit Diagnoses Not on filedocumented in this encounter Care Teams Fire Prevention Captain Relationship Specialty Start Date End Date Elgin Logan MD [address] [facility] [place] [address] PCP - General Family Medicine 03/16/22 documented as of this encounter
--- OUTSIDE RECORDS SUMMARY | 2024-10-28 14:20 | XMS_ITS | Encounter Summary ---
Author Organization [employer] ([place], [place], [place], [place]) Address [address] [place] [address] Care Team Providers Care Early Childhood Assistant Name Role Phone Elgin Logan MD Primary Care Provider Encounter Details Date Type Department Care Team (Late st Contact Info) Description 12/26/2018 Transcribed Document [facility] [place] Family Medicine [facility] [place] [address] ProviderMarilynn MD [address] [place], [place] [address] Social History Tobacco Use Types Packs/Day Years [...] followup appointment. GRANT Ratliff/quin Electronically signed by [facility] Conversion Airplane Engineer Cerner at 06/13/2022 8:54 AM CDT documented in this encounter Plan of Treatment Not on file documented as of this encounter Visit Diagnoses Not on filedocumented in this encounter Care Teams Early Childhood Assistant Relationship Specialty Start Date End Date Elgin Logan MD [address] [place] [address] PCP - General Family Medicine 03/16/22 documented as of this encounter
--- OUTSIDE RECORDS SUMMARY | 2024-10-28 14:20 | XMS_ITS | Encounter Summary ---
Author Organization Healthcare Address [address] [place] [address] Care Team Providers Care Movie Machine Operator Name Role Phone Harvey Milan MD Primary Care Provider [phone] Encounter Details Date Type Department Care Team (Late st Contact Info) Description 09/26/2024 Orders Only External Location [address] [place] [address] Provider, External Social History Tobacco Use Types [...] on filedocumented in this encounter Care Teams Movie Machine Operator Relationship Specialty Start Date End Date Harvey Milan MD [address] [place] [address] [address] [place] [address] PCP - General 07/09/20 documented as of this encounter
--- OUTSIDE RECORDS SUMMARY | 2024-10-28 14:20 | XMS_ITS | Encounter Summary ---
Author Organization Healthcare Address [address] [place] [address] Care Team Providers Care City Auditor Name Role Phone Harvey Milan MD Primary Care Provider [phone] Encounter Details Date Type Department Care Team (Late st Contact Info) Description 09/26/2024 Orders Only External Location [address] [place] [address] Provider, External Social History Tobacco Use Types [...] on filedocumented in this encounter Care Teams City Auditor Relationship Specialty Start Date End Date Harvey Milan MD [address] [place] [address] [address] [place] [address] PCP - General 07/09/20 documented as of this encounter
--- NOTE | 2024-10-28 14:53 | XR_ITS ---
FINAL REPORT CLINICAL HISTORY: left knee pain FINDINGS: 3 views of the left knee were obtained. There is no acute fracture or dislocation. The joint spaces are well preserved. There is no acute soft tissue abnormality. IMPRESSION: No acute abnormality identified. Reviewed, Interpreted and Dictated by Jose Palma MD Transcribed by Lydia Donovan Authenticated and [facility]
== END 2024-10-28 23:59 | disposition home or self-care (01) ==
LOC: RAD 14:17
PROVIDERS: PCP Internal Medicine; Visit Provider Physician Assistant
DX: M25.562 Pain in left knee (principal); S42.101A Fracture of unspecified part of scapula, right shoulder, initial encounter for closed fracture; Z98.890 Other specified postprocedural states
CPT/HCPCS: 73030; 73560

== ENCOUNTER 2024-10-29 09:32 | Outpatient (CLI) | payer MEDICARE, SELFPAY ==
[2024-10-29 14:34] LABS: Hematocrit 52.7 % (42.0-52.0); Hemoglobin 17.5 g/dL (14.1-18.0); Immature Granulocytes % 0.7 %; Mean Corpuscular HGB Conc 33.2 g/dL (31.8-35.4); Mean Corpuscular Hemoglobin 29.1 pg (27.0-31.2); Mean Corpuscular Volume 87.7 fl (80-94); Nucleated Red Blood Cells % 0 %; Platelet Count 180 K/mm3 (142-424); Red Blood Count 6.01 M/mm3 (4.60-6.20); Red Cell Distribution Width-SD 44.0 fL; White Blood Count 6.1 K/mm3 (4.8-10.8)
[2024-10-29 15:12] LABS: Hemoglobin A1C 9.5 % (4.0-6.0)
[2024-10-29 16:01] LABS: Albumin Level 4.5 g/dl (3.5-5.0); Chloride 98 mmol/L (98-107); Sodium 136 mmol/L (136-145)
[2024-10-29 16:02] LABS: Potassium 4.5 mmoL/L (3.5-5.1)
[2024-10-29 16:04] LABS: Alanine Aminotransferase 19 U/L (12-78); Albumin/Globulin Ratio 1.5 (1.1-1.8); Alkaline Phosphatase 92 U/L (38-126); Anion Gap 15.5 mEq/L (5-15); Aspartate Amino Transferase 27 U/L (17-59); Bilirubin,Total 0.6 mg/dl (0.2-1.3); Blood Urea Nitrogen 10 mg/dl (9-20); Carbon Dioxide 27 mmol/L (22.0-30.0); Cholesterol 156 mg/dl (140-200); Creatinine,Serum 0.90 mg/dl (0.66-1.25); Estimated Glomerular Filt Rate 83 ml/min (>60); GFR (African American) 101 ML/MIN (>60); Globulin 3.1 g/dL (1.3-3.2); Total Protein,Serum 7.6 g/dl (6.3-8.2); Triglycerides 127 mg/dl (30-150)
[2024-10-29 16:05] LABS: Calcium 9.2 mg/dl (8.4-10.2); Glucose 210 mg/dl (74-100); HDL Cholesterol 31 mg/dl (40-60)
--- OUTSIDE RECORDS SUMMARY | 2024-10-31 09:34 | XMS_ITS | Encounter Summary ---
Author Organization Healthcare Address [address] [place] [address] Care Team Providers Care Combination Operator Name Role Phone Harvey Milan MD Primary Care Provider [phone] Encounter Details Date Type Department Care Team (Late st Contact Info) Description 09/26/2024 Orders Only External Location [address] [place] [address] Provider, External Social History Tobacco Use Types [...] on filedocumented in this encounter Care Teams Combination Operator Relationship Specialty Start Date End Date Harvey Milan MD [address] [place] [address] [address] [place] [address] PCP - General 07/09/20 documented as of this encounter
--- OUTSIDE RECORDS SUMMARY | 2024-10-31 09:34 | XMS_ITS | Encounter Summary ---
Author Organization [employer] ([place], [place], [place], [place]) Address [address] [place] [address] Care Team Providers Care Visualization Developer Name Role Phone Elgin Logan MD Primary Care Provider Encounter Details Date Type Department Care Team (Late st Contact Info) Description 04/28/2019 Transcribed Document [facility] [place] Family [place] [address] ProviderMarilynn MD [address] [place], [place] [address] Social History Tobacco Use Types Packs/Day Years Used Date Smoking Tobacco: Never Assessed Sex and Gender Information Value Date Recorded Sex Assigned at Not on file Legal Sex Male 3:24 PM CDT Gender Identity Not on file Sexual Orientation Not on file documented as of this encounter Miscellaneous Notes * Cerner Conversion Note - Marilynn ProviderMD - 04/28/2019 1:30 PM IMPLEMENTATION MANAGER Patient: ISIDRO WOMACK Age: 63 Years [...] radiating, numbness/tingling, dull and sharp. He takes uont-jwt-ijwbwvu medications but did not specify. He has [...] PLAN: I have received a letter from [employer] that they were no longer going [...] not so I have told him to [employer] as it was their order. If he could provide documentation that they would still cover it we would change it. He has an understanding of the plan. I am going to have him see Dr. Gonsalves at his next visit because he wanted to discuss this further. Tania Veras M.D. YANICK/quin Electronically signed by Natty [facility] Conversion Film Projector Operator Cerner at 06/13/2022 9:12 AM CDT documented in this encounter Plan of Treatment Not on file documented as of this encounter Visit Diagnoses Not on filedocumented in this encounter Care Teams Visualization Developer Relationship Specialty Start Date End Date Elgin Logan MD [address] [place] [address] PCP - General Family Medicine 03/16/22 documented as of this encounter
--- OUTSIDE RECORDS SUMMARY | 2024-10-31 09:34 | XMS_ITS | Encounter Summary ---
Author Organization [employer] ([place], [place], [place], [place]) Address [address] [place] [address] Care Team Providers Care Stripper Black And White Name Role Phone Elgin Logan MD Primary Care Provider [phone] Encounter Details Date Type Department Care Team (Late st Contact Info) Description 05/17/2020 Transcribed Document [facility] [place] [facility] [place] [address] ProviderMarilynn MD [address] [place], [place] [address] Social History Tobacco Use Types Packs/Day Years [...] on filedocumented in this encounter Care Teams Stripper Black And White Relationship Specialty Start Date End Date Elgin Logan MD [address] [place] [address] PCP - General Family Medicine 03/16/22 documented as of this encounter
--- OUTSIDE RECORDS SUMMARY | 2024-10-31 09:34 | XMS_ITS | Encounter Summary ---
Author Organization Healthcare Address [address] [place] [address] Care Team Providers Care Salvage Mechanic Name Role Phone Harvey Milan MD Primary Care Provider Encounter Details Date Type Department Care Team (Late st Contact Info) Description 09/26/2024 Orders Only External Location [address] [place] [address] Provider, External Social History Tobacco Use Types [...] on filedocumented in this encounter Care Teams Salvage Mechanic Relationship Specialty Start Date End Date Harvey Milan MD [address] [place] [address] [address] [place] [address] PCP - General 07/09/20 documented as of this encounter
--- OUTSIDE RECORDS SUMMARY | 2024-10-31 09:34 | XMS_ITS | Encounter Summary ---
Author Organization [employer] ([place], [place], [place], [place]) Address [address] [place] [address] Care Team Providers Care Insights Analyst Name Role Phone Elgin Logan MD Primary Care Provider Encounter Details Date Type Department Care Team (Late st Contact Info) Description 03/05/2020 Transcribed Document [facility] [place] [facility] [place] [address] ProviderMarilynn MD [address] [place], [place] [address] Social History Tobacco Use Types Packs/Day Years Used Date Smoking Tobacco: Never Assessed Sex and Gender Information Value Date Recorded Sex Assigned at Not on file Legal Sex Male 3:24 PM CDT Gender Identity Not on file Sexual Orientation Not on file documented as of this encounter Miscellaneous Notes * Cerner Conversion Note - Historical ProviderMD - 03/05/2020 3:30 PM LIQUOR ESTABLISHMENT MANAGER Patient: ISIDRO WOMACK Age: 64 Years [...] He had recently seen an administrative low tribal judge who had decided to discontinue his Voltaren Gel as well as having the patient return to the clinic every three months. He tried to explain to the tribal judge about our current requirements to come back [...] on filedocumented in this encounter Care Teams Insights Analyst Relationship Specialty Start Date End Date Elgin Logan MD [address] [place] [address] PCP - General Family Medicine 03/16/22 documented as of this encounter
--- OUTSIDE RECORDS SUMMARY | 2024-10-31 09:34 | XMS_ITS | Encounter Summary ---
[facility] Organization [facility] Address [address] [place] [address] Care Team Providers Care Auto Service Station Attendant Name Role Phone Solo Lema DO Primary Care Provider + Encounter Details Date Type Department Care Team (Late st Contact Info) Description 10/06/2024 Telephone [facility] ENDOCRINOLOGY [address] [address] Ellis Chang MD [address] [address] Social History Tobacco Use Types [...] Visit [facility] ENDOCRINOLOGY [address] [address] Ellis Chang MD [address] [address] documented as of this encounter Visit Diagnoses Not on filedocumented in this encounter Care Teams Auto Service Station Attendant Relationship Specialty Start Date End Date Solo Lema DO [address] [facility] [address] [place] [address] PCP - General Internal Medicine 08/27/24 documented as of this encounter
--- OUTSIDE RECORDS SUMMARY | 2024-10-31 09:34 | XMS_ITS | Encounter Summary ---
Author Organization [employer] ([place], [place], [place], [place]) Address [address] [place] [address] Care Team Providers Care Senior Analytic Consultant Name Role Phone Elgin Logan MD Primary Care Provider Encounter Details Date Type Department Care Team (Late st Contact Info) Description 03/04/2019 Transcribed Document [facility] [place] [address] ProviderMarilynn MD [address] [place], [place] 022461 Social History Tobacco Use Types Packs/Day Years Used Date Smoking Tobacco: Never Assessed Sex and Gender Information Value Date Recorded Sex Assigned at Not on file Legal Sex Male 3:24 PM CDT Gender Identity Not on file Sexual Orientation Not on file documented as of this encounter Miscellaneous Notes * Cerner Conversion Note - Historical ProviderMD - 03/04/2019 2:48 PM FRONT DESK LEAD Patient: ISIDRO WOMACK Age: 63 Years Sex: [...] I am going to refer [facility] for pain [...] on filedocumented in this encounter Care Teams Senior Analytic Consultant Relationship Specialty Start Date End Date Elgin Logan MD [address] [facility] [place] [address] PCP - General Family Medicine 03/16/22 documented as of this encounter
--- OUTSIDE RECORDS SUMMARY | 2024-10-31 09:34 | XMS_ITS | Clinical Summary ---
Author Organization [employer] ([place], [place], [place], [place]) Address [address] [place] [address] Care Team Providers Care Firer Watertender Name Role Phone Elgin Logan MD Primary Care Provider [phone] Allergies No known active allergies Medications desmopressin [...] 03/10/19 23 Active naloxone (NARCAN) 4 mg/actuation [place] SMARTSIG:Both Nares 01/11/20 22 Active semaglutide (Ozempic) [...] Date Vlad rded Speak language other than Maori at home Not on file 03/11/2023 Want [...] (1 - 1-dose 75+ series) 2029 Insurance [facility] [employer] [facility] MEDICARE PPO Care Teams Firer Watertender Relationship Specialty Start Date End Date Elgin Logan MD [address] [facility] [place] [address] PCP - General Family Medicine 03/16/22
--- OUTSIDE RECORDS SUMMARY | 2024-10-31 09:34 | XMS_ITS | Clinical Summary ---
[facility] Organization [facility] Address [address] [place] [address] Care Team Providers Care Head Cd Reactor Operator Name Role Phone Solo Lema Ernie [...] 09/12/19 23 Active Insulin Pen Needle (Pen Fay) 32G X 4 MM misc 1 each Daily. 100 each 3 09/13/19 23 Active desmopressin (DDAVP) 0.1 MG tabletIndicati ons:Diabetes insipidus TAKE 1 TABLET BY MOUTH TWICE A DAY 180 tablet 1 08/24/19 24 Active Continuous Glucose Sensor (Dexcom G7 Sensor) [facility] Use 1 each Every 10 (Ten) Days. [...] Diabetes will be reassessed in 6 months. Dex6APT G7 CGM was downloaded today. Data was [...] Type Department Care Team Description 10/06/2024 Telephone [facility] ENDOCRINOLOGY [address] [place] [address] Ellis Chang MD 09/01/2024 Telephone [facility] ENDOCR[facility]Y [address] [place] [address] Ellis Chang MD 08/28/2024 Results Follow-Up [facility] ENDOCRINOLOGY [address] [place] [address] Ellis Chang MD 08/27/2024 11:45 AM EDT Office Visit [facility] ENDOCRINOLOGY [address] [place] [address] Ellis Chang MD Type 2 diabetes mellitus [...] Description 04/29/2025 9:30 AM EST Office Visit [facility] ENDOCRINOLOGY [address] [address] Ellis Chang MD [address] [address] Health Maintenance Due Date Last Done Comments [...] 05/16/2023 11/15/2022, 08/26, 06/07/2022, Additional history exists LIPID PANEL 11/16/2023 11/15/2022, 01/27, 11/14/2021, Additional history exists COVID-19 Vaccine (2024- 6 season) 2024 01/08/2022, 06/10/2021, 12/02/2020, Additional history exists INFLUENZA VACCINE 11/26/2024 12/14/2017 [...] Clean Catch (08/27/2024 12:16 PM EDT) Pathologist [facility] Microalbumin/C reatinine Ratio 12.4 0.0 - 29.0 mg/g 08/28/2024 12:30 AM EDT [facility] Creatinine, Urine 137.3 mg/dL 08/28/2024 12:30 AM EDT [facility] Microalbumin, Urine 1.7 mg/dL 08/28/2024 12:30 AM EDT [facility] Urine Urine specimen obtained by clean catch procedure / Unknown Collection / Unknown 08/27/2024 12:16 PM EDT 08/27/2024 12:16 PM EDT Ellis Chang MD URINE ORDERABLES Final Re sult [facility]
[address] [place] [address], * (ABNORMAL) POC Glucose, Blood (08/27/2024 11:50 AM EDT) [facility] Glucose 150(A) 70 - 130 mg/dL Lot Number [id number] Expiration Date 02/08/25 Blood 08/27/2024 11:5 0 AM EDT Ellis Chang MD POINT OF CARE TEST ORDERA BLES Final Result * POC Glycosylated Hemoglobin (Hb A1C) (09/12/2022 12:16 PM EDT) Pathologist [facility] Hemoglobin A1C 9.6 % [facility] Lot Number [id number] [facility] Expiration Date 05/07/24 [facility] Blood 09/12/2022 12:1 6 PM EDT Ellis Chang MD POINT OF CARE TEST ORDERA BLES Final Result [facility]
[address] [place] [address], * (ABNORMAL) Lipid Panel With / Chol / HDL Ratio (02/21/2022 9:07 AM EST) Pathologist [facility] Total Cholesterol 176 0 - 200 mg/dL [...] 3:07 AM EST Performed at: 01 - [address] [id number] Director Of Education: Stew Greenberg MD, Phone: [phone] Patient Fasting: Y Elgin Logan MD LAB BLOOD ORDERABLES Final Resu lt Performing Organization Address City/[facility]/ZIP Co de Phone Number [facility] [address] [place] [address], [facility] [address] [place] [address], * Hepatitis C Antibody (12/14/2017 10:15 AM EDT) Hep C Virus Ab <0.1 0.0 - 0.9 s/co ratio [facility] Comment: Negative: < 0.8 Indeterminate: 0.8 - 0.9 Positive: > 0.9 The CDC recommends that a positive HCV antibody result be followed up with a HCV Nucleic Acid Amplification test (944094). Blood 12/14/2017 10:1 5 AM EDT 12/14/2017 Narrative [facility] - 12/15/2017 7:11 AM EDT Performed at: 02 - [facility] [address] [place] [id number] Director Of Education: Scooby Cevallos PhD, Phone: [phone] Patient Fasting: Y Elgin Logan MD LAB BLOOD ORDERABLES Final Resu lt Performing Organization Address [facility] Co de Phone Number [facility] ([facility]BUL[facility]) [address] [place] [address], [facility] [address] [place] [address], * SCANNED - COLONOSCOPY (02/22/2016) Elgin Logan MD CHART REVIEW TABS Final Resu lt from Last 3 Months or Most Recently Relevant to Health Maintenance Insurance [employer] MED[employer]ARE [employer]VANTAGE PPO Care Teams Head Cd Reactor Operator Relationship Specialty Start Date End Date Solo Lema DO [address] [place] [address] [place] [address] PCP - General Internal Medicine 08/27/24
--- OUTSIDE RECORDS SUMMARY | 2024-10-31 09:34 | XMS_ITS | Encounter Summary ---
Author Organization [employer] ([place], [place], [place], [place]) Address [address] [place] [address] Care Team Providers Care Network Controller Name Role Phone Elgin Logan MD Primary Care Provider Encounter Details Date Type Department Care Team (Late st Contact Info) Description 09/03/2019 Transcribed Document [facility] [place] Family [place] [facility] [place] [address] ProviderMarilynn MD [address] [place], [place] [address] Social History Tobacco Use Types Packs/Day Years [...] follow-up appointment. GRANT Ratliff/cristino Electronically signed by [facility] Conversion Ela Teacher Cerner at 06/13/2022 9:02 AM CDT documented in this encounter Plan of Treatment Not on file documented as of this encounter Visit Diagnoses Not on filedocumented in this encounter Care Teams Network Controller Relationship Specialty Start Date End Date Elgin Logan MD [address] [place] [address] PCP - General Family Medicine 03/16/22 documented as of this encounter
--- OUTSIDE RECORDS SUMMARY | 2024-10-31 09:34 | XMS_ITS | Encounter Summary ---
[facility] Address [address] [place] [address] Care Team Providers Care Cruller Maker Name Role Phone Wyatt Lemaew Ernie BENTLEY Primary Care Provider + Encounter Details Date Type Department Care Team (Late st Contact Info) Description 09/01/2024 Telephone [facility] MEDICAL [facility] ENDOCRINOLOGY [address] [address] Ellis Chang MD [address] [address] Social History Tobacco Use Types [...] Rep - 09/01/2024 12:54 PM EDT The [facility] received a fax that requires your attention. The document has been indexed to the patient???s chart for your review. Reason for sending: MEDICAL RECORDS REQUESTED Documents Description: LABS 07-25-2024 AND 07-29-2024 Name of Sender: ROVERTO HUTCHINSON [facility] [address] [facility] [place] [place] [address] PHONE [phone] FAX [phone] Date Indexed: 09-01-2024 Notes (if needed): INDEXED UNDER LABS. documented in this encounter Plan of Treatment Upcoming Encounters Date Type Department Care Team (Late st Contact Info) Description 04/29/2025 9:30 AM EST Office Visit [facility] ENDOCRINOLOGY [address] [address] Ellis Chang MD [address] [address] documented as of this encounter Visit Diagnoses Not on filedocumented in this encounter Care Teams Cruller Maker Relationship Specialty Start Date End Date Solo Lema DO [address] [place] [address] [facility] [id number] PCP - General Internal Medicine 08/27/24 documented as of this encounter
--- OUTSIDE RECORDS SUMMARY | 2024-10-31 09:34 | XMS_ITS | Encounter Summary ---
Author Organization [employer] ([place], [place], [place], [place]) Address [address] [place] [address] Care Team Providers Care Bird Sitter Name Role Phone Elgin Logan MD Primary Care Provider Encounter Details Date Type Department Care Team (Late st Contact Info) Description 01/04/2020 Transcribed Document [facility] [place] [facility] [place] [address] ProviderMarilynn MD [address] [place], [place] [address] Social History Tobacco Use Types Packs/Day Years Used Date Smoking Tobacco: Never Assessed Sex and Gender Information Value Date Recorded Sex Assigned at Not on file Legal Sex Male 3:24 PM CDT Gender Identity Not on file Sexual Orientation Not on file documented as of this encounter Miscellaneous Notes * [employer]ner Conversion Note - Marilynn ProviderMD - 01/04/2020 11:27 AM ARTIST REPRESENTATIVE Patient: ISIDRO WOMACK Age: 64 Years Sex: [...] in two months. Tania Veras M.D. YANICK/ac documented in this encounter Plan of Treatment Not on file documented as of this encounter Visit Diagnoses Not on filedocumented in this encounter Care Teams Bird Sitter Relationship Specialty Start Date End Date Elgin Logan MD [address] [facility] [place] [address] PCP - General Family Medicine 03/16/22 documented as of this encounter
--- OUTSIDE RECORDS SUMMARY | 2024-10-31 09:34 | XMS_ITS | Encounter Summary ---
Author Organization [employer] ([place], [place], [place], [place]) Address [address] [place] [address] Care Team Providers Care Bi Tester Name Role Phone Elgin Logan MD Primary Care Provider Encounter Details Date Type Department Care Team (Late st Contact Info) Description 07/10/2019 Transcribed Document [facility] [place] [address] ProviderMarilynn MD [address] [place], [place] [address] Social History Tobacco Use Types Packs/Day Years [...] In 2018 there was a decision from [employer] to not pay for his medications any more. This went before a Patient Care Secretary and the ruling was in favor of [...] also reported that him being cognisant that [employer] was footing the bill for this individual we had not looked to involve advanced treatment options. The Patient Care Secretary ruled in our favor and as such we have continued to take care of Mr. Womack in that regard. However, recently another issue arose with [employer] where they again stated they would not pay for his medications. It was my position that the previous ruling from 2018 still stood as nothing really had changed since that time. Unfortunately it has come to pass that [employer] is now wanting us to wean him [...] continues to play games with Mr. Womack's [facility] care then I would recommend we [...] no sense and the fact that any Patient Care Secretary who would not understand this indicates he needs help with basic math. Ian Gonsalves II, M.D. GUNNER/merari Electronically signed by Natty [facility] Conversion Cellular Plastics Cutter Cerner at 06/13/2022 9:07 AM CDT documented in this encounter Plan of Treatment Not on file documented as of this encounter Visit Diagnoses Not on filedocumented in this encounter Care Teams Bi Tester Relationship Specialty Start Date End Date Elgin Logan MD [address] [place] [address] PCP - General Family Medicine 03/16/22 documented as of this encounter
--- OUTSIDE RECORDS SUMMARY | 2024-10-31 09:34 | XMS_ITS | Encounter Summary ---
Author Organization [employer] ([place], [place], [place], [place]) Address [address] [place] [address] Care Team Providers Care Medical Record Consultant Name Role Phone Elgin Logan MD Primary Care Provider [phone] Encounter Details Date Type Department Care Team (Late st Contact Info) Description 10/29/2019 Transcribed Document [facility] [place] [address] ProviderMarilynn MD [address] [place], [place] [address] Social History Tobacco Use Types Packs/Day Years [...] facility. GRANT Ratliff/cristino Electronically signed by Natty [facility] Conversion Loadmaster Cerner at 06/13/2022 8:50 AM CDT documented in this encounter Plan of Treatment Not on file documented as of this encounter Visit Diagnoses Not on filedocumented in this encounter Care Teams Medical Record Consultant Relationship Specialty Start Date End Date Elgin Logan MD [address] [place] [address] PCP - General Family Medicine 03/16/22 documented as of this encounter
--- OUTSIDE RECORDS SUMMARY | 2024-10-31 09:35 | XMS_ITS | Encounter Summary ---
Author Organization Healthcare Address [address] [place] [address] Care Team Providers Care Director Pharmacovigilance Name Role Phone Harvey Milan MD Primary Care Provider [phone] Encounter Details Date Type Department Care Team (Late st Contact Info) Description 09/26/2024 Orders Only External Location [address] [place] [address] Provider, External Social History Tobacco Use Types [...] filedocumented in this encounter Care Teams Director Pharmacovigilance Relationship Specialty Start Date End Date Harvey Milan MD [address] [place] [address] [address] [place] [address] PCP - General 07/09/20 documented as of this encounter
--- OUTSIDE RECORDS SUMMARY | 2024-10-31 09:35 | XMS_ITS | Encounter Summary ---
Author Organization Healthcare Address [address] [place] [address] Care Team Providers Care Plating Equipment Tender Name Role Phone Harvey Milan MD Primary Care Provider [phone] Encounter Details Date Type Department Care Team (Late st Contact Info) Description 09/26/2024 Orders Only External Location [address] [place] [address] Provider, External Social History Tobacco Use Types [...] filedocumented in this encounter Care Teams Plating Equipment Tender Relationship Specialty Start Date End Date Harvey Milan MD [address] [place] [address] [address] [place] [address] PCP - General 07/09/20 documented as of this encounter
--- OUTSIDE RECORDS SUMMARY | 2024-10-31 09:35 | XMS_ITS | Encounter Summary ---
Author Organization [employer] ([place], [place], [place], [place]) Address [address] [place] [address] Care Team Providers Care Supervisor Boat Outfitting Name Role Phone Elgin Logan MD Primary Care Provider Encounter Details Date Type Department Care Team (Late st Contact Info) Description 11/05/2018 Transcribed Document [facility] [place] [facility] [address] ProviderMarilynn MD [address] [place], [place] [address] Social History Tobacco Use Types Packs/Day Years [...] on filedocumented in this encounter Care Teams Supervisor Boat Outfitting Relationship Specialty Start Date End Date Elgin Logan MD [address] [facility] [place] [address] PCP - General Family Medicine 03/16/22 documented as of this encounter
--- OUTSIDE RECORDS SUMMARY | 2024-10-31 09:35 | XMS_ITS | Encounter Summary ---
Author Organization Healthcare Address [address] [place] [address] Care Team Providers Care Floor Sanding Machine Operator Name Role Phone Harvey Milan MD Primary Care Provider [phone] Encounter Details Date Type Department Care Team (Late st Contact Info) Description 09/26/2024 Orders Only External Location [address] [place] [address] Provider, External Social History Tobacco Use Types [...] on filedocumented in this encounter Care Teams Floor Sanding Machine Operator Relationship Specialty Start Date End Date Harvey Milan MD [address] [place] [address] [address] [place] [address] PCP - General 07/09/20 documented as of this encounter
--- OUTSIDE RECORDS SUMMARY | 2024-10-31 09:35 | XMS_ITS | Encounter Summary ---
Author Organization [employer] ([place], [place], [place], [place]) Address [address] [place] [address] Care Team Providers Care Fish Net Stringer Name Role Phone Elgin Logan MD Primary Care Provider Encounter Details Date Type Department Care Team (Late st Contact Info) Description 12/26/[address] [facility] Family Medicine [facility] [place] [address] ProviderMarilynn MD [address] [place], [place] [address] Social History Tobacco Use Types Packs/Day Years [...] followup appointment. GRANT Ratliff/quin Electronically signed by [facility] Conversion Senior Firewall Engineer Cerner at 06/13/2022 8:54 AM CDT documented in this encounter Plan of Treatment Not on file documented as of this encounter Visit Diagnoses Not on filedocumented in this encounter Care Teams Fish Net Stringer Relationship Specialty Start Date End Date Elgin Logan MD [address] [place] [address] PCP - General Family Medicine 03/16/22 documented as of this encounter
--- OUTSIDE RECORDS SUMMARY | 2024-10-31 09:35 | XMS_ITS | Clinical Summary ---
Author Organization [facility] Address [address] [place] [address] Care Team Providers Care Signals Officer Name Role Phone Harvey Milan MD Primary Care Provider [phone] Encounters Date Type Department Care Team Description 09/26/2024 Orders Only External Location [address] [place] [address] Provider, External 09/26/2024 Orders Only External Location [address] [place] [address] Provider, External 09/26/2024 Orders Only External Location [address] [place] [address] Provider, External 09/26/2024 Orders Only External Location [address] [place] [address] Provider, External 09/26/2024 Orders Only External Location [address] [place] [address] Provider, External 09/26/2024 Orders Only External Location [address] [place] [address] Provider, External 09/26/2024 Orders Only External Location [address] [place] [address] Provider, External 09/26/2024 Orders Only External Location [address] [place] [address] Provider, External 09/26/2024 Orders Only External Location [address] [place] [address] Provider, External 09/26/2024 Orders Only External Location [address] [place] [address] Provider, External from Last 3 Months Social [...] Result from Last 3 Months Care Teams Signals Officer Relationship Specialty Start Date End Date Harvey Milan MD [address] [place] [address] [address] [place] [address] PCP - General 07/09/20
--- OUTSIDE RECORDS SUMMARY | 2024-10-31 09:35 | XMS_ITS | Encounter Summary ---
Author Organization Healthcare Address [address] [place] [address] Care Team Providers Care General Ophthalmologist Name Role Phone Harvey Milan MD Primary Care Provider [phone] Encounter Details Date Type Department Care Team (Late st Contact Info) Description 09/26/2024 Orders Only External Location [address] [place] [address] Provider, External Social History Tobacco Use Types [...] on filedocumented in this encounter Care Teams General Ophthalmologist Relationship Specialty Start Date End Date Harvey Milan MD [address] [place] [address] [address] [place] [address] PCP - General 07/09/20 documented as of this encounter
--- OUTSIDE RECORDS SUMMARY | 2024-10-31 09:35 | XMS_ITS | Encounter Summary ---
Author Organization Healthcare Address [address] [place] [address] Care Team Providers Care Airframe And Powerplant Technician Name Role Phone Harvey Milan MD Primary Care Provider Encounter Details Date Type Department Care Team (Late st Contact Info) Description 09/26/2024 Orders Only External Location [address] [place] [address] Provider, External Social History Tobacco Use Types [...] on filedocumented in this encounter Care Teams Airframe And Powerplant Technician Relationship Specialty Start Date End Date Harvey Milan MD [address] [place] [address] [address] [place] [address] PCP - General 07/09/20 documented as of this encounter
--- OUTSIDE RECORDS SUMMARY | 2024-10-31 09:35 | XMS_ITS | Encounter Summary ---
Author Organization Healthcare Address [address] [place] [address] Care Team Providers Care Operator Prefinish Name Role Phone Harvey Milan MD Primary Care Provider [phone] Encounter Details Date Type Department Care Team (Late st Contact Info) Description 09/26/2024 Orders Only External Location [address] [place] [address] Provider, External Social History Tobacco Use Types [...] on filedocumented in this encounter Care Teams Operator Prefinish Relationship Specialty Start Date End Date Harvey Milan MD [address] [place] [address] [address] [place] [address] PCP - General 07/09/20 documented as of this encounter
--- OUTSIDE RECORDS SUMMARY | 2024-10-31 09:35 | XMS_ITS | Referral Summary ---
Author Organization [employer] ([place], [place], [place], [place]) Address [address] [place] [address] Care Team Providers Care Services Delivery Driver Name Role Phone Elgin Logan MD Primary Care Provider [phone] Allergies No known active allergies Medications desmopressin [...] 03/10/19 23 Active naloxone (NARCAN) 4 mg/actuation [place] SMARTSIG:Both Nares 01/11/20 22 Active semaglutide (Ozempic) [...] Date Vlad rded Speak language other than Greek at home Not on file 03/11/2023 Want [...] H[employer] MEDICARE PPO Care Teams Services Delivery Driver Relationship Specialty Start Date End Date Elgin Logan MD [address] [place] [address] PCP - General Family Medicine 03/16/22
--- OUTSIDE RECORDS SUMMARY | 2024-10-31 09:35 | XMS_ITS | Encounter Summary ---
Author Organization Healthcare Address [address] [place] [address] Care Team Providers Care Tumbling And Rolling Supervisor Name Role Phone Harvey Milan MD Primary Care Provider [phone] Encounter Details Date Type Department Care Team (Late st Contact Info) Description 09/26/2024 Orders Only External Location [address] [place] [address] Provider, External Social History Tobacco Use Types [...] on filedocumented in this encounter Care Teams Tumbling And Rolling Supervisor Relationship Specialty Start Date End Date Harvey Milan MD [address] [place] [address] [address] [place] [address] PCP - General 07/09/20 documented as of this encounter
--- OUTSIDE RECORDS SUMMARY | 2024-10-31 09:35 | XMS_ITS | Encounter Summary ---
Author Organization Healthcare Address [address] [place] [address] Care Team Providers Care Structural Biologist Name Role Phone Harvey Milan MD Primary Care Provider [phone] Encounter Details Date Type Department Care Team (Late st Contact Info) Description 09/26/2024 Orders Only External Location [address] [place] [address] Provider, External Social History Tobacco Use Types [...] on filedocumented in this encounter Care Teams Structural Biologist Relationship Specialty Start Date End Date Harvey Milan MD [address] [place] [address] [address] [place] [address] PCP - General 07/09/20 documented as of this encounter
== END 2024-10-29 23:59 | disposition home or self-care (01) ==
LOC: LAB.DROPOF 10-31 09:29
PROVIDERS: PCP Internal Medicine; Visit Provider Internal Medicine
DX: E11.9 Type 2 diabetes mellitus without complications (principal); I10 Essential (primary) hypertension; D58.2 Other hemoglobinopathies; E29.1 Testicular hypofunction; R79.89 Other specified abnormal findings of blood chemistry; Z79.4 Long term (current) use of insulin; Z79.899 Other long term (current) drug therapy
CPT/HCPCS: 80053; 80061; 82672; 83036; 84403; 85025

== ENCOUNTER 2024-11-11 15:56 | Outpatient (CLI) | payer MEDICARE, SELFPAY ==
--- OUTSIDE RECORDS SUMMARY | 2024-11-11 15:58 | XMS_ITS | Encounter Summary ---
Author Organization [facility] Address [address] [place] [address] Care Team Providers Care Ur Coordinator Name Role Phone Wyatt Lemaew Ernie BENTLEY Primary Care Provider + Encounter Details Date Type Department Care Team (Late st Contact Info) Description 10/06/2024 Telephone [facility] [address] [address] Ellis Chang MD [address] [address] Social History Tobacco Use Types [...] 04/29/2025 9:30 AM EST Office Visit [facility] [address] [address] Ellis Chang MD [address] [address] documented as of this encounter Visit Diagnoses Not on filedocumented in this encounter Care Teams Ur Coordinator Relationship Specialty Start Date End Date Solo Lema DO [address] [facility] [address] [place] [place] [address] PCP - General Internal Medicine 08/27/24 documented as of this encounter
--- OUTSIDE RECORDS SUMMARY | 2024-11-11 15:58 | XMS_ITS | Encounter Summary ---
Author Organization Healthcare Address [address] [place] [address] Care Team Providers Care Lead Press Operator Name Role Phone Harvey Milan MD Primary Care Provider [phone] Encounter Details Date Type Department Care Team (Late st Contact Info) Description 09/26/2024 Orders Only External Location [address] [place] [address] Provider, External Social History Tobacco Use Types [...] filedocumented in this encounter Care Teams Lead Press Operator Relationship Specialty Start Date End Date Harvey Milan MD [address] [place] [address] [address] [place] [address] PCP - General 07/09/20 documented as of this encounter
--- OUTSIDE RECORDS SUMMARY | 2024-11-11 15:58 | XMS_ITS | Clinical Summary ---
Author Organization [facility] Address [address] [place] [address] Care Team Providers Care Appliance Mechanic Name Role Phone Harvey Milan MD Primary Care Provider [phone] Encounters Date Type Department Care Team Description 09/26/2024 Orders Only External Location [address] [place] [address] Provider, External 09/26/2024 Orders Only External Location [address] [place] [address] Provider, External 09/26/2024 Orders Only External Location [address] [place] [address] Provider, External 09/26/2024 Orders Only External Location [address] [place] [address] Provider, External 09/26/2024 Orders Only External Location [address] [place] [address] Provider, External 09/26/2024 Orders Only External Location [address] [place] [address] Provider, External 09/26/2024 Orders Only External Location [address] [place] [address] Provider, External 09/26/2024 Orders Only External Location [address] [place] [address] Provider, External 09/26/2024 Orders Only External Location [address] [place] [address] Provider, External 09/26/2024 Orders Only External Location [address] [place] [address] Provider, External from Last 3 Months Social [...] Result from Last 3 Months Care Teams Appliance Mechanic Relationship Specialty Start Date End Date Harvey Milan MD [address] [place] [address] [address] [place] [address] PCP - General 07/09/20
--- OUTSIDE RECORDS SUMMARY | 2024-11-11 15:58 | XMS_ITS | Encounter Summary ---
Author Organization Healthcare Address [address] [place] [address] Care Team Providers Care Chief School Finance Officer Name Role Phone Harvey Milan MD Primary Care Provider [phone] Encounter Details Date Type Department Care Team (Late st Contact Info) Description 09/26/2024 Orders Only External Location [address] [place] [address] Provider, External Social History Tobacco Use Types [...] on filedocumented in this encounter Care Teams Chief School Finance Officer Relationship Specialty Start Date End Date Harvey Milan MD [address] [place] [address] [address] [place] [address] PCP - General 07/09/20 documented as of this encounter
--- OUTSIDE RECORDS SUMMARY | 2024-11-11 15:58 | XMS_ITS | Encounter Summary ---
Author Organization [facility] Address [address] [place] [address] Care Team Providers Care White Sidewall Tire Buffer Name Role Phone Wyatt Lemaew Ernie BENTLEY Primary Care Provider + Encounter Details Date Type Department Care Team (Late st Contact Info) Description 09/01/2024 Telephone [facility] END[facility]CR[facility] [address] [address] Ellis Chang MD [address] [address] Social History Tobacco Use Types [...] Rep - 09/01/2024 12:54 PM EDT [facility] received a fax that requires your attention. The document has been indexed to the patient???s chart for your review. Reason for sending: MEDICAL RECORDS REQUESTED Documents Description: LABS 07-25-2024 AND 07-29-2024 Name of Sender: [facility] [address] [place] [address] PHONE [phone] FAX [phone] Date Indexed: 09-01-2024 Notes (if needed): INDEXED UNDER LABS. documented in this encounter Plan of Treatment Upcoming Encounters Date Type Department Care Team (Late st Contact Info) Description 04/29/2025 9:30 AM EST Office Visit [facility] ENDOCR[facility] [address] [address] lElis Chang MD [address] [address] documented as of this encounter Visit Diagnoses Not on filedocumented in this encounter Care Teams White Sidewall Tire Buffer Relationship Specialty Start Date End Date Solo Lema DO [address] [place] [address] [facility] [address] PCP - General Internal Medicine 08/27/24 documented as of this encounter
--- OUTSIDE RECORDS SUMMARY | 2024-11-11 15:58 | XMS_ITS | Encounter Summary ---
Author Organization Healthcare Address [address] [place] [address] Care Team Providers Care Buyer Grain Name Role Phone Harvey Milan MD Primary Care Provider [phone] Encounter Details Date Type Department Care Team (Late st Contact Info) Description 09/26/2024 Orders Only External Location [address] [place] [address] Provider, External Social History Tobacco Use Types [...] on filedocumented in this encounter Care Teams Buyer Grain Relationship Specialty Start Date End Date Harvey Milan MD [address] [place] [address] [address] [place] [address] PCP - General 07/09/20 documented as of this encounter
--- OUTSIDE RECORDS SUMMARY | 2024-11-11 15:58 | XMS_ITS | Encounter Summary ---
Author Organization Healthcare Address [address] [place] [address] Care Team Providers Care Senior Director Insight Name Role Phone Harvey Milan MD Primary Care Provider Encounter Details Date Type Department Care Team (Late st Contact Info) Description 09/26/2024 Orders Only External Location [address] [place] [address] Provider, External Social History Tobacco Use Types [...] filedocumented in this encounter Care Teams Senior Director Insight Relationship Specialty Start Date End Date Harvey Milan MD [address] [place] [address] [address] [place] [address] PCP - General 07/09/20 documented as of this encounter
--- OUTSIDE RECORDS SUMMARY | 2024-11-11 15:58 | XMS_ITS | Encounter Summary ---
Author Organization Healthcare Address [address] [place] [address] Care Team Providers Care Operation Manager Name Role Phone Harvey Milan MD Primary Care Provider [phone] Encounter Details Date Type Department Care Team (Late st Contact Info) Description 09/26/2024 Orders Only External Location [address] [place] [address] Provider, External Social History Tobacco Use Types [...] on filedocumented in this encounter Care Teams Operation Manager Relationship Specialty Start Date End Date Harvey Milan MD [address] [place] [address] [address] [place] [address] PCP - General 07/09/20 documented as of this encounter
--- OUTSIDE RECORDS SUMMARY | 2024-11-11 15:58 | XMS_ITS | Encounter Summary ---
Author Organization Healthcare Address [address] [place] [address] Care Team Providers Care Residential Assistant Name Role Phone Harvey Milan MD Primary Care Provider [phone] Encounter Details Date Type Department Care Team (Late st Contact Info) Description 09/26/2024 Orders Only External Location [address] [place] [address] Provider, External Social History Tobacco Use Types [...] on filedocumented in this encounter Care Teams Residential Assistant Relationship Specialty Start Date End Date Harvey Milan MD [address] [place] [address] [address] [place] [address] PCP - General 07/09/20 documented as of this encounter
--- OUTSIDE RECORDS SUMMARY | 2024-11-11 15:58 | XMS_ITS | Encounter Summary ---
Author Organization Healthcare Address [address] [place] [address] Care Team Providers Care Pool Finisher Name Role Phone Harvey Milan MD Primary Care Provider [phone] Encounter Details Date Type Department Care Team (Late st Contact Info) Description 09/26/2024 Orders Only External Location [address] [place] [address] Provider, External Social History Tobacco Use Types [...] on filedocumented in this encounter Care Teams Pool Finisher Relationship Specialty Start Date End Date Harvey Milan MD [address] [place] [address] [address] [place] [address] PCP - General 07/09/20 documented as of this encounter
--- OUTSIDE RECORDS SUMMARY | 2024-11-11 15:58 | XMS_ITS | Clinical Summary ---
Author Organization [facility] Address [address] [place] [address] Care Team Providers Care Prosthetic Aides Teacher Name Role Phone Solo Lema Ernie Primary [...] 09/12/19 23 Active Insulin Pen Needle (Pen [place]) 32G X 4 MM misc 1 each Daily. 100 each 3 09/13/19 23 Active desmopressin (DDAVP) 0.1 MG tabletIndicati ons:Diabetes insipidus TAKE 1 TABLET BY MOUTH TWICE A DAY 180 tablet 1 08/24/19 24 Active Continuous Glucose Sensor (Dexcom G7 Sensor) [facility] Use 1 each Every 10 (Ten) [...] Diabetes will be reassessed in 6 months. DexAbsolicon Solar Concentrator G7 CGM was downloaded today. Data was [...] Type Department Care Team Description 10/06/2024 Telephone [facility] ENDOCR[facility] [address] [place] [address] Ellis Chang MD 09/01/2024 Telephone [facility] [address] [place] [address] Ellis Chang MD 08/28/2024 Results Follow-Up [facility] [address] [place] [address] Ellis Chang MD 08/27/2024 11:45 AM EDT Office Visit [facility] [address] [place] [address] Ellis Chang MD Type 2 diabetes mellitus [...] Description 04/29/2025 9:30 AM EST Office Visit [facility] ENDOCR[facility] [address] [address] Ellis Chang MD [address] [address] Health Maintenance Due Date Last Done Comments [...] Clean Catch (08/27/2024 12:16 PM EDT) Pathologist [facility] Microalbumin/C reatinine Ratio 12.4 0.0 - 29.0 mg/g 08/28/2024 12:30 AM EDT [facility] Creatinine, Urine 137.3 mg/dL 08/28/2024 12:30 AM EDT [facility] Microalbumin, Urine 1.7 mg/dL 08/28/2024 12:30 AM EDT [facility] Urine Urine specimen obtained by clean catch procedure / Unknown Collection / Unknown 08/27/2024 12:16 PM EDT 08/27/2024 12:16 PM EDT Ellis Chang MD URINE ORDERABLES Final Re sult [facility]
[address] [place] [address], * (ABNORMAL) POC Glucose, Blood (08/27/2024 11:50 AM EDT) [facility] Glucose 150(A) 70 - 130 mg/dL Lot Number [id number] Expiration Date 02/08/25 Blood 08/27/2024 11:5 0 AM EDT Ellis Chang MD POINT OF CARE TEST ORDERA BLES Final Result * POC Glycosylated Hemoglobin (Hb A1C) (09/12/2022 12:16 PM EDT) Pathologist [facility] Hemoglobin A1C 9.6 % [facility] Lot Number [id number] [facility] Expiration Date 05/07/24 [facility] Blood 09/12/2022 12:1 6 PM EDT Ellis Chang MD POINT OF CARE TEST ORDERA BLES Final Result [facility]
[address] [place] [address], * (ABNORMAL) Lipid Panel With / Chol / HDL Ratio (02/21/2022 9:07 AM EST) Pathologist [facility] Total Cholesterol 176 0 - 200 mg/dL [...] 3:07 AM EST Performed at: 01 - [address] [id number] Tool Supervisor: Stew Greenberg MD, Phone: [phone] Patient Fasting: Y Elgin Logan MD LAB BLOOD ORDERABLES Final Resu lt Performing Organization Address City/[facility]/ZIP Co de Phone Number [facility] [address] [place] [address], [facility] [address] [place] [address], * Hepatitis C Antibody (12/14/2017 10:15 AM EDT) Hep C Virus Ab <0.1 0.0 - 0.9 s/co ratio [facility] Comment: Negative: < 0.8 Indeterminate: 0.8 - 0.9 Positive: > 0.9 The CDC recommends that a positive HCV antibody result be followed up with a HCV Nucleic Acid Amplification test (328815). Blood 12/14/2017 10:1 5 AM EDT 12/14/2017 N[facility]ative [facility] - 12/15/2017 7:11 AM EDT Performed at: 02 - [facility] [address] [place] [id number] Tool Supervisor: Scooby Cevallos PhD, Phone: [phone] Patient Fasting: Y Elgin Logan MD LAB BLOOD ORDERABLES Final Resu lt Performing Organization Address [facility] Co de Phone Number [facility] [address] [place] [address], [facility] [address] [place] [address], * SCANNED - COLONOSCOPY (02/22/2016) Elgin Logan MD CHART REVIEW TABS Final Resu lt from Last 3 Months or Most Recently Relevant to Health Maintenance Insurance [employer] MEDICARE ADVANTAGE PPO Care Teams Prosthetic Aides Teacher Relationship Specialty Start Date End Date Solo Lema DO [address] [place] [address] PCP - General Internal Medicine 08/27/24
--- OUTSIDE RECORDS SUMMARY | 2024-11-11 15:59 | XMS_ITS | Encounter Summary ---
Author Organization Healthcare Address [address] [place] [address] Care Team Providers Care Customer Solutions Specialist Name Role Phone Harvey Milan MD Primary Care Provider [phone] Encounter Details Date Type Department Care Team (Late st Contact Info) Description 09/26/2024 Orders Only External Location [address] [place] [address] Provider, External Social History Tobacco Use Types [...] on filedocumented in this encounter Care Teams Customer Solutions Specialist Relationship Specialty Start Date End Date Harvey Milan MD [address] [place] [address] [address] [place] [address] PCP - General 07/09/20 documented as of this encounter
--- OUTSIDE RECORDS SUMMARY | 2024-11-11 15:59 | XMS_ITS | Encounter Summary ---
Author Organization Healthcare Address [address] [place] [address] Care Team Providers Care Weaver Narrow Fabrics Name Role Phone Harvey Milan MD Primary Care Provider [phone] Encounter Details Date Type Department Care Team (Late st Contact Info) Description 09/26/2024 Orders Only External Location [address] [place] [address] Provider, External Social History Tobacco Use Types [...] on filedocumented in this encounter Care Teams Weaver Narrow Fabrics Relationship Specialty Start Date End Date Harvey Milan MD [address] [place] [address] [address] [place] [address] PCP - General 07/09/20 documented as of this encounter
--- OUTSIDE RECORDS SUMMARY | 2024-11-11 15:59 | XMS_ITS | Encounter Summary ---
Author Organization Healthcare Address [address] [place] [address] Care Team Providers Care Workforce Management Manager Name Role Phone Harvey Milan MD Primary Care Provider [phone] Encounter Details Date Type Department Care Team (Late st Contact Info) Description 09/26/2024 Orders Only External Location [address] [place] [address] Provider, External Social History Tobacco Use Types [...] on filedocumented in this encounter Care Teams Workforce Management Manager Relationship Specialty Start Date End Date Harvey Milan MD [address] [place] [address] [address] [place] [address] PCP - General 07/09/20 documented as of this encounter
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
== END 2024-11-11 23:59 | disposition home or self-care (01) ==
LOC: RAD 15:56
PROVIDERS: PCP Internal Medicine; Visit Provider Physician Assistant
DX: S42.111D Displaced fracture of body of scapula, right shoulder, subsequent encounter for fracture with routine healing (principal); M75.121 Complete rotator cuff tear or rupture of right shoulder, not specified as traumatic; M62.511 Muscle wasting and atrophy, not elsewhere classified, right shoulder; M19.011 Primary osteoarthritis, right shoulder; Z98.890 Other specified postprocedural states
CPT/HCPCS: 73221

== ENCOUNTER 2024-12-01 09:43 | Outpatient (CLI) | payer MEDICARE, SELFPAY ==
--- OUTSIDE RECORDS SUMMARY | 2024-12-02 01:58 | XMS_ITS | Encounter Summary ---
Author Organization [employer] ([place], [place], [place], [place]) Address [address] [place] [address] Care Team Providers Care College Or University Business Manager Name Role Phone Elgin Logan MD Primary Care Provider Encounter Details Date Type Department Care Team (Late st Contact Info) Description 04/28/2019 Transcribed Document [facility] [place] [facility] [place] [address] ProviderMarilynn MD [address] [place], [place] [address] Social History Tobacco Use Types Packs/Day Years Used Date Smoking Tobacco: Never Assessed Sex and Gender Information Value Date Recorded Sex Assigned at Not on file Legal Sex Male 3:24 PM CDT Gender Identity Not on file Sexual Orientation Not on file documented as of this encounter Miscellaneous Notes * Cerner Conversion Note - Marilynn ProviderMD - 04/28/2019 1:30 PM COMPRESSION MOLDING MACHINE TENDER Patient: ISIDRO WOMACK Age: 63 Years Sex: [...] radiating, numbness/tingling, dull and sharp. He takes vodz-kge-emerwiu medications but did not specify. He has [...] PLAN: I have received a letter from [employer] that they were no longer going [...] not so I have told him to [employer] as it was their order. If he could provide documentation that they would still cover it we would change it. He has an understanding of the plan. I am going to have him see Dr. Gonsalves at his next visit because he wanted to discuss this further. Tania Veras M.D. YANICK/quin Electronically signed by Natty [facility] Conversion Paper Cone Drying Machine Operator Cerner at 06/13/2022 9:12 AM CDT documented in this encounter Plan of Treatment Not on file documented as of this encounter Visit Diagnoses Not on filedocumented in this encounter Care Teams College Or University Business Manager Relationship Specialty Start Date End Date Elgin Logan MD [address] [place] [address] PCP - General Family Medicine 03/16/22 documented as of this encounter
--- OUTSIDE RECORDS SUMMARY | 2024-12-02 01:58 | XMS_ITS | Encounter Summary ---
[facility] Organization [facility] Address [address] [place] [address] Care Team Providers Care Network Security Officer Name Role Phone Wyatt Lemaew Ernie BENTLEY Primary Care Provider + Encounter Details Date Type Department Care Team (Late st Contact Info) Description 10/06/2024 Telephone [facility] [address] [address] Ellis Chang MD [address] [address] Social History Tobacco Use Types [...] Description 04/29/2025 9:30 AM EST Office Visit [facility] [address] [address] Ellis Chang MD [address] [address] documented as of this encounter Visit Diagnoses Not on filedocumented in this encounter Care Teams Network Security Officer Relationship Specialty Start Date End Date Solo Lema DO [address] [facility] [address] [place] [address] PCP - General Internal Medicine 08/27/24 documented as of this encounter
--- OUTSIDE RECORDS SUMMARY | 2024-12-02 01:58 | XMS_ITS | Encounter Summary ---
Author Organization [employer] ([place], [place], [place]) Address [address] [place] [address] Care Team Providers Care Apparel Fashion Designer Name Role Phone Elgin Logan MD Primary Care Provider [phone] Encounter Details Date Type Department Care Team (Late st Contact Info) Description 03/05/2020 Transcribed Document [facility] [place] [facility] [place] [address] ProviderMarilynn MD [address] [place], [place] [address] Social History Tobacco Use Types Packs/Day Years Used Date Smoking Tobacco: Never Assessed Sex and Gender Information Value Date Recorded Sex Assigned at Not on file Legal Sex Male 3:24 PM CDT Gender Identity Not on file Sexual Orientation Not on file documented as of this encounter Miscellaneous Notes * Cerner Conversion Note - Historical ProviderMD - 03/05/2020 3:30 PM WOOL CLEANER Patient: ISIDRO WOMACK Age: 64 Years Sex: [...] He had recently seen an administrative low roving can tender who had decided to discontinue his Voltaren Gel as well as having the patient return to the clinic every three months. He tried to explain to the roving can tender about our current requirements to come back [...] on filedocumented in this encounter Care Teams Apparel Fashion Designer Relationship Specialty Start Date End Date Elgin Logan MD [address] [place] [address] PCP - General Family Medicine 03/16/22 documented as of this encounter
--- OUTSIDE RECORDS SUMMARY | 2024-12-02 01:58 | XMS_ITS | Encounter Summary ---
Author Organization [employer] ([place], [place], [place]) Address [address] [place] [address] Care Team Providers Care Traffic Chief Name Role Phone Elgin Logan MD Primary Care Provider Encounter Details Date Type Department Care Team (Late st Contact Info) Description 09/03/[address] [facility] [place] [facility] [place] [address] ProviderMarilynn MD [address] [place], [place] [address] Social History Tobacco Use Types Packs/Day Years [...] follow-up appointment. GRANT Ratliff/cristino Electronically signed by [facility], [facility] Conversion Dry Mill Worker Cerner at 06/13/2022 9:02 AM CDT documented in this encounter Plan of Treatment Not on file documented as of this encounter Visit Diagnoses Not on filedocumented in this encounter Care Teams Traffic Chief Relationship Specialty Start Date End Date Elgin Logan MD [address] [place] [address] PCP - General Family Medicine 03/16/22 documented as of this encounter
--- OUTSIDE RECORDS SUMMARY | 2024-12-02 01:58 | XMS_ITS | Clinical Summary ---
Author Organization [facility] Address [address] [place] [address] Care Team Providers Care Advertising Internship Name Role Phone Solo Lema Ernie Primary [...] 09/12/19 23 Active Insulin Pen Needle (Pen [place]) 32G X 4 MM misc 1 each Daily. 100 each 3 09/13/19 23 Active desmopressin (DDAVP) 0.1 MG tabletIndicati ons:Diabetes insipidus TAKE 1 TABLET BY MOUTH TWICE A DAY 180 tablet 1 08/24/19 24 Active Continuous Glucose Sensor (Dexcom G7 Sensor) [facility] Use 1 each Every 10 (Ten) Days. [...] Diabetes will be reassessed in 6 months. DexMakuCell G7 CGM was downloaded today. Data was [...] Type Department Care Team Description 10/06/2024 Telephone [facility] ENDOCR[facility] [address] [place] [address] Ellis Chang MD 09/01/2024 Telephone [facility] [address] [place] [address] Ellis Chang MD from Last 3 Months Immunizations Immunization Administration [...] Description 04/29/2025 9:30 AM EST Office Visit [facility] [address] [facility] [address] [place] [address] Ellis Chang MD [address] [facility] [address] [place] [address] Health Maintenance Due Date Last Done Comments TDAP/TD VACCINES (1 - Tdap) 1973 COLOGUARD 06/30/1999 COLON CANCER SCREENING 5 LINOA R SIGMOIDOSCOPY 06/30/1999 CT COLONOGRAPHY 06/30/1999 FECAL [...] 01/27, 11/14/2021, Additional history exists INFLUENZA VACCINE 09/26/2024 12/14/2017 (Declined) COVID-19 Vaccine (2 6 season) 2024 01/08/2022, 06/10/2021, 12/02/2020, Additional history exists URINE MICROALBUMIN-CREATININ E RATIO (uACR) 08/27/2025 08/27/2024, [...] 12:16 PM EDT 08/27/2024 12:16 PM EDT us Ellis Chang MD URINE ORDERABLES Final Re sult [facility]
[address] [place] [address], [place] [phone] * POC Glycosylated Hemoglobin (Hb A1C) (09/12/2022 12:16 PM EDT) Pathologist [facility] Hemoglobin A1C 9.6 % [facility] Lot Number [id number] [facility] Expiration Date 05/07/24 [facility] Blood 09/12/2022 12:1 6 PM EDT us Ellis Chang MD POINT OF CARE TEST ORDERA BLES Final Result [facility]
[address] [place] [address], [place] [phone] * (ABNORMAL) Lipid Panel With / Chol / HDL Ratio (02/21/2022 9:07 AM EST) [facility] Total Cholesterol 176 0 - 200 mg/dL [...] 02/23/2022 3:07 AM EST Performed at: [address] [id number] Educational Specialist: Stew Greenberg MD, Phone: [phone] Patient Fasting: Y us Elgin Logan MD LAB BLOOD ORDERABLES Final Resu lt Performing Organization Address City/[facility]/ZIP Co de Phone Number [facility] [address] [place] [address], [facility] [address] [place], [place] [id number], * Hepatitis C Antibody (12/14/2017 10:15 AM EDT) [facility] Hep C Virus Ab <0.1 0.0 - 0.9 s/co ratio [facility] Comment: Negative: < 0.8 Indeterminate: 0.8 - 0.9 Positive: > 0.9 The CDC recommends that a positive HCV antibody result be followed up with a HCV Nucleic Acid Amplification test (900520). Blood 12/14/2017 10:1 5 AM EDT 12/14/2017 Narrative [facility]) - 12/15/2017 7:11 AM EDT Performed at: [address] [id number] Educational Specialist: Scooby Cevallos PhD, Phone: [phone] Patient Fasting: Y us Elgin Logan MD LAB BLOOD ORDERABLES Final Resu lt Performing Organization Address City/[facility]/ZIP Co de Phone Number [facility] [address] [place] [address], [place] [phone] [facility] [address] [place] [address], * SCANNED - COLONOSCOPY (02/22/2016) us Elgin Logan MD CHART REVIEW TABS Final Resu lt from Last 3 Months or Most Recently Relevant to Health Maintenance Insurance [employer] MEDICARE ADVANTAGE PPO Care Teams Advertising Internship Relationship Specialty Start Date End Date Solo Lema DO [address] [place] [address] [place] [address] PCP - General Internal Medicine 08/27/24
--- OUTSIDE RECORDS SUMMARY | 2024-12-02 01:58 | XMS_ITS | Encounter Summary ---
Author Organization [employer] ([place], [place], [place]) Address [address] [place] [address] Care Team Providers Care Oim Architect Name Role Phone Elgin Logan MD Primary Care Provider Encounter Details Date Type Department Care Team (Late st Contact Info) Description 10/29/2019 Transcribed Document [facility] [place] Family [place] [facility] [place] [address] ProviderMarilynn MD [address] [place], [place] [address] Social History Tobacco Use Types Packs/Day Years [...] facility. GRANT Ratliff/cristino Electronically signed by Natty [facility] Conversion Ham Pumper Cerner at 06/13/2022 8:50 AM CDT documented in this encounter Plan of Treatment Not on file documented as of this encounter Visit Diagnoses Not on filedocumented in this encounter Care Teams Oim Architect Relationship Specialty Start Date End Date Elgin Logan MD [address] [place] [address] PCP - General Family Medicine 03/16/22 documented as of this encounter
--- OUTSIDE RECORDS SUMMARY | 2024-12-02 01:58 | XMS_ITS | Referral Summary ---
Author Organization [employer] ([place], [place], [place]) Address [address] [place] [address] Care Team Providers Care Bed Machine Operator Name Role Phone Elgin Logan MD Primary Care Provider [phone] Allergies No known active allergies Medications desmopressin [...] 03/10/19 23 Active naloxone (NARCAN) 4 mg/actuation Stigler SMARTSIG:Both Nares 01/11/20 22 Active semaglutide (Ozempic) [...] Date Vlad rded Speak language other than Panamanian at home Not on file 03/11/2023 Want [...] [employer] MEDIC[employer] PPO Care Teams Bed Machine Operator Relationship Specialty Start Date End Date Elgin Logan MD [address] [place] [address] PCP - General Family Medicine 03/16/22
--- OUTSIDE RECORDS SUMMARY | 2024-12-02 01:58 | XMS_ITS | Encounter Summary ---
Author Organization [employer] ([place] Address [address] [place] [address] Care Team Providers Care Paper Tube Cutter Name Role Phone Elgin Logan MD Primary Care Provider Encounter Details Date Type Department Care Team (Late st Contact Info) Description 11/05/2018 Transcribed Document [facility] [place] [facility] [place] [address] ProviderMarilynn MD [address] [place], [place] [address] Social History Tobacco Use Types Packs/Day Years [...] Veras M.D. YANICK/quin Electronically signed by Natty, [facility] Conversion Explosive Operator Supervisor Cerner at 06/13/2022 8:50 AM CDT documented in this encounter Plan of Treatment Not on file documented as of this encounter Visit Diagnoses Not on filedocumented in this encounter Care Teams Paper Tube Cutter Relationship Specialty Start Date End Date Elgin Logan MD [address] [facility] [place] [place] [address] PCP - General Family Medicine 03/16/22 documented as of this encounter
--- OUTSIDE RECORDS SUMMARY | 2024-12-02 01:58 | XMS_ITS | Clinical Summary ---
Author Organization [facility] Address [address] [place] [address] Care Team Providers Care Electrical Transmission Engineer Name Role Phone Harvey Milan MD Primary Care Provider [phone] Encounters Date Type Department Care Team Description 09/26/2024 Orders Only External Location [address] [place] [address] Provider, External 09/26/2024 Orders Only External Location [address] [place] [address] Provider, External 09/26/2024 Orders Only External Location [address] [place] [address] Provider, External 09/26/2024 Orders Only External Location [address] [place] [address] Provider, External 09/26/2024 Orders Only External Location [address] [place] [address] Provider, External 09/26/2024 Orders Only External Location [address] [place] [address] Provider, External 09/26/2024 Orders Only External Location [address] [place] [address] Provider, External 09/26/2024 Orders Only External Location [address] [place] [address] Provider, External 09/26/2024 Orders Only External Location [address] [place] [address] Provider, External 09/26/2024 Orders Only External Location [address] [place] [address] Provider, External from Last 3 Months Social [...] from Last 3 Months Care Teams Electrical Transmission Engineer Relationship Specialty Start Date End Date Harvey Milan MD [address] [place] [address] [address] [place] [address] PCP - General 07/09/20
--- OUTSIDE RECORDS SUMMARY | 2024-12-02 01:58 | XMS_ITS | Clinical Summary ---
Author Organization [employer] ([place], [place], [place], [place]) Address [address] [place] [address] Care Team Providers Care Boot Turner Name Role Phone Elgin Logan MD Primary Care Provider [phone] Allergies No known active allergies Medications desmopressin [...] 03/10/19 23 Active naloxone (NARCAN) 4 mg/actuation Harrells SMARTSIG:Both Nares 01/11/20 22 Active semaglutide (Ozempic) [...] Date Vlad rded Speak language other than Khmer at home Not on file 03/11/2023 Want [...] Cessation Counseling and Screening (12+) 03/16/2023 03/16/2022 Falls Risk Screening 02/27/2024 COVID-19 VACCINE (6 - 2024-2 6 season) 2024 01/08/2022, 06/10/2021, 12/02/2020, Additional history exists Influenza Vaccine (#1) 2024 Respiratory Syncytial Virus (RSV) Adult or (1 - 1-dose 75+ series) 2029 Insurance [facility] PPO Care Teams Boot Turner Relationship Specialty Start Date End Date Elgin Logan MD [address] [facility] [place] [address] PCP - General Family Medicine 03/16/22
--- OUTSIDE RECORDS SUMMARY | 2024-12-02 01:58 | XMS_ITS | Encounter Summary ---
Author Organization [employer] ([place], [place], [place], [place]) Address [address] [place] [address] Care Team Providers Care Nurse Companion Name Role Phone Elgin Logan MD Primary Care Provider Encounter Details Date Type Department Care Team (Late st Contact Info) Description 01/04/2020 Transcribed Document [facility] [place] [place] Family Medicine [facility] [place] [address] ProviderMarilynn MD [address] [place] [place], [place] [address] Social History Tobacco Use Types Packs/Day Years Used Date Smoking Tobacco: Never Assessed Sex and Gender Information Value Date Recorded Sex Assigned at Not on file Legal Sex Male 3:24 PM CDT Gender Identity Not on file Sexual Orientation Not on file documented as of this encounter Miscellaneous Notes * Cerner Conversion Note - Marilynn ProviderMD - 01/04/2020 11:27 AM KNAPSACK SPRAYER Patient: ISIDRO WOMACK Age: 64 Years Sex: [...] Veras M.D. YANICK/ac Electronically signed by Natty, [facility] Conversion Hr Administrative Assistant Cerner at 06/13/2022 8:46 AM CDT documented in this encounter Plan of Treatment Not on file documented as of this encounter Visit Diagnoses Not on filedocumented in this encounter Care Teams Nurse Companion Relationship Specialty Start Date End Date Elgin Logan MD [address] [facility] [place] [address] PCP - General Family Medicine 03/16/22 documented as of this encounter
--- OUTSIDE RECORDS SUMMARY | 2024-12-02 01:58 | XMS_ITS | Encounter Summary ---
Author Organization [employer] ([place], [place], [place], [place]) Address [address] [place] [address] Care Team Providers Care Caster Helper Name Role Phone Elgin Logan MD Primary Care Provider Encounter Details Date Type Department Care Team (Late st Contact Info) Description 12/26/2018 Transcribed Document [facility] [place] [facility] [address] ProviderMarilynn MD [address] [place], [place] [address] Social History Tobacco Use Types Packs/Day Years [...] followup appointment. GRANT Ratliff/quin Electronically signed by [facility] Conversion Can Cleaner Cerner at 06/13/2022 8:54 AM CDT documented in this encounter Plan of Treatment Not on file documented as of this encounter Visit Diagnoses Not on filedocumented in this encounter Care Teams Caster Helper Relationship Specialty Start Date End Date Elgin Logan MD [address] [place] [address] PCP - General Family Medicine 03/16/22 documented as of this encounter
--- OUTSIDE RECORDS SUMMARY | 2024-12-02 01:58 | XMS_ITS | Encounter Summary ---
Author Organization [employer] ([place], [place], [place], [place]) Address [address] [place] [address] Care Team Providers Care Graphic Illustrator Name Role Phone Elgin Logan MD Primary Care Provider Encounter Details Date Type Department Care Team (Late st Contact Info) Description 05/17/2020 Transcribed Document [facility] [place] [address] ProviderMarilynn MD [address] [place], [place] [address] Social History Tobacco Use Types Packs/Day Years [...] on filedocumented in this encounter Care Teams Graphic Illustrator Relationship Specialty Start Date End Date Elgin Logan MD [address] [place] [address] PCP - General Family Medicine 03/16/22 documented as of this encounter
--- OUTSIDE RECORDS SUMMARY | 2024-12-02 01:58 | XMS_ITS | Encounter Summary ---
Author Organization [employer] ([place], [place], [place], [place]) Address [address] [place] [address] Care Team Providers Care Outsoles Channel Opener Name Role Phone Elgin Logan MD Primary Care Provider Encounter Details Date Type Department Care Team (Late st Contact Info) Description 03/04/2019 Transcribed Document [facility] [place] Family Medicine [facility] [place] [address] ProviderMarilynn MD [address] [place], [place] [address] Social History Tobacco Use Types Packs/Day Years Used Date Smoking Tobacco: Never Assessed Sex and Gender Information Value Date Recorded Sex Assigned at Not on file Legal Sex Male 3:24 PM CDT Gender Identity Not on file Sexual Orientation Not on file documented as of this encounter Miscellaneous Notes * Cerner Conversion Note - Historical ProviderMD - 03/04/2019 2:48 PM HIDE CLEANER Patient: ISIDRO WOMACK Age: 63 Years Sex: [...] I am going to refer him to [facility] for a lumbar brace for pain and [...] on filedocumented in this encounter Care Teams Outsoles Channel Opener Relationship Specialty Start Date End Date Elgin Logan MD [address] [facility] [place] [address] PCP - General Family Medicine 03/16/22 documented as of this encounter
--- OUTSIDE RECORDS SUMMARY | 2024-12-02 01:58 | XMS_ITS | Encounter Summary ---
Author Organization [facility] [employer] ([place], [place], [place], [place]) Address [address] [place] [address] Care Team Providers Care Television News Reporter Name Role Phone Elgin Logan MD Primary Care Provider Encounter Details Date Type Department Care Team (Late st Contact Info) Description 07/10/2019 Transcribed Document [facility] [place] Family [facility] [place] [address] ProviderMarilynn MD [address] [place], [place] [id number] Social History Tobacco Use Types Packs/Day Years [...] In 2018 there was a decision from [employer] to not pay for his medications any more. This went before a Wool Fleece Sorter and the ruling was in favor of [...] also reported that him being cognisant that ice was footing the bill for this individual we had not looked to involve advanced treatment options. The Wool Fleece Sorter ruled in our favor and as such we have continued to take care of Mr. Womack in that regard. However, recently another issue arose with [employer] where they again stated they would not pay for his medications. It was my position that the previous ruling from 2018 still stood as nothing really had changed since that time. Unfortunately it has come to pass that ice is now wanting us to wean him [...] continues to play games with Mr. Womack's [facility] care then I would recommend [...] no sense and the fact that any Wool Fleece Sorter who would not understand this indicates he needs help with basic math. Ian Gonsalves II, M.D. GUNNER/merari Electronically signed by Natty [facility] Conversion Partner Management Consultant Cerner at 06/13/2022 9:07 AM CDT documented in this encounter Plan of Treatment Not on file documented as of this encounter Visit Diagnoses Not on filedocumented in this encounter Care Teams Television News Reporter Relationship Specialty Start Date End Date Elgin Logan MD [address] [place] [id number] PCP - General Family Medicine 03/16/22 documented as of this encounter
== END 2024-12-01 23:59 | disposition home or self-care (01) ==
LOC: LAB.DROPOF 12-02 01:57
PROVIDERS: PCP Internal Medicine; Visit Provider Internal Medicine
DX: E29.1 Testicular hypofunction (principal); Z79.899 Other long term (current) drug therapy; R79.89 Other specified abnormal findings of blood chemistry
CPT/HCPCS: 82672